=== PATIENT | female | born 1945 | race Caucasian/White ===

== ENCOUNTER → 2024-02-12 14:50 | Outpatient (REF) | payer MEDICARE, SELFPAY | LOC: RAD 14:50 | PROVIDERS: ATTENDING PHYSICIAN Internal Medicine | DX: M79.671 Pain in right foot (principal) | CPT/HCPCS: 73630 ==

== ENCOUNTER → 2024-10-10 09:44 | Outpatient (REF) | payer MEDICARE, SELFPAY | LOC: RAD 09:44 | PROVIDERS: ATTENDING PHYSICIAN Internal Medicine | DX: M54.42 Lumbago with sciatica, left side (principal) | CPT/HCPCS: 72110 ==

== ENCOUNTER 2024-11-16 09:57 | Inpatient (IN) | payer MEDICARE, SELFPAY ==
[2024-11-16] VITALS (60 sets, daily range): BP systolic 73–198; BP diastolic 42–121; PULSE 2; BMI 39.2
--- NOTE | 2024-11-16 06:24 | EDRN ---
150mg IVP amiodarone given by MUKUND Ortiz per VO Dr Waggoner who requested it IVP, no infused over 10 minutes.
--- NOTE | 2024-11-16 06:25 | EDRN ---
Portable CXR being done - Dr Waggoner preparing to intubate.
[2024-11-16] MEDS: AMIDATE 20 MG IV (06:31)
--- NOTE | 2024-11-16 06:32 | EDRN ---
70mg IV rocuronium given at 0631 by Diana Goodman RN per Dr Waggoner
--- NOTE | 2024-11-16 06:33 | EDRN ---
Pt intubated with 7.[address] Waggoner, positive color change
[2024-11-16] MEDS: DIPRIVAN 100 IV ×2 (06:39→17:41)
--- NOTE | 2024-11-16 06:42 | ED.GENMED ---
History of Present Illness
General
Chief Complaint: Breathing Problem
Time Seen by Provider: 11/16/24 06:16
History of Present Illness
History of Present Illness:
79-year-old female with history of high blood pressure, diabetes, hyperlipidemia, arthritis presenting in respiratory distress. Per medics, arrived to the house with increased work of breathing and tachycardia. Patient was placed on CPAP and given
a DuoNeb. They were concerned for SVT, however no medications administered. On arrival, patient limited historian given her increased work of breathing, diaphoretic. Patient does note cough. Denies chest pain or fever. Denies any history of
COPD. Denies any history of CHF. No additional history obtained at this time given her critical condition
Past History
Past History
ED Past Medical History: NIDDM
ED Past Surgical History: Orthopedic (Bilateral knee replacements and recent left hip replacement.)
Social History
Tobacco: Non-smoker
Alcohol: None
Drug: None
Personal:
Living: with family
Employment: Retired
Family History
Family History: Other (Noncontributory)
Phy Exam
Physical Exam
Physical Exam:
General: Severe respiratory distress, diaphoretic
HEENT: Minimally protecting airway
Neck: appears supple
CV: Normal heart rate, regular rhythm
Resp: Increased work of breathing, accessory muscle use, rhonchorous breath sounds bilaterally
Abd: Soft and non-distended, no tenderness to palpation
Extremities: No deformities, no swelling, no erythema
Neuro: alert, no focal neurologic deficit. Somnolent but arousable
: deferred
Rectal: deferred
Psych: Normal affect
Skin: Intact
Scores
Heart Failure Risk
Heart Failure Risk Score: Not Applicable
Course
Orders/Labs/Results
Orders:
Orders
11/16/24
Echo 2D MMode Color/Doppler Stat
Reason for Study: HEART FAILURE
11/16/24 Breakfast
NPO
Allow oral meds: No
Allow clear liquids: No
11/16/24 06:13
Chest X-ray Portable [CR Chest Portable - 1 View] Stat
Comment:
Reason For Exam: sob
Reason Study Needs to be Portable: Patient Unstable
11/16/24 06:16
Electrocardiogram (*1) Urgent
Reason for Study: Shortness of Breath
EKG- Treatment ONCE
11/16/24 06:23
CT Chest PE Study Urgent
Comment:
Reason For Exam: SOB
11/16/24 06:28
Etomidate [Amidate 20 mg] 20 mg IV NOW STA
11/16/24 06:31
Etomidate [Amidate] 20 mg IV NOW STA
11/16/24 06:34
Propofol 1,000,000 Mcg/100 ml [Diprivan] 1,000,000 mcg in 100 ml .ROUTE .STK-MED
11/16/24 06:42
Complete Blood Count/With Diff Urgent
Comprehensive Metabolic Panel Urgent
NT-proBNP Urgent
PTT Urgent
Prothrombin Time Urgent
Triglycerides Urgent
Comment: ADD ON
Venous Blood Gas Urgent
%Oxygen/Room Air: 100
11/16/24 06:51
EKG [Electrocardiogram (*1)] Urgent
Reason for Study: Tachycardia
EKG- Treatment ONCE
11/16/24 06:52
Amiodarone [Cordarone] 150 mg .ROUTE .STK-MED ONE
11/16/24 06:59
Lactate Level [Lactic Acid] Urgent
11/16/24 07:00
Amiodarone [Cordarone] 900 mg DEXTROSE 5% PVC-free BAG [D5W PVC-free BAG] 500 ml IV ONCE
11/16/24 07:03
Amiodarone [Cordarone] 900 mg DEXTROSE 5% PVC-free BAG [D5W PVC-free BAG] 500 ml IV NOW
Initial Dose in mg/min:: 1
Duration of initial dose (hours):: 6
Subsequent dose in mg/min:: 0.5
Duration of subsequent dose (hours):: 18
Maximum dose in mg/min:: 1
Hold and notify provider if:: Heart rate < 60 BPM or SBP < 90 mmHg or MAP < 60 mmHg
11/16/24 07:07
COVID-19 Antigen Urgent
Source: Nasal Swab
Influenza A+B Rapid Molecular Urgent
PRACHI Source: Nasal Swab
Specimen Description:
11/16/24 07:09
Add On- LAB Routine
Tests Added?: triglycerides
11/16/24 07:10
Blood Culture Q30M
PRACHI Source: Blood/Venous
Specimen Description:
Blood Culture Q30M
PRACHI Source: Blood/Venous
Specimen Description:
11/16/24 07:15
Propofol 1,000,000 Mcg/100 ml [Diprivan] 1,000,000 mcg in 100 ml IV PER PROTOCOL
Indication:: Deep Sedation
Begin Infusion:: Now
Goal:: RASS -3 to -5 or BIS < 60 or ventilator synchrony
Maximum dose in mcg/kg/min:: 50
Continue currently infusion dose and titrate:: Yes
Titration Instructions:: Titrate by 5-10 mcg/kg/min every 5 minutes until RASS -3 to -5 or
Titration Instructions:: BIS < 60 or ventilator synchrony is met.
Titration Instructions:: Administer analgesia bolus dose(s) & titrate analgesia prior to
Titration Instructions:: adjusting sedation.
Taper Instructions:: If RASS is at or below goal for 4 consecutive hours decrease infusion by
Taper Instructions:: 5-10 mcg/kg/min every 2 hours. Do not wean infusion to off if patient is
Taper Instructions:: receiving a continuous NMBA or has received bolus NMBA with the past 3 hrs
Over-sedation Instructions:: If BIS < 40 and synchronous with ventilator decrease infusion by
Over-sedation Instructions:: 5-10 mcg/kg/min every 2 hour until BIS = 40-60.
Notify provider:: immediately if patient exhibits signs/symptoms of propofol-related
Notify provider:: infusion syndrome.
Additional Instructions:: Patient MUST be mechanically ventilated and MUST receive analgesia.
11/16/24 07:24
Propofol [Diprivan] 20 ml .ROUTE .STK-MED
11/16/24 07:25
Amiodarone [Cordarone] 150 mg Dextrose 5%/Water 100 ml [D5w] 100 ml IV NOW
11/16/24 07:50
0.9% Sodium Chloride 1000 ml [Nss] 1,000 ml IV BOLUS
11/16/24 08:16
FentaNYL 1,000 MCG/100 ML [Sublimaze] 1,000 mcg in 100 ml .ROUTE .STK-MED
11/16/24 08:17
ABG [Arterial Blood Gas] Stat
%Oxygen/Room Air: ac 18 500 5 100%
Comment: post intubation
11/16/24 08:59
NORepinephrine 4 MG/250 ML [Levophed] 4 mg in 250 ml .ROUTE .STK-MED
11/16/24 09:00
NORepinephrine 4 MG/250 ML [Levophed] 4 mg in 250 ml IV PER PROTOCOL
Currently infusing. Continue current dose and titrate:: Yes
Titrate to keep:: MAP > 65 mmHg
Titrate by mcg/min:: 1-2 mcg/min
Frequency of titrations (minutes):: 5
Maximum dose in ICU in mcg/min:: 30
Maximum dose in IMU in mcg/min:: 8
Maximum dose in IVU in mcg/min:: 4
Begin to taper infusion when:: Remained at goal for 4hrs
Taper by mcg/min:: 1-2 mcg/min
Frequency of taper (minutes) if patient maintains goal:: 30
Taper to off?: Yes
If infusion off & no longer maintaining goal:: Contact Provider
11/16/24 09:15
Admit/Transfer Patient As Directed
Co-Sign Provider:
Level of Care: Inpatient admission
Assign to:: ICU
Physician / Group: radhaist-Jose Raul
Diagnosis: resp distress
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
Expected length of stay greater than two midnights?: Yes
ELOS- Estimated Length of Stay in days: 5
I certify the patient meets the requirements for IP care: Yes
PRN Pain Medication Management As Directed
May give lesser potent ordered pain med per pt: Yes
preference::
Protocol:: Medication orders for pain may be administered in a
manner that supports deferring to patient preference
when the pt is:
- Requesting an ordered lesser potent pain medication.
Least to most potent pain medications are defined
as: acetaminophen < NSAID < tramadol < opioids
(morphine, oxycodone, hydromorphone).
- Requesting a lesser dose of the same medication IF
ORDERED.
- Requesting a less intrusive route of administration
if both routes are prescribed by the provider (PO <
IV).
11/16/24 09:17
Troponin I Stat
Aspirin 300 mg RECTAL NOW STA
11/16/24 09:18
Code Status As Directed
Resuscitation Status: Full Code
11/16/24 09:30
0.9% Sodium Chloride 1000 ml [Nss] 1,000 ml IV 125 mls/hr
11/16/24 09:44
Heparin 10,000 units .ROUTE .STK-MED ONE
Heparin 1000 Units/500 ml [Heparin] 1,000 units in 500 ml .ROUTE .STK-MED
Heparin Sodium,Porcine/Ns/Pf [Heparin 2000 Units/1000 ml] 2,000 unit in 1,000 ml .ROUTE .STK-MED
Lidocaine HCl/Pf [Xylocaine-Mpf 1% Vial] 50 mg .ROUTE .STK-MED ONE
Nitroglycerin [Tridil] 1,500 mcg .ROUTE .STK-MED ONE
Verapamil Injectable [Isoptin/Verapamil Injection] 5 mg .ROUTE .STK-MED ONE
11/16/24 09:48
FentaNYL 1,000 MCG/100 ML [Sublimaze] 1,000 mcg in 100 ml IV NOW
11/16/24 11:37
Dextrose 50%-Water [Dextrose 50% Syringe] 12.5 grams IV [id number] PRN
Glucagon [GlucaGen] 1 mg IM PRN PRN
Insulin Aspart Corrective Low [Novolog Flexpen-Low Resistance] See Protocol SC AC
11/16/24 11:37
CARDIOLOGY CONSULT Routine
Consulting Provider: Adrian Hussein
Was physician already notified: Yes
HF DIETARY CONSULT Routine
HF EDUCATOR CONSULT Routine
Comment:
Wing Mailer Machine Operator Consult Routine
Consulting Provider: Kobe Dickey
Was physician already notified: Yes
Activity As Directed
Activity Level: Bedrest
Bedside Glucose Monitoring As Directed
Frequency: AC&HS
Additional Instructions:: Change to q6h if pt on TPN, tube feeding or not eating
Castillo Catheter [Catheter- Indwelling] As Directed
Reason for insertion: I&O's Critical Care
Assess insertion reason daily.Remove if no longer applicable: Yes
Intake/ Output As Directed
Frequency: Per unit guidelines
Patient Education As Directed
Type: CHF folder
Comment: give on admission. Document in Interdisciplinary Education record
Sleep Apnea Assessment by RN As Directed
Comment:
Physician Instructions:
Vital Signs As Directed
Frequency: Other
Additional Instructions:: Q12 or per unit guidelines if more frequent.
Weight As Directed
Frequency: Daily
Type of Scale: Standing Scale
Comment: Daily morning weight. If unable to stand, use balanced bed scale.
Weight As Directed
Frequency: Once
Type of Scale: Standing Scale
Comment: Upon Admission. If unable to stand, use balanced bed scale.
Pulse Ox/cont/shift [RESP] Routine
Quantity: 1
Special Instructions: Daily pulse oximetry at rest. If greater than 92% at rest also obtain pulse oximetry
while ambulating as tolerated.
DX Deep Vein Thrombosis Video Routine
11/16/24 12:35
Lactic Acid Q4H
TSH Reflex To Free T4 Routine
Troponin I Q6H
Comment: at admission & every 6 hours x 2 (3 total), ECG to be done with each level
11/16/24 13:05
Urinalysis Reflex To Culture Routine
Date Specimen was Collected: 11/16/24
Time Specimen was Collected: 13:04
11/16/24 17:37
Troponin I Q6H
Comment: at admission & every 6 hours x 2 (3 total), ECG to be done with each level
11/16/24 18:00
Enoxaparin Sodium [Lovenox] 40 mg SC QPM
11/16/24 19:37
Lactic Acid Q4H
11/16/24 20:00
Cefepime HCl [Maxipime] 1,000 mg IV Q6H
11/16/24 23:37
Lactic Acid Q4H
Troponin I Q6H
Comment: at admission & every 6 hours x 2 (3 total), ECG to be done with each level
11/17/24 06:00
Cardiovascular Evaluation IN AM
Complete Blood Count/No Diff IN AM
Comprehensive Metabolic Panel IN AM
Glycohemoglobin (HgbA1c) IN AM
Magnesium IN AM
11/19/24 06:00
Triglycerides Q3D
Comment: every 72 hours while patient is on propofol
11/22/24 06:00
Triglycerides Q3D
Comment: every 72 hours while patient is on propofol
11/25/24 06:00
Triglycerides Q3D
Comment: every 72 hours while patient is on propofol
Abnormal Lab Results
11/16/24 11/16/24 11/16/24
06:42 06:44 06:59
WBC 26.0 H 10^3/uL
(4.8-10.8)
Abs Immat Gran (auto) 0.3 H 10^3/uL
(0-0.05)
Absolute Neuts (auto) 22.2 H 10^3/uL
(1.4-6.5)
Absolute Monos (auto) 0.8 H 10^3/uL
(0.1-0.6)
Immature Gran % 1.3 H %
(0-0.5)
Neutrophils % 85.3 H %
(42.2-75.2)
Lymphocytes % 9.2 L %
(20.5-51.1)
pH
pCO2
pO2
VBG pH 7.22 L
(7.32-7.43)
VBG pCO2 56 H mmHg
(35-48)
VBG pO2 89 H mmHg
(30-50)
Chloride 97 L mmol/L
(98-107)
BUN 31 H mg/dl
(7-17)
Glucose 304 H mg/dl
(70-99)
Lactic Acid 4.2 H* mmol/L
(0.7-2.0)
Triglycerides 246 H mg/dl
(10-149)
POC Glucose 284 H mg/dl
(70-99)
11/16/24
08:17
WBC
Abs Immat Gran (auto)
Absolute Neuts (auto)
Absolute Monos (auto)
Immature Gran %
Neutrophils %
Lymphocytes %
pH 7.30 L
(7.35-7.45)
pCO2 45 H mmHg
(32-35)
pO2 119 H mmHg
(83-108)
VBG pH
VBG pCO2
VBG pO2
Chloride
BUN
Glucose
Lactic Acid
Triglycerides
POC Glucose
11/16/24 06:42
11/16/24 06:42
Vital Signs
Initial and Last Documented VS:
Initial Vital Signs
Pulse Ox
98
11/16/24 06:12
Last Documented Vital Signs
Pulse Resp BP Pulse Ox
85 20 109/64 94
11/16/24 15:15 11/16/24 15:15 11/16/24 15:15 11/16/24 15:15
Procedures
Intubations
Procedure completed by: Maria G Waggoner DO
Method of Intubation: glidescope
Tube size (cm): 7.5
Placement confirmed by: auscutation and CXR
Breath sounds after intubation: equal
Intubation complications: no complications
Central Line
Left Femoral:
Indication for procedure:: hypotension
Procedure completed by: Maria G Waggoner DO
Consent form signed: Yes
Anesthesia: 1% Lidocaine
Central line lumen: triple
Number of attempts: 1
Central line complications: none
Sterile dressing applied?: Yes
MDM/Problems Addressed
MDM/Problems Addressed:
79-year-old female with history of high blood pressure, hyperlipidemia, diabetes presenting with acute respiratory distress. Vital signs and arrival significant for hypoxia and tachypnea.
On arrival, patient and respiratory distress with increased work of breathing, somnolent however arousable. Unclear history, does note some cough. Initial attempt at BiPAP, however minimally protecting airway, so decision made to proceed with
intubation given her work of breathing. Please see procedure note. Differential considerations include pneumonia versus influenza versus PE versus cardiac pathology. EKG shows left bundle branch block, which appears new from 2018, however no
[place] criteria. Prior to intubation, patient did have a run of ventricular tachycardia, received 1 bolus of amiodarone. Plan for laboratory analysis, chest x-ray imaging, propofol drip for sedation.
07:00 - No complications with intubation, however patient now in sustained wide complex, tachycardia. Patient shocked 2 times at 200 J, followed by 2 times at 360, synchronized. No conversion of rhythm. Starting amnio drip. Cardiac consulted,
will come down for evaluation. Patient with elevated white blood cell count, will start broad-spectrum antibiotics. Plan for CT imaging of the chest when stabilized
07:35 -cardiology to bedside, recommends additional amnio bolus. Discussed with family, and daughters. Reports that patient was in her usual state of health last evening. This morning around 3 AM, woke up feeling short of breath. Only
complaint the patient had had for the past several months was right leg pain, was scheduled to get an MRI. No history of blood clots in the past. No significant history of cardiac issues or arrhythmias. At this time, continue concern for PE.
Will send to CT as soon as patient stabilized
08:40 -central line placed due to need for multiple IV medications including sedation, antibiotics. CT without evidence of PE, motion artifact. Evidence of suspected pneumonia. Patient meeting criteria for septic shock. Will continue IV fluids
and antibiotics. Holding full 30 cc/kg fluid bolus given pulmonary edema on CT as well, possible concomitant heart failure. Plan for admission to ICU.
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 Plan to take patient to the [facility]
*EKG
Interpreted by ED Provider?: Yes
EKG Intrepretation Date: 11/16/24
EKG Intrepretation Time: 06:46
Interpretation: abnormal
Comparison EKG: changes noted (04/16/18)
Heart Rate: 82
Rate: normal
Rhythm: sinus
[place]: normal axis
Interval: normal interval
QRS Pattern: left bundle branch block
Ischemia: no ischemia
*Critical Care Note
Total Time (30-74mins, 75-104mins- exclusive of procedures): 150
comment:
The high probability of a clinically significant, sudden or life threatening deterioration of the cardiopulmonary system(s) required my full and direct attention, intervention and personal management. The aggregate critical care time was 62 minutes.
This time is in addition to time spent performing reported procedures but includes the following:
[x] Data Review and interpretation
[x] Patient assessment and monitoring of vital signs
[x] Documentation
[x] Medication orders and management
ED Attending Note
-
Portions of this chart may have been created with voice recognition software.� Occasional wrong word or��sound alike� substitutions may have occurred due to the inherent limitations of voice recognition software.
Discharge Plan
Departure
Patient Disposition: Admit
Date of Disposition: 11/16/24
Time of Disposition: 08:51
Presentation/result/management discussed w/ accepting MD/DO: Hospitalist
Condition: Critical
Discharge Problem:
Septic shock, Multifocal pneumonia, Respiratory failure with hypoxia
Interventions
Interventions:
*Risk Screen - Suicide Last Done: 11/16/24 06:15
*General Assessment Last Done: 11/16/24 06:15
*Neglect/Abuse Screening Last Done: 11/16/24 06:15
*ED COVID-19 Vaccine History Last Done: 11/16/24 06:33
*Nursing Disposition Last Done: 11/16/24 10:28
Discharge Date and Time
Discharge Date/Time: 11/16/24 10:00
[2024-11-16 06:45] LABS: Glucose - Point of Care 284 mg/dl (70-99)
--- NOTE | 2024-11-16 06:48 | EDRN ---
Pt in [place] with bonnie - Dr Waggoner shocked pt at 200J
--- NOTE | 2024-11-16 06:49 | EDRN ---
Pt shocked with 200J again by Dr Waggoner - remains in [place] with pulse
--- NOTE | 2024-11-16 06:51 | EDRN ---
Dr Waggoner shocked pt at [facility] - called pharmacy for stat amiodarone infusion
--- NOTE | 2024-11-16 06:55 | EDRN ---
Pads repositioned by Dr Ring - Pt shocked at 360J by Dr Waggoner
[2024-11-16 07:01] LABS: Hematocrit 41.7 % (37.0-47.0); Mean Corp Hgb Conc. 33.6 g/dL (33.0-37.0); Mean Corpuscular Volume 86.5 fL (81.0-99.0); Mean Platelet Volume 9.2 fL (7.4-10.4); Platelet Count 338 10^3/uL (130-400); Red Blood Cell Count 4.82 10^6/uL (4.20-5.40); Red Cell Dist. Width 13.4 % (11.5-14.5)
[2024-11-16] MEDS: CORDARONE 518 MG IV (07:04)
[2024-11-16 07:07] LABS: INR 1.02; PT 13.7 Sec (11.4-14.6)
[2024-11-16 07:08] LABS: APTT 26.2 Sec (23.4-35.0)
[2024-11-16 07:12] LABS: ALT (SGPT) 27 U/L (0-35); AST (SGOT) 35 U/L (14-36); Albumin 4.8 g/dl (3.5-5.0); Alkaline Phosphatase 74 U/L (38-126); Blood Urea Nitrogen 31 mg/dl (7-17); Calcium 9.4 mg/dl (8.4-10.2); Carbon Dioxide 24 mmol/L (22-30); Chloride 97 mmol/L (98-107); Glucose 304 mg/dl (70-99); Potassium 4.4 mmol/L (3.5-5.1); Sodium 138 mmol/L (135-145); Total Bilirubin 0.9 mg/dl (0.2-1.3); Total Protein 7.6 g/dl (6.3-8.2); eGFR > 60.00
--- NOTE | 2024-11-16 07:13 | EDRN ---
Called pharmacy for vancomycin
[2024-11-16 07:18] LABS: Triglycerides 246 mg/dl (10-149)
[2024-11-16 07:19] LABS: Venous Blood Gas B.E. -5.6 mmol/L (-4 to +4); Venous Blood Gas HCO3 22.9 mmol/L (22-27); Venous Blood Gas O2 Sat % 96.3 %; Venous Blood Gas pCO2 56 mmHg (35-48); Venous Blood Gas pH 7.22 (7.32-7.43); Venous Blood Gas pO2 89 mmHg (30-50)
[2024-11-16 07:20] LABS: NT-proBNP 353 pg/ml
[2024-11-16] MEDS: CORDARONE 103 MG IV (07:25)
[2024-11-16 07:44] LABS: Lactic Acid 4.2 mmol/L (0.7-2.0)
[2024-11-16 07:45] LABS: COVID-19 Antigen Negative (Negative)
--- NOTE | 2024-11-16 07:52 | CON.CAR ---
Consultation
Consultation Request
Date/Time Consultation Requested: 11/16/2024 7 AM
Date/Time Consultation Performed: 11/16/2024 7:10 AM
Requesting Provider: Emergency department physician
Performing Provider: Dr. Hussein
Reason for Consultation: Acute respiratory failure your, left bundle branch block and tachycardia
Medical History
-
History of Present Illness:
79-year-old woman previously followed by Dr. Urbano history of left bundle branch block, history of palpitations related to symptomatic PVCs, NSVT up to 4 beats on prior monitoring, diabetes and hypertension. Patient's been having issues with
her right lower extremity pain 4 weeks and was going to have evaluation for but has not had any additional imaging. Has made ambulation difficult. This morning patient woke up and then went downstairs and then had acute onset of shortness of
breath EMS called. Patient brought to ER on arrival patient had reported cough but no other complaints and patient was so short of breath not much history could be obtained. Patient intubated shortly after arrival to the emergency department.
Initial ECG with sinus and left bundle branch block. Patient noted to have some wide-complex tachycardia prior to intubation so was placed on IV amiodarone. Follow-up ECG showed wide-complex tachycardia with left bundle branch block morphology
consistent with baseline ECG. Findings most likely SVT or atrial flutter with underlying left bundle branch block.
No reports of chest pain
No history of coronary artery disease. No history of DVT or PE.
Additional history obtained from patient's and daughters who state that she had not been complaining of shortness of breath cough or any recent illness.
Patient with no known history of coronary artery disease previous echocardiogram from 2020 with ejection fraction of 60% mild eccentric mitral regurgitation and aortic sclerosis without stenosis.
Past medical history
Diabetes
Hypertension
Hypercholesterolemia
Bilateral knee replacement
Bilateral hip replacement
Symptomatic PVCs
Past Medical History
Past Medical History: Other (As above)
Social History
Tobacco: Non-Smoker
Personal:
Family History
Family History: CAD
Allergies / Home Medications
Allergy/AdvReac Type Severity Reaction Status Date / Time
No Known Allergies Allergy Verified 11/16/24 06:32
�Medication �Instructions �Recorded �Confirmed �Type
hydrochlorothiazide 50 mg tablet 50 mg PO DAILY 11/18/11 01/22/13 History
lisinopril 10 mg tablet 10 mg PO DAILY 11/18/11 01/22/13 History
metformin 500 mg tablet,extended 500 mg PO DAILY 02/18/12 01/22/13 History
release 24 hr (Glucophage XR)
Aspirin 81 mg PO DAILY 01/01/13 01/22/13 History
Calcium/Magnesium/Zinc 1 tab PO DAILY 01/01/13 01/22/13 History
Colon Health - Probiotic 1 tab PO DAILY 01/01/13 01/22/13 History
Over 40 Multivitamin 1 tab PO DAILY 01/01/13 01/22/13 History
Tramadol Hcl 50 mg PO PRN hip pain 01/01/13 01/22/13 History
ascorbic acid (vitamin C) 500 mg 500 mg PO DAILY 01/01/13 01/22/13 History
tablet (Vitamin C)
cholecalciferol (vitamin D3) 25 1,000 unit PO DAILY 01/01/13 01/22/13 History
mcg (1,000 unit) capsule
coenzyme Q10 100 mg capsule 200 mg PO DAILY 01/01/13 01/22/13 History
(CoQ-10)
cranberry fruit concentrate 450 mg 450 mg PO BID 01/01/13 01/22/13 History
tablet
lutein 20 mg capsule 20 mg PO DAILY 01/01/13 01/22/13 History
simvastatin 40 mg tablet 40 mg PO DAILY 01/01/13 01/22/13 History
vitamin B complex 1 ea PO DAILY 01/01/13 01/22/13 History
Tylenol Arthritis 2 PO DAILY PRN pain 01/21/13 01/22/13 History
acetaminophen 325 mg tablet 2 PO PRN pain 01/21/13 01/22/13 History
Review of Systems
-
Unable to obtain full review of systems at this time due to: Patient Intubation
Physical Exam
Vital Signs
Pulse Resp BP Pulse Ox
151 18 145/87 94
11/16/24 07:10 11/16/24 07:10 11/16/24 07:10 11/16/24 07:10
Lab Results
11/16/24 06:42
11/16/24 06:42
Qaj-T-Cnervcolsug Pept 353 pg/ml 11/16/24 06:42
Physical Exam
General: Other (Intubated sedated)
HEENT: Other (Pupils are equal ET tube in place external ear exam unremarkable)
Respiratory: Other (Vented breath sounds with no wheezing or rhonchi)
Cardiac: Regular Rhythm (Tachycardic and regular no murmurs auscultated. Significant and extrinsic noise during exam)
GI: Soft and Other (Obese with no detected masses)
Musculoskeletal: No Clubbing and No Cyanosis
Skin: Warm
Neuro: Other (Sedated and intubated)
Psych: Other (Sedated and intubated)
Impression / Plan
-
Acute respiratory failure. Exact etiology unclear. Would consider pulmonary embolism in this patient who has had issues with right lower extremity pain, limitations in ambulation and obesity. Will also need to consider other causes as well.
-Chest CT/PE protocol. Additional recommendations based on results.
-echo
.
Wide-complex tachycardia. Patient with underlying left bundle branch block patient with a heart rate of 150 with stable blood pressure. Likely aberrantly conducted SVT or possible atrial flutter
-Continue IV amiodarone.
,
Right lower extremity pain. Has been persistent for weeks patient with previous knee replacement and hip replacement exact etiology unclear. With WBC count of 26 possibility of underlying infection a consideration.
-Additional evaluation as directed by primary team.
.
Diabetes management directed by primary team
-Hypertension. Stable. Monitor
Hypercholesterolemia. Continue statin
Critical care time 60-minute
Data Reviewed
-
EKG: Report Reviewed by me
Medical Tests (Nuc Med, Echo etc): Report Reviewed by me
Labs: Labs Reviewed by me
[2024-11-16 08:24] LABS: % Basophils 0.5 % (0-2); % Eosinophils 0.6 % (0-6); % Immature Granulocytes 1.3 % (0-0.5); % Lymphocytes 9.2 % (20.5-51.1); % Monocytes 3.1 % (1.7-9.3); % Neutrophils 85.3 % (42.2-75.2); Absolute Basophils 0.1 10^3/uL (0-0.2); Absolute Eosinophils 0.2 10^3/uL (0-0.7); Absolute Immature Granulocytes 0.3 10^3/uL (0-0.05); Absolute Lymphocytes 2.4 10^3/uL (1.2-3.4); Absolute Monocytes 0.8 10^3/uL (0.1-0.6); Absolute Neutrophils 22.2 10^3/uL (1.4-6.5); Nucleated Red Blood Cells % 0 %
[2024-11-16 08:29] LABS: B.E. -4.3 mmol/L; HCO3 22.1 mmol/L (21-28); PCO2 45 mmHg (32-35); PO2 119 mmHg (83-108)
[2024-11-16] MEDS: NSS 1000 IV ×4 (08:46→22:16)
--- NOTE | 2024-11-16 09:21 | HPS.HSE ---
Family Physician
-
Family Physician: Jennifer Gallardo
Chief Complaint
-
SOB
History of Present Illness
Patient is a 79-year-old female currently intubated who cannot provide any history to what happened this morning. History has been obtained through chart review.
As per the chart, patient is a 79-year-old female with a history of chronic left bundle branch block, symptomatic PVCs, nonsustained V. tach along with type 2 diabetes mellitus and essential hypertension. Reportedly, patient had right lower
extremity pain ongoing for 4 weeks but had no imaging done. On the morning of admission, patient woke up and went downstairs and had an acute onset of shortness of breath. Upon arrival to the emergency department patient was so short of breath
that she could not provide any history. Oxygen saturations were low and the patient was intubated. Initial EKG was consistent with her left bundle branch block. After intubation, patient had wide-complex tachycardia and was placed on IV
amiodarone. There were no reports of chest pain. Patient is intubated and going to the intensive care unit. Cardiology is at the bedside and the patient will go for catheterization prior to ICU.
Medical History
Past Medical History
Past Medical History: Reports Other
Additional Past Medical History:
Type 2 diabetes
Essential hypertension
Hyperlipidemia
Chronic bundle branch block with symptomatic PVCs
Past Surgical History: Reports Other
Additional Past Surgical History:
Bilateral knee and hip replacements
Social History
Unable to obtain full social history at this time due to: Patient Intubation
Family History
Family History: Unable to Obtain
Allergies / Home Medications
Allergies reflects when Allergies were last updated in [facility].
Home Medications with original date entered in [facility]
Allergy/Medication List:
Med rec not performed
If medication reconciliation has not been performed, why?: Other (Patient intubated)
Review of Systems
-
Unable to obtain full review of systems at this time due to: Patient Intubation
Physical Exam
Vital Signs
Vital Signs
Pulse Resp BP Pulse Ox
151 18 145/87 94
11/16/24 07:10 11/16/24 07:10 11/16/24 07:10 11/16/24 07:10
Physical Exam
General: Well Developed, Well Nourished, Morbidly Obese and Intubated
HEENT: NormoCephalic and Atraumatic
Respiratory: Rhonchi (Coarse breath sounds anteriorly--exam limited as patient was getting echocardiogram)
Cardiac: Irregular Rhythm and Tachycardia
GI: Soft, Non Tender, Non Distended and Normal Bowel Sounds
Musculoskeletal: No Clubbing and No Cyanosis; No No Edema (2+ lower extremity edema bilaterally)
Neuro: Awake; No Sedated (Trying to sedate)
Laboratory Results
-
11/16/24 06:42
11/16/24 06:42
Laboratory Results
PT 13.7 Sec (11.4-14.6) 11/16/24 06:42
INR 1.02 11/16/24 06:42
APTT 26.2 Sec (23.4-35.0) 11/16/24 06:42
pH 7.30 (7.35-7.45) L 11/16/24 08:17
pCO2 45 mmHg (32-35) H 11/16/24 08:17
pO2 119 mmHg (83-108) H 11/16/24 08:17
HCO3 22.1 mmol/L (21-28) 11/16/24 08:17
Lactic Acid 4.2 mmol/L (0.7-2.0) H* 11/16/24 06:59
Total Bilirubin 0.9 mg/dl (0.2-1.3) 11/16/24 06:42
AST 35 U/L (14-36) 11/16/24 06:42
ALT 27 U/L (0-35) 11/16/24 06:42
Alkaline Phosphatase 74 U/L (38-126) 11/16/24 06:42
Impression/Plan
-
Patient is a 79-year-old female
Acute hypoxemic respiratory failure requiring intubation with shock physiology/lactic acidosis--CAT scan of the chest is negative for pulmonary embolism--with chronic left bundle branch block, stat echo was ordered by cardiology (being performed
now) seems to have wall motion abnormality, therefore plans are to take patient to [facility]--no troponins are checked we will order now, continue amiodarone drip--continue pressor support for hypotension (unclear if cardiogenic shock, septic shock,
or from sedating medications given for intubation)--continue Levophed for now--would also give IV fluids as proBNP is negative (353)--consult concrete pourer--Place Castillo catheter for critical care I/Os
Leukocytosis--possibly reactive--although patient with lactic acidosis and CT chest with suspicion for pneumonia/atelectasis/pneumonitis--will check blood cultures, urine culture, continue cefepime for now--trend lactates
Type 2 diabetes mellitus--blood sugar on arrival 304--will start with basal bolus sliding scale insulin coverage--patient is to remain n.p.o.
Essential hypertension--all outpatient meds on hold given need for pressors
Hyperlipidemia--oral meds on hold--follow triglycerides while on propofol
DVT prophylaxis--Lovenox ordered
CODE STATUS--full code
[2024-11-16] MEDS: ASPIRIN 300 MG RECTAL (09:25)
--- NOTE | 2024-11-16 09:29 | W.PN.UPDATE ---
Update Note
Progress Note Update
Chest CT without clear evidence of pulmonary embolism there was some degradation in images due to motion so pulmonary vascular could not be assessed beyond segmental level. Pulmonary process suspicious for pneumonia and atelectasis with scattered
regions of subtle groundglass opacity as noted possible mild edema or nonspecific pneumonitis.
I reviewed CT results with radiology I had concern that initial chest x-ray had component of heart failure. Although CT is read as having component of pneumonia I have concern for onset of acute heart failure as part of her abrupt presentation echo
performed at bedside which shows wall motion abnormalities with apical, distal anterior, distal inferior and distal lateral hypokinesis distal septal dyskinesis with abnormal septal motion related to bundle branch block. Estimated ejection fraction
of 30 to 35%. Patient's last echo in 2020 with normal left ventricular function.
With the above findings of wall motion abnormalities on echocardiogram concern for acute [place]. Cardiac catheterization recommended.. Reviewed with interventional cardiology/Dr. Marmolejo. Also route reviewed with ER physician as well as Dr. Blunt.
Also discussed issues with patient's family including and daughter who are in agreement with proceeding with cardiac catheterization.
Note patient is now on the low-dose Levophed. Patient had a drop in blood pressure shortly after administration of additional sedation quired while patient is intubated.
.
time 35 min
--- NOTE | 2024-11-16 12:18 | CON.INTV ---
Consultation
Consultation Request
Date/Time Consultation Requested: 11/16/2024 - 1136
Date/Time Consultation Performed: 11/16/2024 - 1207
Requesting Provider: Dr. Blunt
Performing Provider: Dr. Dickey
Reason for Consultation: Hypoxia/Intubated/New LBBB/Possible PNA
Medical History
-
Chief Complaint: SOB
History of Present Illness:
79-year-old female with a past medical history of hypertension, hyperlipidemia, DM type II and history of recurrent UTI who presents with shortness of breath. Saturation at home while on room air was 82%. She has been having right leg pain for
about 3 months. Patient's shortness of breath worsened en route here to the hospital. In arrival to the ER she was short of breath with conversational dyspnea and hypoxic, and was intubated. Initial EKG showed a left bundle branch block. After
intubation she developed wide-complex tachycardia and placed onto IV amiodarone. She also was cardioverted which failed. Cardiology consulted with plans for left heart catheterization. Initially in the ER she was tachypneic to 25 breaths/min,
saturating 96% on BiPAP, and pulse rate 79. Initial labs showed leukocytosis to 26, respiratory acidosis with pH 7.22, pCO2 56, glucose 304, lactate 4.2, and COVID-19 antigen negative. Flu A/B swab was negative and blood cultures were collected.
CXR showed bibasilar parenchymal opacities suspicious for atelectasis versus pneumonia, as well as acute interstitial edema with prominent vascular congestion. Subsequent CTA chest showed volume overload with bilateral pleural effusions, bibasilar
consolidative opacities, and upper lobe predominant interlobular septal thickening with scattered subtle groundglass opacities. Patient was brought to the [facility] and found to have a 50% eccentric lesion in the mid LAD as well as a 70% lesion in
the proximal margin of the large first diagonal branch. Also severely elevated LVEDP at 26 mmHg and akinesis of the mid and apical left ventricle consistent with Takotsubo's cardiomyopathy patient transferred to the ICU for further care and
washer machine services consulted for additional management/recommendations.
When I saw the patient she was intubated on AC/CMV at 500/20/60%/5, with PIP: 24 cmH2O, VTe 481mL and breathing at 20 breaths/min. Currently sedated on propofol at 5mcg/kg/min. Heart rate 70, BP 87/63 and saturating 97%.
PMHx: Hypertension, hyperlipidemia, osteoarthritis, left wrist fracture, DM type II, history of recurrent UTI, dizziness
PSHx: Appendectomy, right total hip arthroplasty, x 2, left hip replacement, bilateral total knee replacement, right rotator cuff repair, cataract surgery, basal cell carcinoma s/p removal in neck
Past Medical History
Past Medical History: Other (Above as per HPI)
Past Surgical History: Other (Above as per HPI)
Social History
Tobacco: Non-smoker
Alcohol: None
Drug: None
Personal:
Living: With Family
Family History
Family History: CAD (Father + sibling) and Diabetes (Father, mother + maternal grandmother)
Allergies / Home Medications
Allergies
Allergy/AdvReac Type Severity Reaction Status Date / Time
No Known Allergies Allergy Verified 11/16/24 06:32
Home Medications
�Medication �Instructions �Recorded �Confirmed �Last Taken �Type
hydrochlorothiazide 50 mg tablet 50 mg PO DAILY 11/18/11 01/22/13 01/21/13 09:00 History
lisinopril 10 mg tablet 10 mg PO DAILY 11/18/11 01/22/13 01/21/13 09:00 History
metformin 500 mg tablet,extended 500 mg PO DAILY 02/18/12 01/22/13 01/21/13 20:00 History
release 24 hr (Glucophage XR)
Aspirin 81 mg PO DAILY 01/01/13 01/22/13 01/07/13 History
Calcium/Magnesium/Zinc 1 tab PO DAILY 01/01/13 01/22/13 01/07/13 History
Colon Health - Probiotic 1 tab PO DAILY 01/01/13 01/22/13 01/07/13 History
Over 40 Multivitamin 1 tab PO DAILY 01/01/13 01/22/13 01/07/13 History
Tramadol Hcl 50 mg PO PRN hip pain 01/01/13 01/22/13 01/07/13 History
ascorbic acid (vitamin C) 500 mg 500 mg PO DAILY 01/01/13 01/22/13 01/07/13 History
tablet (Vitamin C)
cholecalciferol (vitamin D3) 25 1,000 unit PO DAILY 01/01/13 01/22/13 01/07/13 History
mcg (1,000 unit) capsule
coenzyme Q10 100 mg capsule 200 mg PO DAILY 01/01/13 01/22/13 01/07/13 History
(CoQ-10)
cranberry fruit concentrate 450 mg 450 mg PO BID 01/01/13 01/22/13 01/07/13 History
tablet
lutein 20 mg capsule 20 mg PO DAILY 01/01/13 01/22/13 01/07/13 History
simvastatin 40 mg tablet 40 mg PO DAILY 01/01/13 01/22/13 01/21/13 20:00 History
vitamin B complex 1 ea PO DAILY 01/01/13 01/22/13 01/07/13 History
Tylenol Arthritis 2 PO DAILY PRN pain 01/21/13 01/22/13 01/21/13 12:00 History
acetaminophen 325 mg tablet 2 PO PRN pain 01/21/13 01/22/13 01/21/13 17:00 History
Review of Systems
-
Unable to Obtain full review of systems at this time due to: Patient Intubation
Vitals / Labs / Diagnostic Testing
Vital Signs
Pulse Resp BP Pulse Ox
103 23 86/62 98
11/16/24 09:55 11/16/24 09:55 11/16/24 09:55 11/16/24 11:30
Lab Data
11/16/24 06:42
11/16/24 06:42
Laboratory Results
11/16/24 11/16/24 11/16/24
06:42 08:17 13:01
PT 13.7
INR 1.02
APTT 26.2
pH 7.30 L 7.34 L
pCO2 45 H 28 L
pO2 119 H 195 H
HCO3 22.1 15.1 L*
O2 Delivery Level post intubation Room air 100%
Microbiology
11/16/24 07:07 Nasal Swab Influenza Types A & B (BLAISE) - Final
Negative for Influenza A & B, NAAT
Negative results must be combined with clinical observations
and patient history.
Nucleic Acid Amplification test (NAAT)performed on the
[employer] platform.
Diagnostic Testing:
Physical Exam
-
HEENT: Normocephalic, Anicteric and Other (ETT in place)
Cardiovascular: S1/S2 and Peripheral Edema (Trace lower extremity edema bilaterally)
Respiratory: Wheeze (negative), Rales (negative), Rhonchi (negative), Non-Labored Respirations and Other (Mechanical breath sounds heard bilaterally)
GI: Soft, Distended (Abdominal obesity), Non Tender and Normal Bowel Sounds
Neurology: Tremors (negative) and Other (Sedated)
Skin: Warm, Dry and Other (Scar seen in bilateral lower extremities)
General: Respiratory Distress (negative), Comfortable, Fever (negative) and Chills (negative)
Assessment
-
Assessment: 79-year-old female with a past medical history of hypertension, hyperlipidemia, DM type II and history of recurrent UTI who presents with shortness of breath. Saturation at home while on room air was 82%. She has been having right leg
pain for about 3 months. Patient's shortness of breath worsened en route here to the hospital. In arrival to the ER she was short of breath with conversational dyspnea and hypoxic, and was intubated. Initial EKG showed a left bundle branch block.
After intubation she developed wide-complex tachycardia and placed onto IV amiodarone. She also was cardioverted which failed. Cardiology consulted with plans for left heart catheterization. Initially in the ER she was tachypneic to 25
breaths/min, saturating 96% on BiPAP, and pulse rate 79. Initial labs showed leukocytosis to 26, respiratory acidosis with pH 7.22, pCO2 56, glucose 304, lactate 4.2, and COVID-19 antigen negative. Flu A/B swab was negative and blood cultures were
collected. CXR showed bibasilar parenchymal opacities suspicious for atelectasis versus pneumonia, as well as acute interstitial edema with prominent vascular congestion. Subsequent CTA chest showed volume overload with bilateral pleural
effusions, bibasilar consolidative opacities, and upper lobe predominant interlobular septal thickening with scattered subtle groundglass opacities. Patient was brought to the [facility] and found to have a 50% eccentric lesion in the mid LAD as well
as a 70% lesion in the proximal margin of the large first diagonal branch. Also severely elevated LVEDP at 26 mmHg and akinesis of the mid and apical left ventricle consistent with Takotsubo's cardiomyopathy patient transferred to the ICU for
further care and washer machine services consulted for additional management/recommendations.
Chronic conditions [facility] [facility]: Hypertension, hyperlipidemia, osteoarthritis, left wrist fracture, DM type II, history of recurrent UTI, dizziness
Impression:
#Acute respiratory failure with hypoxia + hypercapnia in setting of acute decompensated heart failure + suspected pneumonia now on mechanical ventilation
#Hx of LBBB s/p left heart cath showing a 50% eccentric lesion in the mid LAD as well as a 70% lesion in the proximal margin of the diagonal vessel, with severely elevated LVEDP at 26 mmHg and mid and apical LV akinesis consistent with Takotsubo's
cardiomyopathy
#Leukocytosis
#DM type II complicated by hyperglycemia
#Lactic acidosis
#Elevated troponin (initial troponin negative at 0.03 and then rise to 2.65 after left heart cath)
#History of hypertension
#History of hyperlipidemia
#History of recurrent UTI
#Morbid obesity (BMI: 41)
Plan:
- Continue with mechanical ventilation with daily SAT/SBT if clinically appropriate
- Titrate FiO2 + PEEP to maintain SpO2 >90-94%
- Maintain plateau pressure <30
- Oropharyngeal + deep ETT suctioning as needed
- Aspiration precautions by keeping HOB >30-45�
- Check ABG s/p intubation
- prn nebulized bronchodilators - not currently bronchospastic
- Patient underwent left heart cath today and was diagnosed with toxic was cardiopathy. She does have a 50% eccentric lesion in the mid LAD as well as a 70% lesion in the proximal margin of the first diagonal, however no PCI performed
- Of note, prior EKG from 2018 also showed evidence of LBBB
- Unable to do GDMT currently due to hypotension
- May benefit from ASA and high intensity statin given the LAD lesions --> defer to cardiology
- Given wide-complex tachycardia that was present after intubation, continue with amiodarone, currently at 1 mg/min
- Cardiology on board and recommendations appreciated
- Check echo
- Her CTA chest showed bilateral dependent confluent parenchymal opacities, unable to rule out pneumonia although atelectasis from bilateral pleural effusions with pulmonary edema is more likely
- Given that patient has leukocytosis with WBC 26, would cover empirically with antibiotics (currently on cefepime; add doxy)
- Follow up blood Cx and check sputum Cx from ETT
- Check urine antigens for legionella and Strep PNA
- Follow up urine Cx as well
- Trend WBC and monitor fever curve
- Maintain MAP>65
- Not currently requiring vasopressors
- Continue to trend lactate until <2mmol/L
- Continue to trend troponin, although it is likely elevated at 2.65 from preceding left heart catheterization
- Replete electrolytes with K>4, Mg>2
- Maintain euglycemia with goal BG 140-180 using ISS q6hr
- Trend H/H and transfuse if needed to keep Hb>7-8g/dL; keep plt>20k, unless there is concern for bleeding then keep plt>50k
- DVT ppx: LMWH
Patient is critically ill and requires ICU level of care.
Critical care statement: A total of 41 minutes of critical care time was provided for this patient today. This includes management of unstable vital signs, evaluation of the patient at bedside, reviewing the patient's pertinent medical records
including radiographs, microbiology, laboratory evaluations, and discussion with primary team, consultants, pharmacy, nutrition, physical therapy, case management, charge nurse, critical care nursing, and respiratory therapy.
Data:
CTA Chest 11/16/2024:
Respiratory motion degradation limits evaluation of pulmonary vasculature beyond the segmental level. As far as visualized, no pulmonary arterial filling defects are identified to suggest pulmonary embolus.
Pulmonary parenchymal process, as described, suspicious for combination of pneumonia and atelectasis. Scattered regions of subtle groundglass opacity are noted. Possible mild edema or nonspecific pneumonitis.
[2024-11-16 13:12] LABS: B.E. -9.3 mmol/L; O2 Saturation % 99.6 % (94-98); PCO2 28 mmHg (32-35); PO2 195 mmHg (83-108); pH 7.34 (7.35-7.45)
[2024-11-16 13:25] LABS: Lactic Acid 5.8 mmol/L (0.7-2.0)
--- NOTE | 2024-11-16 13:48 | ITS.CL.CATH ---
[facility] - Catheterization
Cardiac Catheterization
Procedure Report:
CARDIAC CATHETERIZATION REPORT
Date of Procedure: 11/16/2024
Referring: Adrian Hussein M.D.
INDICATION: New cardiomyopathy, left bundle branch block, concern for ST elevation myocardial infarction.
PROCEDURE:
1. Left heart catheterization.
2. Coronary angiography.
3. Left ventriculography.
A total of 42 minutes of procedural/moderate sedation was utilized. An independent medical legal investigator was present to assist with and help manage the patient's level of consciousness and physiologic status.
ACCESS:
1. 6 [place] right radial artery using a modified Seldinger technique under ultrasound guidance. Ultrasound image obtained.
2. 6 [place] left common femoral artery using a modified Seldinger technique, using a micropuncture kit under ultrasound guidance. Ultrasound image obtained.
CATHETERS:
1. 5 [place] JR4.
2. 5 [place] JL 3.5.
3. 5 [place] angled pigtail.
HEMODYNAMIC DATA
Weight (kg): 124.0
AO (s/d/x, mmHg): 90/56/68
LV (s/x mmHg): 109/26
LEFT VENTRICULOGRAPHY: Performed in an AKERS projection. Normal to mildly dilated left ventricle. There is preserved systolic to hyper systolic function of the anterior and inferior base. There is akinesis with slight dyskinesis of the mid to
apical anterior and inferior ventricle, consistent with Takotsubo cardiomyopathy. Left ventricular ejection fraction estimated at 30%. There was no significant mitral valve regurgitation. There is no aortic valve insufficiency. The aortic root
and visualized ascending and descending aorta appear normal.
CORONARY ANGIOGRAPHY
Dominance: Right.
Left Main: Relatively short, bifurcating vessel. There is no coronary artery disease.
LAD: Large size vessel giving rise to 1 large diagonal. There is an eccentric, 50% lesion in the mid LAD after the origin of the large diagonal. There is a 70% lesion in the proximal margin of the diagonal.
Ramus: Congenitally absent
Circumflex: Large size, nondominant vessel giving rise to 1 large obtuse marginal. There is at least moderate tortuosity within the midportion of OM1.
RCA: Normal size, dominant vessel with no coronary artery disease.
INTERVENTION(S)
1. Furosemide 40 mg IV.
Closure Device: Vascular band for the right radial artery, 6 [place] Angio-Seal for the left common femoral vein.
Radiation (mGy): Currently unavailable.
DAP (cm2.Gy): Currently unavailable.
Fluoroscopy time (minutes): Currently unavailable.
CONCLUSIONS
1. Right dominant circulation with a 50%, eccentric lesion in the mid LAD after the origin of a large diagonal and a 70% lesion in the proximal margin of the large first diagonal.
2. Severely elevated filling pressures (LVEDP = 26 mmHg at 124.0 kg).
3. Akinesis of the mid and apical left ventricle consistent with Takotsubo cardiomyopathy, LV ejection fraction = 30%.
4. Due to a technical issue with the [employer] imaging system, radiation documentation is not currently available.
RECOMMENDATIONS:
1. Expectant management after cardiac catheterization via right radial and left common femoral approach.
2. Limited weight bearing on the right wrist for one week.
3. Supportive care for Takotsubo cardiomyopathy with vasopressors and inotropic therapy.
4. Guideline directed medical therapy when hemodynamics will tolerate.
5. The patient was given furosemide 40 mg IV in the [facility] to assist with diuresis and to place the patient on a more optical part of their lester Starling curve.
Copy to: Adrian Hussein M.D., Jennifer Gallardo M.D.
Ashok Marmolejo DO, FACC, FACP
[2024-11-16 13:49] LABS: Urine Albumin 1+ (Neg - Trace); Urine Bilirubin Negative (Negative); Urine Character Clear (Clear); Urine Color Yellow; Urine Glucose 1+ (Negative); Urine Ketone Negative (Negative); Urine Leukocyte Negative (Negative); Urine Nitrite Negative (Negative); Urine Occult Blood Negative (Negative); Urine Specific Gravity 1.015 (<1.030); Urine Urobilinogen Negative (Neg - 1+)
[2024-11-16 13:52] LABS: HCO3 15.1 mmol/L (21-28); O2 Therapy Room Air 100%
[2024-11-16 14:05] LABS: Triglycerides 200 mg/dl (10-149)
[2024-11-16 14:18] LABS: Urine Mucus Few
[2024-11-16 14:20] LABS: Urine Amorphous Seen
[2024-11-16 14:21] LABS: Urine Granular Cast >15 /LPF (0)
[2024-11-16 14:22] LABS: Urine Bacteria Moderate (Negative)
[2024-11-16 14:37] LABS: TSH Reflex To Free T4 3.02 uIU/ml (0.47-4.68)
[2024-11-16] MEDS: MAXIPIME 2000 MG IV (15:10)
[2024-11-16] MEDS: STERILE WATER FOR INJECTION 10 ML IV ×2 (15:12→19:08)
[2024-11-16] MEDS: VIBRAMYCIN 260 MG IV (15:15)
[2024-11-16] MEDS: TYLENOL/FEVERALL 650 MG RECTAL (16:00)
[2024-11-16 16:28] LABS: Glucose - Point of Care 397 mg/dl (70-99)
[2024-11-16] MEDS: NOVOLOG FLEXPEN-LOW RESISTANCE 5 UNITS SC (17:16)
[2024-11-16] MEDS: LOVENOX 40 MG SC (17:16)
--- NOTE | 2024-11-16 17:26 | PTCARENOTE ---
pt intubated and sedated. patient able occasionally briefly to open her eyes, tracking noted . Rectal temp 102.5 tylenol suppository adm earlier. Ice pack applied. BP via left upper arm 104/61 MAP 76 SR 79 with left BBB (Left BBB chronic); POX 96%
Restraints to b/l UE;
GI: BS present +BM/Incontinent
: Castillo inserted draining angeles clear about 100-150/hr urinal output
pedal pulses palatable; no edema.
RT femoral central line. left AC # 18
Levophed 18/67.5ml ; Fentanyl 100/10ml+Propofol 10/7.8; Amiodarone 0.5/16.5 all femoral line; NSS 125/hr via left AC ABT
vent AC: 20/500/+5/40% peak 26/VT 500/RR 20
oral care fole care done HOB elevated. Family at bedside updated
[2024-11-16] MEDS: SUBLIMAZE 50 MCG IV ×3 (17:56→22:58)
[2024-11-16] MEDS: NOVOLOG FLEXPEN-LOW RESISTANCE SC (18:08)
[2024-11-16 18:28] LABS: Lactic Acid 4.9 mmol/L (0.7-2.0)
[2024-11-16] MEDS: LEVOPHED 250 IV ×2 (19:07→22:16)
[2024-11-16] MEDS: MAXIPIME 1000 MG IV (19:08)
[2024-11-16] MEDS: OFIRMEV 100 IV (19:08)
[2024-11-16] MEDS: SUBLIMAZE 100 IV (19:08)
--- NOTE | 2024-11-16 20:30 | PTCARENOTE ---
received pt from [facility]. pt intubated/sedated. b/l wrist restraints. opens eyes to voice, tracks while assessing. pupils b/l 3mm sluggish. SR on monitor w/ BBB. levo gtt infusing, MAP goal >65. pt rectal temp >103, ice packs on and ofirmev given.
cooling blanket applied, goal temp 100.4. + radial/DP pulses. R radial and L groin cath sites C/D/I. #7.5 ETT, 23 at lip. AC 20/500/5/40%. OGT to LIS with minimal brown drainage. + bowel sounds. nicole for critical I/Os. prop/fent/amio/levo gtts
infusing through R fem CVC. CHG bath provided, nicole and oral care done. pt repositioned, extremities elevated. daughter updated via phone. care ongoing.
--- NOTE | 2024-11-16 21:57 | W.PN.UPDATE ---
Update Note
Progress Note Update
�
Procedure Note: Arterial Line�
� Left Wrist Arrow 20 (12/31)�
Diagnosis:pneumonia ��
IV Line Comments: Uneventful Procedure�
Deepak's test completed pre-procedure: Yes�
A-Line Comments: Sterile technique as per standard protocol, Ultrasound guided insertion�
Functioning A-line in situ: Yes�
A-line Insertion Start Time:��2114
A-line in at:�2129�
--- NOTE | 2024-11-16 22:32 | PHA.VAN.IN ---
Assessment
- Assessment
Renal Function: Appears similar to baseline
Maximum Temperature: 103.4
Minimum Temperature: 101.6
Concomitant Antimicrobials: Doxycycline, cefepime
AUC Dosing Plan
- Dosing Variables
Dosing Weight (kg): 120.3
Dosing CrCl (ml/min): 93
Vd coefficient (L/kg): 0.6
- Empiric Dosing
Initial / Loading Dose: 2000mg 11/16
Maintenance Regimen: 1250mg Q12H starting @0800 on 11/17
Estimated AUC (mcg*h/mL): 451
Estimated Peak (mcg*h/mL): 27.7
Estimated Trough (mcg/ml): 11.8
Estimated Half Life (H): 8.5
- Monitoring
No levels ordered at this time: Consider levels in next coming few days
Pharmacokinetics Vancomycin I
- -
Patient Age: 79
Patient Sex: Female
Vancomycin Day #: 1
Indication: Bacteremia
Requesting Provider: Georgette MCHUGH
Pertinent Antimicrobial Allergies:
NKDA
Height / Weight:
Height 5 ft 9 in
Actual Weight 120.3 kg
Pertinent Past Medical History: Morbidly Obese
- Vital Signs / Lab Results
Temp Pulse Resp BP Pulse Ox
101.6 F H 75 20 89/56 95
11/16/24 22:00 11/16/24 22:00 11/16/24 22:00 11/16/24 21:45 11/16/24 22:00
Lab Results - Hematology
11/16/24
06:42
WBC 26.0 H
Lab Results - Chemistry
11/16/24
06:42
BUN 31 H
Creatinine 0.7
Albumin 4.8
11/16/24 11/16/24 11/16/24
06:59 12:35 12:35
Lactic Acid 4.2 H* Cancelled 5.8 H*
11/16/24
17:37
Lactic Acid 4.9 H*
Lab Results - Urine
11/16/24
13:05
Urine Nitrite (Reflex) Negative
Leukocyte Esterase Rfl Negative
Urine WBC (Reflex) 6-10
Ur Squamous Epith Cells 11-15
Urine Bacteria (Reflex) Moderate A
Microbiology Results
11/16/24 07:10 Blood Culture - Final
Blood/Venous Positive culture in progress
11/16/24 07:07 Influenza Types A & B (BLAISE) - Final
Nasal Swab Negative for Influenza A & B, NAAT
Negative results must be combined with clinical observations
and patient history.
Nucleic Acid Amplification test (NAAT)performed on the
[employer] platform.
[2024-11-16] MEDS: VANCOCIN 540 MG IV (22:53)
[2024-11-16] MEDS: NOVOLOG FLEXPEN-LOW RESISTANCE 4 UNITS SC (23:09)
[2024-11-16 23:18] LABS: Glucose - Point of Care 341 mg/dl (70-99)
[2024-11-16 23:24] LABS: Lactic Acid 2.6 mmol/L (0.7-2.0)
--- NOTE | 2024-11-17 00:18 | PTCARENOTE ---
assessment unchanged. titrating levo gtt per protocol. prop/fent/amio continue. cath sites unchanged. cooling blanket currently on monitor mode, midnight temp 99.7. care ongoing.
[2024-11-17] MEDS: OFIRMEV 100 IV ×3 (02:06→19:44)
[2024-11-17] MEDS: MAXIPIME 1000 MG IV ×4 (02:07→19:34)
[2024-11-17] MEDS: DIPRIVAN 100 IV ×2 (02:07→06:39)
[2024-11-17] MEDS: STERILE WATER FOR INJECTION 10 ML IV ×4 (02:07→19:34)
[2024-11-17] MEDS: LEVOPHED 250 IV ×2 (02:07→08:10)
[2024-11-17] MEDS: SUBLIMAZE 100 IV (04:11)
[2024-11-17] MEDS: NSS 1000 IV (04:14)
[2024-11-17] MEDS: CORDARONE 518 MG IV (04:14)
[2024-11-17] MEDS: VIBRAMYCIN 260 MG IV ×2 (04:27→17:28)
[2024-11-17 04:33] LABS: B.E. -5.7 mmol/L; HCO3 17.5 mmol/L (21-28); Ionized Calcium 1.08 mMOL/L (1.15-1.33); O2 Saturation % 98.1 % (94-98); PCO2 27 mmHg (32-35); PO2 107 mmHg (83-108); Potassium 3.7 mMOL/L (3.5-5.1); Sodium 130 mMOL/L (136-145); pH 7.42 (7.35-7.45)
--- NOTE | 2024-11-17 04:34 | PTCARENOTE ---
Addendum entered by Lia Bush RN 11/17/24 04:35:
cooling blanket remains on monitor mode. current rectal temp 99.8.
Original Note:
AM labs sent. assessment unchanged. levo/amio/prop/fent gtts continue. care ongoing.
[2024-11-17 04:38] LABS: Hematocrit 33.8 % (37.0-47.0); Hemoglobin 11.6 g/dL (12.0-16.0); Mean Corp Hgb Conc. 34.3 g/dL (33.0-37.0); Mean Corpuscular Hgb 28.8 pg (27.0-31.0); Mean Corpuscular Volume 83.9 fL (81.0-99.0); Mean Platelet Volume 9.5 fL (7.4-10.4); Platelet Count 284 10^3/uL (130-400); Red Blood Cell Count 4.03 10^6/uL (4.20-5.40); Red Cell Dist. Width 13.7 % (11.5-14.5); White Blood Cell Count 20.4 10^3/uL (4.8-10.8)
[2024-11-17 05:11] LABS: ALT (SGPT) 111 U/L (0-35); AST (SGOT) 121 U/L (14-36); Albumin 3.1 g/dl (3.5-5.0); Alkaline Phosphatase 61 U/L (38-126); Blood Urea Nitrogen 33 mg/dl (7-17); Calcium 7.6 mg/dl (8.4-10.2); Carbon Dioxide 17 mmol/L (22-30); Chloride 101 mmol/L (98-107); Estimated Creatinine Clearance 73 ml/min; Glucose 283 mg/dl (70-99); HDL Cholesterol 30 mg/dl; LDL Cholesterol, Calculated 18 mg/dl; Magnesium 1.3 mg/dl (1.6-2.3); Sodium 131 mmol/L (135-145); Total Bilirubin 0.5 mg/dl (0.2-1.3); Total Cholesterol 90 mg/dl (50-199); Total Protein 5.4 g/dl (6.3-8.2); Triglyceride 210 mg/dl (10-149); Very Low Density Lipoprotein 42 mg/dl (0-30); eGFR > 60.00
[2024-11-17 05:28] VITALS: BMI 39.7
[2024-11-17] MEDS: MAGNESIUM SULFATE 50 IV (05:32)
[2024-11-17] MEDS: CALCIUM CHLORIDE 10% SYRINGE 60 MG IV (05:32)
[2024-11-17] MEDS: NOVOLOG FLEXPEN-LOW RESISTANCE 3 UNITS SC (05:33)
--- NOTE | 2024-11-17 07:20 | W.PN.CD ---
Today's Communication / Plan
-
Continue to wean Levophed. Significant reduction overnight. If pressor requirements do not continue to decrease then can add additional inotrope support with dobutamine or dopamine. Depending on patient's blood pressure
Continue aspirin.
As LFTs improve then and statin.
Patient had temp up to 103. Pneumonia noted on CT which appears to be the source. Single blood culture pending. However it should be noted that the patient has had lots of left lower extremity pain in the weeks preceding admission and does have
both the knee and hip replacements.
Impression / Plan
-
79-year-old woman with a history of chronic left bundle branch block hypertension, hypercholesterolemia and diabetes who presented with acute shortness of breath and respiratory failure requiring intubation in the emergency department. . Patient
with suspected NSVT prior to intubation and was given IV amiodarone patient then had heart rate in the 150s which may have represented SVT with underlying left bundle.Chest CT consistent with pneumonia. In the ER echocardiogram showed LV
dysfunction with apical, distal anterior, distal lateral distal inferior distal septal hypokinesis. Patient underwent cardiac catheterization. LAD 50% stenosis large first diagonal branch with 70% stenosis no significant obstructive disease
involving left circumflex or RCA. Ventriculogram with estimated ejection fraction of 30%. There is suspected that the patient's coronary artery disease did not fully explain the degree of LV dysfunction and wall motion abnormality and that the
appearance appeared more consistent with Takotsubo cardiomyopathy.. No coronary intervention was performed.
Hypotension/shock. Multiple factors may contribute suspected sepsis in patient with temp of 103 and pneumonia on chest x-ray. There may also be a cardiogenic component with Takotsubo cardiomyopathy.
-Continue to wean Levophed.-Pressor requirements have continued to decrease.
-Antibiotics as per primary team.
-Patient had a significant reduction and pressor requirements since yesterday. If we are limited in and weaning then we can consider additional inotropic support. Could use low-dose dobutamine but will need to watch for development of recurrent
arrhythmias.
.
VDRF. Patient being treated for pneumonia FiO2 40% management directed by pulmonary
Cardiomyopathy. Suspected Takotsubo cardiomyopathy ejection fraction of 30 to 35%
-Continue supportive treatment.
-GDMT currently limited by blood pressure
.
Coronary artery disease. Catheterization with large diagonal with 70% stenosis. and LAD with 50% stenosis peak troponin 11
-Continue aspirin
-Continue supportive treatment.
-
-Additional medical therapy for coronary artery disease when blood pressure will allow.
Acute respiratory failure. Exact etiology unclear. Would consider pulmonary embolism in this patient who has had issues with right lower extremity pain, limitations in ambulation and obesity. Will also need to consider other causes as well.
-Chest CT/PE protocol. Additional recommendations based on results.
-echo
.
Wide-complex tachycardia. Patient with underlying left bundle branch block patient with a heart rate of 150 with stable blood pressure. Likely aberrantly conducted SVT or possible atrial flutter. However not clearly flutter at this point to
warrant long-term anticoagulation. Will continue to monitor on telemetry.
-Continue IV amiodarone.
,
Right lower extremity pain. Has been persistent for weeks patient with previous knee replacement and hip replacement exact etiology unclear. With WBC count of 26 possibility of underlying infection a consideration.
-Additional evaluation as directed by primary team.
.
Diabetes management directed by primary team
-Hypertension. Stable. Monitor
Hypercholesterolemia. Continue statin
Physical Exam
Vital Signs/Labs
Vital Signs
Temp Pulse Resp BP Pulse Ox
100 F 68 20 89/56 97
11/17/24 05:28 11/17/24 06:00 11/17/24 06:00 11/16/24 21:45 11/17/24 06:00
11/16/24 11/17/24 11/18/24
06:59 06:59 06:59
Actual Weight 124 kg 122 kg
11/17/24 04:21
11/17/24 04:21
PT 13.7 Sec (11.4-14.6) 11/16/24 06:42
INR 1.02 11/16/24 06:42
APTT 26.2 Sec (23.4-35.0) 11/16/24 06:42
Magnesium 1.3 mg/dl (1.6-2.3) L 11/17/24 04:21
Triglycerides 210 mg/dl (10-149) H 11/17/24 04:21
LDL Cholesterol, Calc 18 mg/dl 11/17/24 04:21
VLDL Cholesterol, Calc 42 mg/dl (0-30) H 11/17/24 04:21
HDL Cholesterol 30 mg/dl 11/17/24 04:21
11/16/24
06:42
Lhg-W-Xokxspbvyag Pept 353
LAB Results
11/16/24 11/16/24 11/16/24
09:17 12:35 17:37
Troponin I 0.030 2.650 H* D 6.520 H* D
11/16/24 11/17/24
23:06 04:21
Troponin I 11.200 H* D 9.850 H*
Physical Exam
Constitutional: No acute distress ( Vented sedated)
Cardiovascular: Rhythm & rate is regular
Respiratory: Respiratory effort normal
GI: Soft
Neuro/Psych: Other
Data Reviewed
-
Date of Service: November 17, 2024
Medical Decision Making: Reviewed Test Results
Echo: Report Reviewed by me
Medical Tests (PFT, Pathology etc): Report Reviewed by me
Labs: Labs Reviewed by me
--- NOTE | 2024-11-17 07:53 | PTCARENOTE ---
Assumed Care at 0700; patient in bed sedated and intubated
Propofol at 15mcg, Fentanyl 100; Levophed at 10; NSS at 125;
Neuro : patient open eyes; pupils equal, sluggish, reactive to light +3 pt tracking. Restraints b/l ue soft
SR 70's chronic Left BBB; Left radial A/line BP 109/50 (MAP 69) Rectal temp 100.6; +2 edema non-pitting + pp
RR: Lungs diminished. ETT 7.
5/23 cm center lip; Vent AC 20/500/+5/40% Peak 20/VT 484/RR 20; ETT suction white thin small amount of secretion. oral care done
Abdomen soft round BS + LBM 11/16
Castillo draining [place] clear urine; will monitor output Castillo care done
skin : left leg scabbed areas with redness around open areas observed present on admission HOB elevated
[2024-11-17] MEDS: STERILE WATER FOR INJECTION IV (08:07)
[2024-11-17] MEDS: VANCOCIN 275 MG IV ×2 (08:08→18:25)
[2024-11-17] MEDS: ASPIR LOW (ENTERIC COATED) 81 MG PO (08:11)
--- NOTE | 2024-11-17 08:18 | W.PN.INTV ---
Today's Communication / Plan
Recommendations
Continue mechanical ventilation with daily SAT/SBT --> plan to extubate today
Repeat a set of surveillance blood cultures today given GAS bacteremia seen on admission blood cultures
Continue vasopressors with goal MAP >65
Lightly sedate with goal RASS 0 to -2 --> SAT this AM
Broad-spectrum antibiotics
Patient hyperglycemic, give dose of NPH now and then start Lantus tonight, continue ISS high resistance
Amiodarone gtt with goal HR <110
Cardiology recs appreciated
Repeat echo in near future to reassess EF given Takotsubo's cardiomyopathy
Tool Crib Supervisor services will continue to follow along
Assessment
-
Assessment: 79-year-old female with a past medical history of hypertension, hyperlipidemia, DM type II and history of recurrent UTI who presents with shortness of breath. Saturation at home while on room air was 82%. She has been having right leg
pain for about 3 months. Patient's shortness of breath worsened en route here to the hospital. In arrival to the ER she was short of breath with conversational dyspnea and hypoxic, and was intubated. Initial EKG showed a left bundle branch block.
After intubation she developed wide-complex tachycardia and placed onto IV amiodarone. She also was cardioverted which failed. Cardiology consulted with plans for left heart catheterization. Initially in the ER she was tachypneic to 25
breaths/min, saturating 96% on BiPAP, and pulse rate 79. Initial labs showed leukocytosis to 26, respiratory acidosis with pH 7.22, pCO2 56, glucose 304, lactate 4.2, and COVID-19 antigen negative. Flu A/B swab was negative and blood cultures were
collected. CXR showed bibasilar parenchymal opacities suspicious for atelectasis versus pneumonia, as well as acute interstitial edema with prominent vascular congestion. Subsequent CTA chest showed volume overload with bilateral pleural
effusions, bibasilar consolidative opacities, and upper lobe predominant interlobular septal thickening with scattered subtle groundglass opacities. Patient was brought to the [facility] and found to have a 50% eccentric lesion in the mid LAD as well
as a 70% lesion in the proximal margin of the large first diagonal branch. Also severely elevated LVEDP at 26 mmHg and akinesis of the mid and apical left ventricle consistent with Takotsubo's cardiomyopathy patient transferred to the ICU for
further care and pile driving supervisor services consulted for additional management/recommendations.
Chronic conditions [employer]: Hypertension, hyperlipidemia, osteoarthritis, left wrist fracture, DM type II, history of recurrent UTI, dizziness
Impression:
#Acute respiratory failure with hypoxia + hypercapnia in setting of acute decompensated heart failure + suspected pneumonia now on mechanical ventilation
#Shock due to cardiogenic + septic
#Multifocal consolidative opacities in the right upper lobe + lower lobes (seen on CTA chest from 11/16/2024) concerning for pneumonia
#Streptococcal bacteremia (BCx from 11/16/2024 growing Streptococcus pyogenes)
#Hx of LBBB s/p left heart cath showing a 50% eccentric lesion in the mid LAD as well as a 70% lesion in the proximal margin of the diagonal vessel, with severely elevated LVEDP at 26 mmHg and mid and apical LV akinesis consistent with Takotsubo's
cardiomyopathy
#Leukocytosis
#WCT due to NSVT vs A-fib with aberrancy now on amiodarone drip
#DM type II complicated by hyperglycemia
#Lactic acidosis � resolved as of today
#Elevated troponin (initial troponin negative at 0.03 and then rise to 2.65 after left heart cath -peaked at 11.2 on 11/16/2024)
#History of hypertension
#History of hyperlipidemia
#History of recurrent UTI
#Morbid obesity (BMI: 41)
Plan:
- Continue with mechanical ventilation with daily SAT/SBT if clinically appropriate --> hopefully I can extubate her today as she is tolerating her wean and following all commands, lifting head off pillow
- Titrate FiO2 + PEEP to maintain SpO2 >90-94%
- Maintain plateau pressure <30
- Oropharyngeal + deep ETT suctioning as needed
- Aspiration precautions by keeping HOB >30-45�
- prn nebulized bronchodilators - not currently bronchospastic
- Patient underwent left heart cath on 11/16/2024 and was diagnosed with Takotsubo's cardiomyopathy. She does have a 50% eccentric lesion in the mid LAD as well as a 70% lesion in the proximal margin of the first diagonal branch - no PCI performed
- Of note, prior EKG from 2018 also showed evidence of LBBB
- Unable to do GDMT currently due to hypotension and on pressors
- May benefit from ASA and high intensity statin given the LAD lesions --> defer to cardiology
- Given wide-complex tachycardia that was present after intubation, continue with amiodarone, currently at 0.5 mg/min
- Cardiology on board and recommendations appreciated
- Echo performed 11/16/2024 showing LVEF 30-35% with stage III diastolic dysfunction with increased filling pressures, normal RV size with mildly reduced function, with elevated RAP at 18 mmHg and PASP moderately elevated at 47 mmHg; there was
akinesis of the entire LV with some dyskinesis of the IV septum and apex --> hence diagnosis of Takotsubo's CM
- Her CTA chest showed bilateral dependent confluent parenchymal opacities with RUL consolidation, likely due to pneumonia although component of atelectasis from bilateral pleural effusions with pulmonary edema is more likely at least at the bases
- Patient has group A strep bacteremia from blood culture on 11/16/2024 --> continue antibiotics (currently on cefepime; added doxy)
- Follow-up BCx sensitivities from 11/16/2024
- Repeat 1 set of surveillance blood Cx today
- Follow up sputum Cx from ETT
- Negative urine antigens for legionella and Strep PNA
- Follow up urine Cx as well
- Follow-up MRSA swab and if negative can DC IV vancomycin
- Trend WBC and monitor fever curve
- She will need repeat imaging in 4-6 weeks to follow-up pneumonia resolution
- Maintain MAP>65
- Not currently requiring vasopressors
- Lactate is now 2 as of this morning, no need to continue trending
- Troponin peaked at 11.2 on 11/16/2024 --> no longer need to continue trending at this time
- Replete electrolytes with K>4, Mg>2
- Maintain euglycemia with goal BG 140-180 using ISS q6hr; start lantus and give dose of NPH now
- Trend H/H and transfuse if needed to keep Hb>7-8g/dL; keep plt>20k, unless there is concern for bleeding then keep plt>50k
- DVT ppx: LMWH
Patient is critically ill and requires ICU level of care.
Critical care statement: A total of 45 minutes of critical care time was provided for this patient today. This includes management of unstable vital signs, evaluation of the patient at bedside, reviewing the patient's pertinent medical records
including radiographs, microbiology, laboratory evaluations, and discussion with primary team, consultants, pharmacy, nutrition, physical therapy, case management, charge nurse, critical care nursing, and respiratory therapy.
Data:
CTA Chest 11/16/2024:
Respiratory motion degradation limits evaluation of pulmonary vasculature beyond the segmental level. As far as visualized, no pulmonary arterial filling defects are identified to suggest pulmonary embolus.
Pulmonary parenchymal process, as described, suspicious for combination of pneumonia and atelectasis. Scattered regions of subtle groundglass opacity are noted. Possible mild edema or nonspecific pneumonitis.
Subjective Dataa
Subjective Data
Date of Service:
Date of Service: November 17, 2024
Chief Complaint: Tool Crib Supervisor Follow Up
Subjective:
Patient seen this morning. Currently on pressure support wean on the ventilator, on 8/5cmH2O at 40% FiO2. PIP: 14 cmH2O, VTe 414 cc and breathing at 21 breaths/min. She is awake, following commands, and able to lift head up off the pillow.
at bedside and all questions were answered. Secretions are minimal. Currently on Levophed at 8mcg/min with BP 125/50, heart rate 84 and saturating 96%. Also on amiodarone at 0.5 mg/min.
Review of Systems
General: Other (Unable to obtain given patient is intubated)
Objective Data
Data Reviewed
Vital Signs / I&O / Oxygen:
Vital Signs
Temp Pulse Resp BP Pulse Ox
100.6 F H 68 20 89/56 95
11/17/24 08:15 11/17/24 06:00 11/17/24 06:00 11/16/24 21:45 11/17/24 08:40
Intake and Output
11/16/24 11/17/24 11/18/24
06:59 06:59 06:59
Intake Total 5144.2 / 5349.0 527.1 / 527.1
Output Total 1750 / 1850 150 / 150
Balance 3394.2 / 3499.0 377.1 / 377.1
SaO2 [A/C] 96
SaO2 95
Physical Exam
General: Respiratory Distress (negative), Comfortable, Chills (negative) and Sweats (negative)
HEENT: Normocephalic, Anicteric and Other (ETT in place)
Cardiovascular: S1-S2, Regular Rhythm and Peripheral Edema (Trace lower extremity edema bilaterally)
Respiratory: Wheeze (negative), Crackles (Bilateral), Rhonchi (negative), Accessory Resp Muscle Use (negative), Stridor (negative) and ET Tube (Mechanical breath sounds heard bilaterally)
GI: Soft, Non Distended, Non Tender and Normal Bowel Sounds
Neurology: Awake, Alert, Tremors (negative) and Other (Following all commands)
Skin: Warm, Dry, Cyanosis (negative) and Jaundice (negative)
Labs/Micro/Reports
Lab Data
11/17/24 04:21
Laboratory Results
11/16/24 11/17/24 11/17/24
13:01 00:37 04:21
pH 7.34 L Cancelled 7.42
pCO2 28 L Cancelled 27 L
pO2 195 H Cancelled 107
HCO3 15.1 L* Cancelled 17.5 L
O2 Delivery Level Room air 100% Cancelled
11/17/24
06:00
pH Cancelled
pCO2 Cancelled
pO2 Cancelled
HCO3 Cancelled
O2 Delivery Level Cancelled
Microbiology
11/16/24 16:38 Urine Legionella Urinary Antigen - Final
Negative for Legionella pneumophila Serogroup 1 antigen.
A negative result does not rule out the possiblity of
Legionella infection due to other serogroups or species of
Legionella. Clinical correlation is recommended.
11/16/24 16:38 Urine Streptococcus pneumoniae Antigen (M - Final
Negative for Streptococcus pneumoniae antigen.
A negative result does not exclude infection with
Streptococcus pneumoniae. Clinical correlation is
recommended.
11/16/24 07:10 Blood/Venous Blood Culture - Preliminary
Positive culture in progress
11/16/24 07:10 Blood/Venous Gram Stain - Preliminary
11/16/24 07:10 Blood/Venous Blood Culture - Preliminary
No Growth in 24 hours- Final report to follow
11/16/24 07:07 Nasal Swab Influenza Types A & B (BLAISE) - Final
Negative for Influenza A & B, NAAT
Negative results must be combined with clinical observations
and patient history.
Nucleic Acid Amplification test (NAAT)performed on the
[employer] platform.
--- NOTE | 2024-11-17 08:39 | W.PN.HOSP.TC ---
Today's Communication/Plan
-
replete lytes/ions and recheck
SBT/extubation as per pulm/director treasurer
stop NSS
wean pressors
cont ABX
consider ID consult
Assessment / Plan
Assessment / Plan
pt is a 79 year old female
drips: levophed, amio, propofol, fentanyl, NSS
home meds: not confirmed
Acute hypoxemic respiratory failure requiring intubation with shock physiology/lactic acidosis--with fevers and leukocytosis, septic shock now most likely--cultures pending--cont vanco/cefepime/doxy--CAT scan of the chest is negative for pulmonary
embolism but suspicion for PNA----continue pressor support with Levophed, wean to off--apprec director treasurer--Place [place] catheter for critical care I/Os
acute congestive heart failure with reduced EF--STAT echo done due to chronic LBBB--EF 30%--s/p cath with large diagonal 70% stenosis and LAD 50% with peak troponin 11--suspect Takusubo--cont amio for wide complex tachycardia--pro BNP was 353--NSS
given, will stop for now with EF 30%--apprec cards--will cont asa
Leukocytosis--possibly reactive?--although patient with lactic acidosis and CT chest with suspicion for pneumonia--will check blood cultures, urine culture, continue cefepime for now--lactates now WNL--pt with c/o RLE pain (weeks)(has knee and hip
replacement)--consider ortho eval if infection considered a possibility--consider ID consult
acute anemia--HGB 14 on admission, now 11.6--? dilutional--follow counts
hyponatremia/hypocalcemia/hypomagnesemia--replete all as needed
Type 2 diabetes mellitus--blood sugar elevated on arrival --will start with basal bolus sliding scale insulin coverage, increase to high dose--patient is to remain n.p.o.--check HGB A1C
Essential hypertension--all outpatient meds on hold given need for pressors
Hyperlipidemia--oral meds on hold--follow triglycerides while on propofol
DVT prophylaxis--Lovenox ordered
CODE STATUS--full code
Total Critical Care Time 33 minutes. I was immediately available to the patient and staff. I personally examined, reviewed labs, diagnostic images/reports, interpretations, treatment plans, discussed patient care with other providers and family
or caregivers (if patient is unable to make decisions), entered orders as appropriate and documented the medical record.
Anticipated Discharge: > 48 hours
Subjective/Interval History
-
Date of Service: November 17, 2024
pt intubated but awake--shakes head no to pain
Objective Data
-
Labs:
Laboratory Results
11/17/24 11/17/24 11/17/24
00:37 04:21 06:00
WBC 20.4 H
Hgb 11.6 L
Hct 33.8 L
Plt Count 284
HCO3 Cancelled 17.5 L Cancelled
Sodium 131 L
Potassium 4.0
Chloride 101
Carbon Dioxide 17 L
BUN 33 H
Creatinine 0.9
Glucose 283 H
Calcium 7.6 L D
Total Bilirubin 0.5
AST 121 H
ALT 111 H
Alkaline Phosphatase 61
Vital Signs:
max temp for 24 hours
11/16/24
19:25
Temp 103.4 F H
Vital Signs
Temp Pulse Resp BP Pulse Ox
100.6 F H 68 20 89/56 96
11/17/24 08:15 11/17/24 06:00 11/17/24 06:00 11/16/24 21:45 11/17/24 08:00
I&O
11/16/24 11/17/24 11/18/24
06:59 06:59 06:59
Intake Total 5144.2 / 5349.0 204.8 / 204.8
Output Total 1750 / 1850 100 / 100
Balance 3394.2 / 3499.0 104.8 / 104.8
Review of Systems
-
Unable to obtain full review of systems at this time due to: Patient Intubation
Physical Exam
-
General: Well Developed, Well Nourished, No Apparent Distress, Intubated and Morbidly Obese
HEENT: Normocephalic and Atraumatic
Respiratory: Clear to Auscultation; Negative Wheezes or Rhonchi
Cardiac: Regular Rhythm and S1/S2; Negative Murmur
GI: Soft, Nontender, Nondistended and Normal Bowel Sounds
Genito-urinary: Castillo
Musculoskeletal: No Clubbing and No Cyanosis; Negative No Edema (2+ LE edema bilaterally)
Neuro: Awake
Psych: Calm
[2024-11-17 09:09] LABS: Glycohemoglobin (HgbA1c) 7.7 % (4.0-5.6)
[2024-11-17 09:50] VITALS: BP_SYST 123
[2024-11-17 10:00] VITALS: BP_SYST 126
--- NOTE | 2024-11-17 10:42 | PHA.VAN.FU ---
Vancomycin Assessment / Plan
- Assessment
Renal Function: SCR Increasing (UOP STABLE, CONTINUE TO MONITOR SCR AND UOP)
WBC's are: Trending Down
In the past 24 hrs, patient has been: Febrile (TMAX 103.4 F)
Concomitant Antimicrobials: CEFEPIME, DOXYCYCLINE
- Dosing Plan
Continue: VANCO 1250MG Q12H
- Monitoring Plan
No level(s) ordered at this time: CONSIDER LEVEL IN NEXT FEW DAYS. CONTINUE TO MONITOR RENAL FUNCTION
- Follow Up
Pharmacy will continue to follow.
Vancomycin Follow UP
- -
Patient Age: 79
Patient Sex: Female
Vancomycin Day #: 2
Indication: Bacteremia
Requesting Provider: Georgette MCHUGH
Pertinent Antimicrobial Allergies:
NKDA
Height / Weight:
Height 5 ft 9 in
Actual Weight 122 kg
Pertinent Past Medical History: Morbidly Obese
- Vital Signs / Lab Results
Temp Pulse Resp BP Pulse Ox
100.6 F H 68 20 89/56 95
11/17/24 08:15 11/17/24 06:00 11/17/24 06:00 11/16/24 21:45 11/17/24 08:40
Lab Results - Hematology
11/16/24 11/17/24
06:42 04:21
WBC 26.0 H 20.4 H
Lab Results - Chemistry
11/16/24 11/17/24
06:42 04:21
BUN 31 H 33 H
Creatinine 0.7 0.9
Estimated Creat Clear 73
Albumin 4.8 3.1 L D
11/16/24 11/16/24 11/16/24
06:59 12:35 12:35
Lactic Acid 4.2 H* Cancelled 5.8 H*
11/16/24 11/16/24 11/16/24
17:37 19:37 23:06
Lactic Acid 4.9 H* Cancelled 2.6 H
11/17/24
04:21
Lactic Acid 2.0
Lab Results - Urine
11/16/24
13:05
Urine Nitrite (Reflex) Negative
Leukocyte Esterase Rfl Negative
Ur Squamous Epith Cells 11-15
Microbiology Results
11/16/24 07:10 Blood Culture - Preliminary
Blood/Venous Streptococcus pyogenes
Gram Stain - Preliminary
11/16/24 16:38 Legionella Urinary Antigen - Final
Urine Negative for Legionella pneumophila Serogroup 1 antigen.
A negative result does not rule out the possiblity of
Legionella infection due to other serogroups or species of
Legionella. Clinical correlation is recommended.
Streptococcus pneumoniae Antigen (M - Final
Negative for Streptococcus pneumoniae antigen.
A negative result does not exclude infection with
Streptococcus pneumoniae. Clinical correlation is
recommended.
11/16/24 07:10 Blood Culture - Preliminary
Blood/Venous No Growth in 24 hours- Final report to follow
11/16/24 07:07 Influenza Types A & B (BLAISE) - Final
Nasal Swab Negative for Influenza A & B, NAAT
Negative results must be combined with clinical observations
and patient history.
Nucleic Acid Amplification test (NAAT)performed on the
[employer] platform.
--- NOTE | 2024-11-17 10:57 | PTCARENOTE ---
Spontaneous trial
Propofol and Fentanyl off . Levophed adjusted to 8mcg
. RASS 0 (pt awake and alert ) Restraints to b/l UE. Spontaneous trial 8/5/40% . POX 96% tolerating without difficulties core temp 99.5 SR70's Left BBB
[2024-11-17 11:10] VITALS: BP_SYST 123
[2024-11-17 11:49] LABS: Glucose - Point of Care 224 mg/dl (70-99)
[2024-11-17] MEDS: NOVOLOG FLEXPEN-HIGH RESISTANCE 4 UNITS SC (12:04)
[2024-11-17] MEDS: NOVOLIN N vial SC (12:05)
[2024-11-17] MEDS: NOVOLIN N vial 0.1 UNITS SC (12:24)
[2024-11-17 12:41] LABS: B.E. -5.1 mmol/L; HCO3 19.9 mmol/L (21-28); PCO2 36 mmHg (32-35); PO2 106 mmHg (83-108); pH 7.35 (7.35-7.45)
--- NOTE | 2024-11-17 13:50 | PTCARENOTE ---
Extubated :
patient extubated at 13:30 to Nasal canula 6L . OJ tube removed. Restraints removed. AAO x3 Lungs diminished. BP via left A/line 122/59 SR 85 left BBB. POX 96%on 6L via nasal canula . Rectal temp 99.4 Levophed at 4mcg. Amiodarone per protocol at
0.5mcg Daughter and at bedside , updates provided
[2024-11-17 14:15] VITALS: BP 101/53
[2024-11-17] MEDS: OFIRMEV IV (14:16)
--- NOTE | 2024-11-17 15:10 | CM ---
Patient was extubated spoke with dgt Nica for IA.She is oriented lives with her Peña in a 2 story home with 1 steps to enter and 12 steps to bed/bathroom. She is independent in activates of daily living.She does drive .She used a cane
and walker as needed.
Had [facility] in past . [facility]
Pharmacy [facility]
PCP Dr Gallardo
PLAN Will need PT OT cristi when appropriate for dc planning
[2024-11-17 15:44] LABS: Blood Urea Nitrogen 32 mg/dl (7-17); Calcium 8.2 mg/dl (8.4-10.2); Carbon Dioxide 22 mmol/L (22-30); Chloride 101 mmol/L (98-107); Estimated Creatinine Clearance 66 ml/min; Glucose 214 mg/dl (70-99); Magnesium 1.8 mg/dl (1.6-2.3); Phosphorus 3.7 mg/dl (2.5-4.5); Potassium 4.2 mmol/L (3.5-5.1); Sodium 134 mmol/L (135-145); eGFR 58.02
[2024-11-17] MEDS: LOVENOX 40 MG SC (17:32)
[2024-11-17] MEDS: NOVOLOG FLEXPEN-HIGH RESISTANCE 2 UNITS SC (17:37)
--- NOTE | 2024-11-17 17:38 | PTCARENOTE ---
AAO x3 denies pain. patient does not appear to be in discomfort pt able to communicate her needs
SR 80's Left Taylor BP 113/36 MAP 66 RR 29 95%/3L via nasal canula.
Castillo draining cloudy dark angeles urine Total urinal output for this shift 500
Left and RT lower extremities scabbed wounds with bright redness surrounding area (wounds present on admission ) draining yellow drainage small amount.
left femoral line : dressing intact . Amio at 0.5mcg ; tolerating diet well Blood sugar 191/2 units per sliding scale
[2024-11-17 17:57] LABS: Glucose - Point of Care 191 mg/dl (70-99)
[2024-11-17] MEDS: XANAX 0.5 MG PO (20:48)
--- NOTE | 2024-11-17 20:53 | PTCARENOTE ---
rec'd patient. assessment as documented. pt SR on monitor, rectal temp 100.4, ofirmev given. on 5L NC, admits to SOB with exertion and sometimes at rest. amio gtt continues at maintenance dose. pt verbalizing anxiety, one time dose of xanax given,
see MAR. pt repositioned. wound consult ordered by ICU TERMINAL SUPERVISOR for excoriated leg ulcers. call leyva in reach.
[2024-11-17] MEDS: LANTUS 0.12 UNITS SC (22:03)
[2024-11-17 22:08] LABS: Glucose - Point of Care 187 mg/dl (70-99)
--- NOTE | 2024-11-18 | PTCARENOTE ---
assessment unchanged. remains on 5L NC. amio gtt continues. temp currently 99.4. call leyva in reach, care ongoing
[2024-11-18] MEDS: MAXIPIME 1000 MG IV ×3 (02:00→14:03)
[2024-11-18] MEDS: STERILE WATER FOR INJECTION 10 ML IV ×3 (02:00→14:03)
[2024-11-18] MEDS: OFIRMEV 100 IV ×2 (02:01→12:04)
[2024-11-18] MEDS: VIBRAMYCIN 260 MG IV (03:01)
[2024-11-18] MEDS: MORPHINE SULFATE 2 MG IV (03:01)
--- NOTE | 2024-11-18 03:14 | PTCARENOTE ---
pt rang call leyva and admits to breathing feeling more labored, increasing tachypnea, c/o chest feeling heavy and slightly painful. remains on 5L, O2 sat 97%. ICU JEWEL CORNER BRUSHING MACHINE OPERATOR made aware, 2mg morphine given. AM labs sent. call leyva in reach.
[2024-11-18 03:20] LABS: Hematocrit 30.7 % (37.0-47.0); Hemoglobin 10.2 g/dL (12.0-16.0); Mean Corp Hgb Conc. 33.2 g/dL (33.0-37.0); Mean Corpuscular Hgb 28.2 pg (27.0-31.0); Mean Corpuscular Volume 84.8 fL (81.0-99.0); Mean Platelet Volume 9.3 fL (7.4-10.4); Platelet Count 199 10^3/uL (130-400); Red Blood Cell Count 3.62 10^6/uL (4.20-5.40); Red Cell Dist. Width 14.1 % (11.5-14.5); White Blood Cell Count 20.4 10^3/uL (4.8-10.8)
[2024-11-18 03:32] LABS: ALT (SGPT) 111 U/L (0-35); AST (SGOT) 122 U/L (14-36); Albumin 2.8 g/dl (3.5-5.0); Alkaline Phosphatase 67 U/L (38-126); Blood Urea Nitrogen 33 mg/dl (7-17); Calcium 7.7 mg/dl (8.4-10.2); Carbon Dioxide 21 mmol/L (22-30); Chloride 103 mmol/L (98-107); Estimated Creatinine Clearance 73 ml/min; Glucose 157 mg/dl (70-99); Magnesium 1.8 mg/dl (1.6-2.3); Sodium 132 mmol/L (135-145); Total Bilirubin 0.4 mg/dl (0.2-1.3); Total Protein 5.1 g/dl (6.3-8.2); eGFR > 60.00
[2024-11-18] MEDS: VANCOCIN 275 MG IV (05:05)
[2024-11-18] MEDS: CORDARONE 518 MG IV (05:05)
[2024-11-18 05:11] VITALS: BMI 39.9
[2024-11-18] MEDS: NOVOLOG FLEXPEN-HIGH RESISTANCE 2 UNITS SC ×4 (07:25→21:14)
[2024-11-18] MEDS: ASPIR LOW (ENTERIC COATED) 81 MG PO (07:26)
[2024-11-18 07:34] LABS: Glucose - Point of Care 177 mg/dl (70-99)
[2024-11-18 07:35] VITALS: BP 91/54
--- NOTE | 2024-11-18 08:03 | PTCARENOTE ---
report received, assessments per work list.patient oriented, poor short term memory. flat affect. dyspneic with minimal exertion, lungs with crackles 1/4 up bilaterally. exertional wheezing. monitor nsr with bbb. right femoral arterial line patent,
amiodarone@0.5, left radial arterial line with good return and waveform. Castillo draining angeles yellow urine. assisted to bedpan, had small amount brown stool. call leyva in reach
[2024-11-18 08:14] VITALS: BP 155/81
--- NOTE | 2024-11-18 08:19 | W.PN.INTV ---
Today's Communication / Plan
Recommendations
Extubated yesterday however today she remains tachypneic albeit remains on 4 L/min and saturating 95%
Check lower extremity duplex to rule out DVT (mainly in right lower extremity given erythema)
Follow-up surveillance blood cultures from 11/17
Keep MAP >65
Broad-spectrum antibiotics - DC doxy and IV vanco; consult ID
Basal�bolus insulin
Start Xopenex + Atrovent
Give dose of Lasix due to tachypnea this morning and started on BiPAP
Cardiology recs appreciated
Repeat echo in near future to reassess EF given Takotsubo's cardiomyopathy
Will consider downgrade to IMU later today if she stabilizes. Once downgraded then pulmonary service will continue to follow along.
Assessment
-
Assessment: 79-year-old female with a past medical history of hypertension, hyperlipidemia, DM type II and history of recurrent UTI who presents with shortness of breath. Saturation at home while on room air was 82%. She has been having right leg
pain for about 3 months. Patient's shortness of breath worsened en route here to the hospital. In arrival to the ER she was short of breath with conversational dyspnea and hypoxic, and was intubated. Initial EKG showed a left bundle branch block.
After intubation she developed wide-complex tachycardia and placed onto IV amiodarone. She also was cardioverted which failed. Cardiology consulted with plans for left heart catheterization. Initially in the ER she was tachypneic to 25
breaths/min, saturating 96% on BiPAP, and pulse rate 79. Initial labs showed leukocytosis to 26, respiratory acidosis with pH 7.22, pCO2 56, glucose 304, lactate 4.2, and COVID-19 antigen negative. Flu A/B swab was negative and blood cultures were
collected. CXR showed bibasilar parenchymal opacities suspicious for atelectasis versus pneumonia, as well as acute interstitial edema with prominent vascular congestion. Subsequent CTA chest showed volume overload with bilateral pleural
effusions, bibasilar consolidative opacities, and upper lobe predominant interlobular septal thickening with scattered subtle groundglass opacities. Patient was brought to the [employer] Member and found to have a 50% eccentric lesion in the mid LAD as well
as a 70% lesion in the proximal margin of the large first diagonal branch. Also severely elevated LVEDP at 26 mmHg and akinesis of the mid and apical left ventricle consistent with Takotsubo's cardiomyopathy patient transferred to the ICU for
further care and strategic accounts manager services consulted for additional management/recommendations.
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
Impression:
#Acute respiratory failure with hypoxia + hypercapnia in setting of acute decompensated heart failure + suspected pneumonia requiring intubation (11/16/2024) --> extubated 11/17/2024
#Shock due to cardiogenic + septic - shock state resolved as of 11/17/2024
#Multifocal consolidative opacities in the right upper lobe + lower lobes (seen on CTA chest from 11/16/2024) concerning for pneumonia
#Streptococcal (GAS) bacteremia (BCx + SCx from 11/16/2024 growing Streptococcus pyogenes)
#Nonpurulent right lower extremity cellulitis
#Hx of LBBB s/p left heart cath showing a 50% eccentric lesion in the mid LAD as well as a 70% lesion in the proximal margin of the diagonal vessel, with severely elevated LVEDP at 26 mmHg and mid and apical LV akinesis consistent with Takotsubo's
cardiomyopathy
#Leukocytosis
#WCT due to NSVT vs A-fib with aberrancy now on amiodarone drip
#DM type II complicated by hyperglycemia
#Lactic acidosis � resolved as of 11/17/2024
#Elevated troponin (initial troponin negative at 0.03 and then rise to 2.65 after left heart cath - peaked at 11.2 on 11/16/2024)
#History of hypertension
#History of hyperlipidemia
#History of recurrent UTI
#Morbid obesity (BMI: 41)
Plan:
- Extubated on 11/17/2024 and now currently on nasal cannula, however tachypneic
- Titrate O2 flow rate to keep SpO2 >90-94%
- Aspiration precautions by keeping HOB >30-45�
- Start xopenex and atrovent TID
- prn nebulized bronchodilators - not currently bronchospastic
- Give dose of IV lasix 40mg now and place onto BiPAP given she is tachypneic this AM with concern for continued underling CHF
- Patient underwent left heart cath on 11/16/2024 and was diagnosed with Takotsubo's cardiomyopathy. She does have a 50% eccentric lesion in the mid LAD as well as a 70% lesion in the proximal margin of the first diagonal branch - no PCI performed
- Of note, prior EKG from 2018 also showed evidence of LBBB
- Defer GDMT to cardiology (toprol-XL started today)
- ASA started 11/17; unable to do high intensity statin given transaminitis; recommend to start statin once able to given her LAD lesions --> defer to cardiology
- Given wide-complex tachycardia that was present after intubation, continue with amiodarone, currently at 0.5 mg/min
- Cardiology on board and recommendations appreciated
- Echo performed 11/16/2024 showing LVEF 30-35% with stage III diastolic dysfunction with increased filling pressures, normal RV size with mildly reduced function, with elevated RAP at 18 mmHg and PASP moderately elevated at 47 mmHg; there was
akinesis of the entire LV with some dyskinesis of the IV septum and apex --> hence diagnosis of Takotsubo's CM
- Her CTA chest showed bilateral dependent confluent parenchymal opacities with RUL consolidation, likely due to pneumonia although component of atelectasis from bilateral pleural effusions with pulmonary edema is more likely at least at the bases
- She also has suspected RLE cellulitis --> check LE duplex to eval for DVT
- Patient has group A strep bacteremia from blood culture on 11/16/2024 --> continue antibiotics, but discontinue doxycycline and IV vancomycin given negative MRSA swab and nonpurulent RLE cellulitis
- Follow-up BCx sensitivities from 11/16/2024
- Repeat 1 set of surveillance blood Cx on 11/17
- Sputum Cx from ETT on 11/16/2024 also growing GAS
- Negative urine antigens for legionella and Strep PNA
- Follow up urine Cx as well
- MRSA swab negative --> IV vancomycin DC'd
- Trend WBC and monitor fever curve
- Consult ID due to Strep pyrogenes in SCx and BCx
- She will need repeat imaging in 4-6 weeks to follow-up pneumonia resolution
- Maintain MAP>65
- Not currently requiring vasopressors since 11/17
- Lactate is now 2 as of 11/17, no need to continue trending
- Troponin peaked at 11.2 on 11/16/2024 --> no longer need to continue trending at this time
- Replete electrolytes with K>4, Mg>2
- Maintain euglycemia with goal BG 140-180 using ISS AC (may need to change to q6hr if remains on BiPAP); continue lantus
- Trend H/H and transfuse if needed to keep Hb>7-8g/dL; keep plt>20k, unless there is concern for bleeding then keep plt>50k
- DVT ppx: LMWH
Will consider downgrade to IMU later today if she stabilizes. Once downgraded then pulmonary service will continue to follow along.
Data:
CTA Chest 11/16/2024:
Respiratory motion degradation limits evaluation of pulmonary vasculature beyond the segmental level. As far as visualized, no pulmonary arterial filling defects are identified to suggest pulmonary embolus.
Pulmonary parenchymal process, as described, suspicious for combination of pneumonia and atelectasis. Scattered regions of subtle groundglass opacity are noted. Possible mild edema or nonspecific pneumonitis.
Total time spent today was 76 minutes for this encounter. Time includes reviewing laboratory test/imaging results, reviewing pertinent medical records, obtaining and reviewing medical history, performing an appropriate exam, ordering medications,
tests and procedures. Time also includes documentation of this encounter, coordinating patient care and communicating with other healthcare professionals. Total time does not include separately billed tests performed on this date of service.
Subjective Dataa
Subjective Data
Date of Service:
Date of Service: November 18, 2024
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
Subjective:
Patient seen and evaluated this morning. Febrile last night to 100.4 �F. Extubated yesterday. Currently saturating 95% on 5 L/min. Amiodarone stopped this AM. Getting low #'s on IS (125cc). Patient says she feels short of breath and has a dry
cough. Current heart rate 81 and BP 144/84. She is awake, alert and answering questions. Patient's and daughter are both at bedside and all questions were answered.
Review of Systems
General: Other (Negative unless mentioned above)
Objective Data
Data Reviewed
Vital Signs / I&O / Oxygen:
Vital Signs
Temp Pulse Resp BP Pulse Ox
99.4 F 80 31 155/81 95
11/18/24 07:00 11/18/24 08:30 11/18/24 08:30 11/18/24 08:14 11/18/24 08:30
Intake and Output
11/17/24 11/18/24 11/19/24
06:59 06:59 06:59
Intake Total 5144.2 / 5349.0 3240.3 / 3257.0 153.4 / 153.4
Output Total 1750 / 1850 1035 / 1035 100 / 100
Balance 3394.2 / 3499.0 2205.3 / 2222.0 53.4 / 53.4
SaO2 [CPAP] 96
SaO2 [A/C] 96
SaO2 95
Nasal Cannula flow liters per 5
minute
Physical Exam
General: Respiratory Distress (negative), Comfortable, Chills (negative) and Sweats (negative)
HEENT: Normocephalic and Anicteric
Cardiovascular: S1-S2 and Peripheral Edema (Trace lower extremity edema bilaterally)
Respiratory: Wheeze (negative), Crackles (Bibasilar), Rhonchi (negative), Accessory Resp Muscle Use (negative) and Stridor (negative)
GI: Soft, Distended (Abdominal obesity), Non Tender and Normal Bowel Sounds
Neurology: AO x 3 and Tremors (negative)
Skin: Warm, Dry, Cyanosis (negative), Jaundice (negative) and Rash (Erythematous, warm and tender region of the right lower extremity)
Labs/Micro/Reports
Lab Data
11/18/24 03:08
11/18/24 03:08
Laboratory Results
11/17/24
12:32
pH 7.35
pCO2 36 H
pO2 106
HCO3 19.9 L
O2 Delivery Level
Microbiology
11/16/24 16:38 Nose MRSA Screen - Final
No Methicillin Resistant Staphylococcus aureus isolated.
11/16/24 13:05 Urine Urine Culture - Final
NO GROWTH
11/16/24 07:10 Blood/Venous Blood Culture - Preliminary
No Growth in 48 hours- Final report to follow
11/16/24 23:13 Endotracheal Gram Stain - Preliminary
11/16/24 07:10 Blood/Venous Blood Culture - Preliminary
Streptococcus pyogenes
11/16/24 07:10 Blood/Venous Gram Stain - Preliminary
11/16/24 16:38 Urine Legionella Urinary Antigen - Final
Negative for Legionella pneumophila Serogroup 1 antigen.
A negative result does not rule out the possiblity of
Legionella infection due to other serogroups or species of
Legionella. Clinical correlation is recommended.
11/16/24 16:38 Urine Streptococcus pneumoniae Antigen (M - Final
Negative for Streptococcus pneumoniae antigen.
A negative result does not exclude infection with
Streptococcus pneumoniae. Clinical correlation is
recommended.
11/16/24 07:07 Nasal Swab Influenza Types A & B (BLAISE) - Final
Negative for Influenza A & B, NAAT
Negative results must be combined with clinical observations
and patient history.
Nucleic Acid Amplification test (NAAT)performed on the
[employer] platform.
[2024-11-18] MEDS: DESENEX/MITRAZOL/ZEASORB 1 APPLIC TOPICAL ×2 (09:03→21:12)
--- NOTE | 2024-11-18 09:11 | W.PN.CD ---
Today's Communication / Plan
-
stop IV amiodarone
start Toprol XL. if BP will allow then start low dose valsartan ( will rob Entresto and can chnage to Entresto when BP will alllow)
Impression / Plan
-
79-year-old woman with a history of chronic left bundle branch block hypertension, hypercholesterolemia and diabetes who presented with acute shortness of breath and respiratory failure requiring intubation in the emergency department. . Patient
with suspected NSVT prior to intubation and was given IV amiodarone patient then had heart rate in the 150s which may have represented SVT with underlying left bundle.Chest CT consistent with pneumonia. In the ER echocardiogram showed LV
dysfunction with apical, distal anterior, distal lateral distal inferior distal septal hypokinesis. Patient underwent cardiac catheterization. LAD 50% stenosis large first diagonal branch with 70% stenosis no significant obstructive disease
involving left circumflex or RCA. Ventriculogram with estimated ejection fraction of 30%. There is suspected that the patient's coronary artery disease did not fully explain the degree of LV dysfunction and wall motion abnormality and that the
appearance appeared more consistent with Takotsubo cardiomyopathy.. No coronary intervention was performed.
Hypotension/shock. Multiple factors may contribute suspected sepsis in patient with temp of 103 and pneumonia on chest x-ray. There may also be a cardiogenic component with Takotsubo cardiomyopathy. Now improved. Off pressors. Continue to monitor
BP with addtion of GDMT for cardiomyopathy
-Continue to wean Levophed.-Pressor requirements have continued to decrease.
.
- -Antibiotics as per primary team.
-Patient had a significant reduction and pressor requirements since yesterday. If we are limited in and weaning then we can consider additional inotropic support. Could use low-dose dobutamine but will need to watch for development of recurrent
arrhythmias.
.
VDRF.
- PNA
- extubated 11/18/24 - now on 4 liters
- tx per pulmonary
- daily assessment to seeif needs diuretic
Cardiomyopathy. Suspected Takotsubo cardiomyopathy ejection fraction of 30 to 35%
-Continue supportive treatment.
-Now off pressors
- add low dose BB and valsartan
- rob e Entresto ( may cosndier ans BP improves )
.
Coronary artery disease. Catheterization with large diagonal with 70% stenosis. and LAD with 50% stenosis peak troponin 11
-Continue aspirin
-recommend statin
.
Wide-complex tachycardia. Patient with underlying left bundle branch block patient with a heart rate of 150 with stable blood pressure. Likely aberrantly conducted SVT or possible atrial flutter. However not clearly flutter at this point to
warrant long-term anticoagulation. Will continue to monitor on telemetry.
-stop IV amiodarone.
- initiate beta inderjit
,
Right lower extremity pain. Has been persistent for weeks patient with previous knee replacement and hip replacement exact etiology unclear. With WBC count of 26 possibility of underlying infection a consideration.
-Additional evaluation as directed by primary team.
.
Diabetes management directed by primary team
-Hypertension. Stable. Monitor
Hypercholesterolemia. Continue statin
Physical Exam
Vital Signs/Labs
Vital Signs
Temp Pulse Resp BP Pulse Ox
99.4 F 80 31 155/81 95
11/18/24 07:00 11/18/24 08:30 11/18/24 08:30 11/18/24 08:14 11/18/24 08:30
11/17/24 11/18/24 11/19/24
06:59 06:59 06:59
Actual Weight 122 kg 122.5 kg
11/18/24 03:08
11/18/24 03:08
PT 13.7 Sec (11.4-14.6) 11/16/24 06:42
INR 1.02 11/16/24 06:42
APTT 26.2 Sec (23.4-35.0) 11/16/24 06:42
Magnesium 1.8 mg/dl (1.6-2.3) 11/18/24 03:08
Triglycerides 210 mg/dl (10-149) H 11/17/24 04:21
LDL Cholesterol, Calc 18 mg/dl 11/17/24 04:21
VLDL Cholesterol, Calc 42 mg/dl (0-30) H 11/17/24 04:21
HDL Cholesterol 30 mg/dl 11/17/24 04:21
11/16/24
06:42
Fcl-A-Hiblgkpsqgb Pept 353
LAB Results
11/16/24 11/16/24 11/16/24
09:17 12:35 17:37
Troponin I 0.030 2.650 H* D 6.520 H* D
11/16/24 11/17/24
23:06 04:21
Troponin I 11.200 H* D 9.850 H*
Physical Exam
Constitutional: No acute distress
Cardiovascular: Rhythm & rate is regular
Respiratory: Wheeze Absent, Rhonchi Absent and Other (crackles at bases )
GI: Soft
Neuro/Psych: Alert
Data Reviewed
-
Date of Service: November 18, 2024
Medical Decision Making: Reviewed Test Results
Echo: Report Reviewed by me
Medical Tests (PFT, Pathology etc): Report Reviewed by me
Labs: Labs Reviewed by me
[2024-11-18 09:53] VITALS: BP 144/84
[2024-11-18] MEDS: TOPROL XL 12.5 MG PO ×2 (09:54→21:12)
[2024-11-18 10:45] LABS: B.E. -4.5 mmol/L; HCO3 20.2 mmol/L (21-28); O2 Saturation % 97.9 % (94-98); PCO2 35 mmHg (32-35); PO2 100 mmHg (83-108); pH 7.37 (7.35-7.45)
[2024-11-18] MEDS: LASIX 40 MG IV (12:04)
[2024-11-18 12:12] VITALS: PULSE 2; PULSE 80
--- NOTE | 2024-11-18 12:25 | PTCARENOTE ---
reassessed. patient with increased work of breathing, cxr taken, abg sent. lasix given, placed on Bipap by RT. family at bedside, updated. crackles unchanged.
[2024-11-18 12:45] LABS: Glucose - Point of Care 181 mg/dl (70-99)
--- NOTE | 2024-11-18 13:15 | W.PN.HOSP.TC ---
Addendum entered and electronically signed by Tara Blunt MD 11/18/24 16:59:
I saw and evaluated the patient independently. I reviewed the resident�s note and agree with findings and plan as documented by Dr. Valles.
GENERAL: well developed, well nourished, female in no apparent distress
HEENT: NC/AT
HEART: regular rate and rhythm, +S1, +S2
LUNGS : clear to auscultation bilaterally
ABDOM: soft, nontender, nondistended, + bowel sounds
EXT: no cyanosis, clubbing--2+ LE edema bilaterally with redness to Right lower leg with scabs/lesions on both legs
NEUROLOGIC: grossly intact
septic shock with Acute hypoxemic respiratory failure requiring intubation and lactic acidosis--blood and resp cultures positive for strep pyogenes (group A) --cont rocephin--apprec ID--CAT scan of the chest is negative for pulmonary embolism but
suspicion for PNA--off levophed--apprec international exchange coordinator--Place Castillo catheter for critical care I/Os, can d/c
acute congestive heart failure with reduced EF--STAT echo done due to chronic LBBB--EF 30%--s/p cath with large diagonal 70% stenosis and LAD 50% with peak troponin 11--suspect Takusubo--cont amio for wide complex tachycardia--pro BNP was
353---apprec cards--will cont asa--off IV amio, starting toprol XL
Leukocytosis--due to strep pneumonia/bacteremia--lactates now WNL--pt with c/o RLE pain (weeks)(has knee and hip replacement)--consider ortho eval if infection considered a possibility--apprec ID
acute anemia--HGB 14 on admission, now 10.2--? dilutional--follow counts
hyponatremia/hypocalcemia/hypomagnesemia--replete all as needed
Type 2 diabetes mellitus--blood sugar elevated on arrival --will start with basal bolus sliding scale insulin coverage, increase to high dose-- HGB A1C 7.7--restart diabetic diet and meds when able
Essential hypertension--all outpatient meds on hold given need for pressors
Hyperlipidemia--oral meds on hold
DVT prophylaxis--Lovenox ordered
CODE STATUS--full code
downgrade to tele
Original Note:
Today's Communication/Plan
-
ID consult
CXR for tachypnea
Lower extremity ultrasound for RLE erythema and swelling
Cardiology following --> dc amiodarone and start low dose metoprolol, consider valsartan if BP allows
Consider statin for echo findings
Continue to monitor vitals
Assessment / Plan
Assessment / Plan
79 year old female with:
#Acute hypoxemic respiratory failure requiring intubation with shock physiology/lactic acidosis--with fevers and leukocytosis, septic shock now most likely--culture streptococcus pyogenes--cont vanco/cefepime/doxy--CAT scan of the chest is negative
for pulmonary embolism but suspicion for PNA----now off Levophed--continue to monitor BPs--patient tachypneic--consider cxr
#Acute congestive heart failure with reduced EF--STAT echo done due to chronic LBBB--EF 30%--s/p cath with large diagonal 70% stenosis and LAD 50% with peak troponin 11--suspect Takusubo--cardiology following for wide complex tachycardia--amiodarone
dc'ed--low dose metoprolol started and valsartan if BP allows
#Leukocytosis--possibly reactive?--although patient with lactic acidosis and CT chest with suspicion for pneumonia--blood culture gram + cocci, urine culture neg, continue cefepime/vanco/doxy--lactates now WNL--pt with c/o RLE pain (weeks)(has
redness and swelling)--appreciate ID consult and consider lower extremity ultrasound
#Acute anemia--HGB 14 on admission, now 10.2--? site of blood draw a line--follow counts
#Hyponatremia--replete as needed
#Type 2 diabetes mellitus--on sliding scale insulin coverage--HGB A1C 7.7%
#Essential hypertension--all outpatient meds on hold given BPs
#Hyperlipidemia--consider statin
DVT prophylaxis--Lovenox ordered
CODE STATUS--full code
Anticipated Discharge: 24 - 48 hours
Subjective/Interval History
-
Date of Service: November 18, 2024
Objective Data
-
Labs:
Laboratory Results
11/18/24 11/18/24
03:08 10:34
WBC 20.4 H
Hgb 10.2 L
Hct 30.7 L
Plt Count 199 D
HCO3 20.2 L
Sodium 132 L
Potassium 4.0
Chloride 103
Carbon Dioxide 21 L
BUN 33 H
Creatinine 0.9
Glucose 157 H
Calcium 7.7 L
Total Bilirubin 0.4
AST 122 H
ALT 111 H
Alkaline Phosphatase 67
Vital Signs:
Vital Signs
Temp Pulse Resp BP Pulse Ox
100.9 F H 80 39 117/52 96
11/18/24 12:00 11/18/24 12:04 11/18/24 12:00 11/18/24 12:04 11/18/24 12:13
I&O
11/17/24 11/18/24 11/19/24
06:59 06:59 06:59
Intake Total 5144.2 / 5349.0 3240.3 / 3257.0 353.5 / 353.5
Output Total 1750 / 1850 1035 / 1035 265 / 265
Balance 3394.2 / 3499.0 2205.3 / 2222.0 88.5 / 88.5
Review of Systems
-
History Source: Patient, Family and Records
EENT: Reports No Symptoms Reported
Respiratory: Reports Trouble Breathing
Cardiac: Reports No Symptoms
Abdomen/GI: Reports No Symptoms
Breast: Reports No Symptoms
Genitourinary: Reports No Symptoms
Musculoskeletal: Reports Other (Right lower extremity pain radiating from upper to lower leg)
Neuro: Reports No Symptoms
Endocrine: Reports No Symptoms
Hematologic / Lymphatic: Reports No Symptoms
Allergy / Immunology: Reports No Symptoms
Physical Exam
-
General: Well Developed, Well Nourished, Respiratory Distress and Obese
HEENT: Normocephalic
Respiratory: Rales
Cardiac: Regular Rhythm and S1/S2
GI: Soft, Nontender and Nondistended
Genito-urinary: No Costovertebral Tender
Musculoskeletal: No Clubbing, No Cyanosis and Edema, Right Lower Extrem (Redness and tender to touch, no decreased range of motion)
Neuro: Awake, Alert and Oriented
Hematologic / Lymphatic: No Lymphadenopathy
Psych: Calm
--- NOTE | 2024-11-18 13:58 | WOUNDNOTE ---
L MEDIAL LOWER LEG
--- NOTE | 2024-11-18 13:58 | WOUNDNOTE ---
R POSTERIOR LOWER LEG
--- NOTE | 2024-11-18 14:00 | WOUNDNOTE ---
VALERIE RN note: Patient admitted with sepsis, pneumonia, hypoxia.
See H&P for complete history. Lives with .
PMH: NIDDM, HTN, b/l knee and L hip replacement,
Wound Location and type/assessment: Patient admitted with: dry scabs on both legs, suspect were diabetic vs venous ulcers. Nurse reports the ulcers were draining on admission. R leg with cellulitis, heels intact. Patient has mild MASD in skin
folds, sacrum intact, fungal powder in use. + palpable pedal pulses, nurse reports vascular ultrasound of legs on order.
Appetite: Fair
Pressure redistribution devices in place: On [place] air bed, turning schedule and pillows under calves in effect.
Plan: Moisturized legs with A&D ointment, will order mineral oil. Apply b/l hari wraps knee high if ultrasound negative for DVT. Nurse Cee aware, hari wraps placed in rm. Will confirm orders with hospitalist and updated nurse.
Updated care plan and will follow as needed.
Note to case management of equipment requested for discharge: TBD
Recommend follow up at wound care center upon discharge.
--- NOTE | 2024-11-18 14:24 | CON.ID ---
Consultation
-
Date/Time Consultation Requested: November 18, 2024 1023
Date/Time Consultation Performed: November 18, 2024 1425
Requesting Provider: Dr. Kobe Dickey
Performing Provider: Dr. Parris Palomo
Reason for Consultation: Group a strep bacteremia, pneumonia, cellulitis
Chief Complaint / Past History
Chief Complaint
Shortness of breath
History of Present Illness
79-year-old female with diabetes mellitus, hypertension presented to the hospital November 16 with respiratory distress. Patient reports that she has had left leg pruritic lesions for about 2 weeks. She then had difficulty ambulating due to
weakness. She develop worsening shortness of breath. No fever at home. Her O2 sat was 82%. EMS brought her to the ER November 16. She was febrile temperature 102 with maximum 103.4, white count 26, blood pressure in the 70s, lactic acid 5.8.
Patient was intubated and placed on pressors. Troponin peaked to 11.2. She underwent left heart catheterization which diagnosis of Takotsubo cardiomyopathy. Admission blood culture positive for Streptococcus pyogenes, sputum culture positive
Streptococcus pyogenes. Patient also noted to have erythematous right lower extremity. Peripheral ultrasound no DVT. Patient was intubated extubated. Patient states she is feeling a little bit better today. She denies recent sore throat. No
ill contacts.
Past History
Additional Past Medical History:
Diabetes mellitus
Hypertension
Dyslipidemia
Appendectomy
Bilateral TKR
Bilateral THR
Allergy History:
No Known Allergies Allergy (Verified 11/16/24 06:32)
Medications Reviewed: Yes
Current Antibiotics:
Cefepime d3
Social History
Tobacco: Non-Smoker
Alcohol: None
Drug: None
Personal:
Living: With Family
Family History
Family History: Not Pertinent
Review of Systems
Review of Systems
General: Change in Appetite
HEENT: Negative Sinus Problems, Headache or Pharyngitis
Respiratory: Dyspnea and Cough
Gasteroenterology: Negative Nausea, Vomiting or Diarrhea
Genital / Urological: Negative Dysuria or Flank Pain
Endocrine: Weakness
Musculoskeletal: Negative Arthralgias
All systems: All other systems were reviewed and were negative
Vital Signs
Temp Pulse Resp BP Pulse Ox
100.9 F H 75 30 117/52 94
11/18/24 12:00 11/18/24 13:00 11/18/24 13:00 11/18/24 12:04 11/18/24 14:23
Physical Exam
Physical Exam
Constitutional: Comfortable and Obese
Eyes: No Conjunctival Hemorrhage and Sclera Anicteric
Pharynx: Benign
Cardiovascular: Regular Rate and S1/S2
Pulmonary: Rales (bibase crackles)
Gastrointestinal: Soft, Non Tender, Non Distended and Normal Bowel Sounds
Genito-Urinary: Castillo and Clear Urine; Negative CVA Tenderness
Extremities: Edema (BLE) and Erythema (RLE patchy erythema calf and velarde to distal thigh. Few dry scabs on both LE. )
Neurological: AO x 3
Lab / Diagnostic Study Results
11/18/24 03:08
11/18/24 03:08
Abs Immat Gran (auto) 0.3 10^3/uL (0-0.05) H 11/16/24 06:42
Absolute Neuts (auto) 22.2 10^3/uL (1.4-6.5) H 11/16/24 06:42
Absolute Lymphs (auto) 2.4 10^3/uL (1.2-3.4) 11/16/24 06:42
Absolute Monos (auto) 0.8 10^3/uL (0.1-0.6) H 11/16/24 06:42
Absolute Basos (auto) 0.1 10^3/uL (0-0.2) 11/16/24 06:42
Immature Gran % 1.3 % (0-0.5) H 11/16/24 06:42
Neutrophils % 85.3 % (42.2-75.2) H 11/16/24 06:42
Lymphocytes % 9.2 % (20.5-51.1) L 11/16/24 06:42
Monocytes % 3.1 % (1.7-9.3) 11/16/24 06:42
Eosinophils % 0.6 % (0-6) 11/16/24 06:42
Basophils % 0.5 % (0-2) 11/16/24 06:42
PT 13.7 Sec (11.4-14.6) 11/16/24 06:42
INR 1.02 11/16/24 06:42
Lactic Acid 2.0 mmol/L (0.7-2.0) 11/17/24 04:21
Ur Squamous Epith Cells 11-15 /LPF (Few) 11/16/24 13:05
Microbiology Results
Micro:
11/16/24 23:13 Respiratory Culture - Preliminary
Endotracheal Streptococcus pyogenes
Gram Stain - Preliminary
11/16/24 16:38 MRSA Screen - Final
Nose No Methicillin Resistant Staphylococcus aureus isolated.
11/16/24 13:05 Urine Culture - Final
Urine NO GROWTH
11/16/24 07:10 Blood Culture - Preliminary
Blood/Venous No Growth in 48 hours- Final report to follow
11/17/24 15:17 Blood Culture - Pending
Blood/Venous
11/16/24 07:10 Blood Culture - Preliminary
Blood/Venous Streptococcus pyogenes
Gram Stain - Preliminary
11/16/24 16:38 Legionella Urinary Antigen - Final
Urine Negative for Legionella pneumophila Serogroup 1 antigen.
A negative result does not rule out the possiblity of
Legionella infection due to other serogroups or species of
Legionella. Clinical correlation is recommended.
Streptococcus pneumoniae Antigen (M - Final
Negative for Streptococcus pneumoniae antigen.
A negative result does not exclude infection with
Streptococcus pneumoniae. Clinical correlation is
recommended.
11/16/24 07:07 Influenza Types A & B (BLAISE) - Final
Nasal Swab Negative for Influenza A & B, NAAT
Negative results must be combined with clinical observations
and patient history.
Nucleic Acid Amplification test (NAAT)performed on the
[employer] platform.
11/18/24 CXR: Mild atelectasis in the lung bases. Low lung volumes. No large pleural effusion or pneumothorax. Stable cardiomediastinal silhouette.
11/16/[address]: Respiratory motion degradation limits evaluation of pulmonary vasculature beyond the segmental level. As far as visualized, no pulmonary arterial filling defects are identified to suggest pulmonary embolus. Pulmonary parenchymal
process, as described, suspicious for combination of pneumonia and atelectasis. Scattered regions of subtle groundglass opacity are noted. Possible mild edema or nonspecific pneumonitis.
Assessment / Plan
# Group A strep bacteremia
# Group A strep pneumonia
# RLE cellulitis (group A strep)
# s/p septic shock off pressor.
# Fever trending down
# Leukocytosis persists
# Takotsubo cardiomyopathy
- Narrow cefepime to ceftriaxone.
- No need for protein synthesis inhibitor at this time.
- Follow repeat blood cx.
- Trend temps/wbc.
Care Review
Plan reviewed with: Nurse (Elana)
--- NOTE | 2024-11-18 14:30 | PTCARENOTE ---
patient tolerated bipap for 2 hours. ultrasound negative for DVT, AZUL wraps applied per orders.
[2024-11-18] MEDS: ATROVENT NEBULES 0.5 MG INH ×2 (15:05→20:38)
[2024-11-18] MEDS: XOPENEX 1.25 MG INHALANT SOLUTION INH ×2 (15:05→20:38)
--- NOTE | 2024-11-18 15:22 | CM ---
Addendum entered by Rosemary Turk 11/18/24 16:56:
Patient does not have pharmacy listed or medical insurance coverage. CM called to patient and requested updated information via .
Addendum entered by Rosemary Turk 11/18/24 15:23:
Patient family did express intrest in [facility] when medically appropriate.
Original Note:
Patient seen at bedside with physicians and patient . CM updated him that patient physicians asked for costs of medications and patient expressed frustration that she was already on the medications. CM will call to confirm farxiga,
jardiance and entresto costs.
--- NOTE | 2024-11-18 15:38 | PN.CDI ---
CDI
- -
CDI:
Physician Documentation Request
Admit Date: 11/16/24 09:57
Dear Doctor Jovita
11/16 patient underwent left heart cath for new cardiomyopathy, left bundle branch block and concern for ST elevation myocardial infarction.
Conclusion states ' Right dominant circulation with a 50%, eccentric lesion in the mid LAD after the origin of a large diagonal and a 70% lesion in the proximal margin of the large first diagonal'
Laboratory Tests
11/16/24 11/16/24 11/16/24
09:17 12:35 17:37
Troponin I 0.030 2.650 H* D 6.520 H* D
11/16/24 11/17/24
23:06 04:21
Troponin I 11.200 H* D 9.850 H*
After study, what is the etiology of the elevated troponin:
Nonischemic myocardial injury
Type II IA demand ischemia
Other
Unable to determine
Use of terms such as suspected, likely, concern for, or probable (associated with a specific diagnosis that is being evaluated, monitored, or treated as if it exists) are acceptable and can be coded in the inpatient setting, when documented at the
time of discharge.
Thank you,
Nanette De La Rosa RN, BSN
CDI Specialist
tiger text
Please use your independent medical judgment in providing your response.
[2024-11-18 16:44] LABS: Glucose - Point of Care 185 mg/dl (70-99)
--- NOTE | 2024-11-18 16:49 | PTCARENOTE ---
patient reassessed. very flat affect, reluctant to participate in plan of care. lungs with basilar crackles, diminished left 1/3 up. frequent passage of flatus. incontinent soft stool. call leyva in reach.poor appetite.
[2024-11-18] MEDS: ROCEPHIN 2000 MG IV (17:24)
[2024-11-18] MEDS: LOVENOX 40 MG SC (17:24)
[2024-11-18] MEDS: STERILE WATER FOR INJECTION 20 ML IV (17:24)
--- NOTE | 2024-11-18 18:08 | PTCARENOTE ---
increased work of breathing after dinner, very poor oral intake, placed back on Bipap by RT
[2024-11-18 20:43] VITALS: PULSE 2; PULSE 83
[2024-11-18] MEDS: NEURONTIN 300 MG PO (21:13)
[2024-11-18] MEDS: LANTUS 0.12 UNITS SC (21:13)
[2024-11-18] MEDS: LIPITOR 20 MG PO (21:13)
[2024-11-18 21:22] LABS: Glucose - Point of Care 157 mg/dl (70-99)
--- NOTE | 2024-11-18 22:15 | PTCARENOTE ---
On assessment pt AAOx3, denies pain and SOB, temp 100.5, SR BBB, BIPAP 12/6 with 6L, 4L when off BIPAP, pills whole with bonnie ryan for critical Is&Os, B/LLE with AZUL wraps, heels elevated, R fem triple lumen, L radial Livier, call leyva in reach.
[2024-11-19] VITALS (21 sets, daily range): BP systolic 111–148; BP diastolic 52–83; PULSE 2–88; O2SAT 97; BMI 41.0
--- NOTE | 2024-11-19 | PTCARENOTE ---
pt repositioned q2h, incontinent of bowel, moderate soft BM, pt cleaned up, BIPAP on and functioning, call leyva in reach
[2024-11-19 05:20] LABS: Hematocrit 28.5 % (37.0-47.0); Hemoglobin 9.5 g/dL (12.0-16.0); Mean Corp Hgb Conc. 33.3 g/dL (33.0-37.0); Mean Corpuscular Hgb 28.3 pg (27.0-31.0); Mean Corpuscular Volume 84.8 fL (81.0-99.0); Mean Platelet Volume 9.9 fL (7.4-10.4); Platelet Count 196 10^3/uL (130-400); Red Blood Cell Count 3.36 10^6/uL (4.20-5.40); Red Cell Dist. Width 13.9 % (11.5-14.5); White Blood Cell Count 17.2 10^3/uL (4.8-10.8)
[2024-11-19 05:43] LABS: Blood Urea Nitrogen 36 mg/dl (7-17); Carbon Dioxide 21 mmol/L (22-30); Chloride 102 mmol/L (98-107); Estimated Creatinine Clearance 60 ml/min; Glucose 156 mg/dl (70-99); Sodium 133 mmol/L (135-145); Triglycerides 231 mg/dl (10-149); eGFR 51.75
[2024-11-19 05:48] LABS: Potassium 4.2 mmol/L (3.5-5.1)
--- NOTE | 2024-11-19 06:29 | PTCARENOTE ---
no changes from prior assessment, call leyva in reach, pt remains on BIPAP
[2024-11-19] MEDS: ASPIR LOW (ENTERIC COATED) 81 MG PO (07:39)
[2024-11-19] MEDS: JANUVIA 100 MG PO (07:39)
[2024-11-19] MEDS: NOVOLOG FLEXPEN-HIGH RESISTANCE 2 UNITS SC ×4 (07:39→20:12)
[2024-11-19] MEDS: TOPROL XL 12.5 MG PO (07:39)
[2024-11-19] MEDS: ZESTRIL 20 MG PO (07:39)
[2024-11-19] MEDS: ATROVENT NEBULES 0.5 MG INH ×3 (07:43→20:43)
[2024-11-19] MEDS: XOPENEX 1.25 MG INHALANT SOLUTION INH ×3 (07:43→20:44)
[2024-11-19] MEDS: HYDROPHOR 1 APPLIC TOPICAL (07:44)
[2024-11-19] MEDS: DESENEX/MITRAZOL/ZEASORB 1 APPLIC TOPICAL ×2 (07:44→20:13)
[2024-11-19 07:49] LABS: Glucose - Point of Care 171 mg/dl (70-99)
--- NOTE | 2024-11-19 07:56 | PTCARENOTE ---
pt received from previous rn- aox3, forgetful at times, able to make needs known. nsr with lbbb on monitor, resting comfortably on 4LNC at this time with no complaints. RR wnl. left radial miles zeroed and functioning. turned and repositioned. pt
educated about plan of care for shift- verbalized understanding. see assessment for further details. all safety precautions in place, call leyva within reach.
--- NOTE | 2024-11-19 08:40 | W.PN.PUL3 ---
Today's Communication / Plan
-
Continue prn BiPAP
ABx per ID
Aspiration precautions
Titrate down O2 while keeping SpO2 >90-94%
Check walking pulse oximetry prior to discharge
Continue Xopenex + Atrovent
Continue diuresis as tolerated
Repeat echo in near future to reassess EF given Takotsubo's cardiomyopathy diagnosed this admission
Outpatient evaluation to discuss sleep disordered breathing
negative
Patient is stable for downgrade to IMU. Pulmonary will continue to briefly follow along. Outpatient pulmonary office follow-up will be arranged for sleep apnea evaluation as well as PFTs and 6MWT.
Assessment
-
Assessment: 79-year-old female with a past medical history of hypertension, hyperlipidemia, DM type II and history of recurrent UTI who presents with shortness of breath. Saturation at home while on room air was 82%. She has been having right leg
pain for about 3 months. Patient's shortness of breath worsened en route here to the hospital. In arrival to the ER she was short of breath with conversational dyspnea and hypoxic, and was intubated. Initial EKG showed a left bundle branch block.
After intubation she developed wide-complex tachycardia and placed onto IV amiodarone. She also was cardioverted which failed. Cardiology consulted with plans for left heart catheterization. Initially in the ER she was tachypneic to 25
breaths/min, saturating 96% on BiPAP, and pulse rate 79. Initial labs showed leukocytosis to 26, respiratory acidosis with pH 7.22, pCO2 56, glucose 304, lactate 4.2, and COVID-19 antigen negative. Flu A/B swab was negative and blood cultures were
collected. CXR showed bibasilar parenchymal opacities suspicious for atelectasis versus pneumonia, as well as acute interstitial edema with prominent vascular congestion. Subsequent CTA chest showed volume overload with bilateral pleural
effusions, bibasilar consolidative opacities, and upper lobe predominant interlobular septal thickening with scattered subtle groundglass opacities. Patient was brought to the [facility] and found to have a 50% eccentric lesion in the mid LAD as well
as a 70% lesion in the proximal margin of the large first diagonal branch. Also severely elevated LVEDP at 26 mmHg and akinesis of the mid and apical left ventricle consistent with Takotsubo's cardiomyopathy patient transferred to the ICU for
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
Impression:
#Acute respiratory failure with hypoxia + hypercapnia in setting of acute decompensated heart failure + suspected pneumonia requiring intubation (11/16/2024) --> extubated 11/17/2024
#Shock due to cardiogenic + septic - shock state resolved as of 11/17/2024
#Multifocal consolidative opacities in the right upper lobe + lower lobes (seen on CTA chest from 11/16/2024) concerning for pneumonia
#Streptococcal (GAS) bacteremia (BCx + SCx from 11/16/2024 growing Streptococcus pyogenes)
#Nonpurulent right lower extremity cellulitis
#Hx of LBBB s/p left heart cath showing a 50% eccentric lesion in the mid LAD as well as a 70% lesion in the proximal margin of the diagonal vessel, with severely elevated LVEDP at 26 mmHg and mid and apical LV akinesis consistent with Takotsubo's
cardiomyopathy
#Leukocytosis
#WCT due to NSVT vs A-fib with aberrancy now on amiodarone drip
#DM type II complicated by hyperglycemia
#Lactic acidosis � resolved as of 11/17/2024
#Elevated troponin (initial troponin negative at 0.03 and then rise to 2.65 after left heart cath - peaked at 11.2 on 11/16/2024)
#History of hypertension
#History of hyperlipidemia
#History of recurrent UTI
#Morbid obesity (BMI: 41)
Plan:
- Extubated on 11/17/2024 and now currently on nasal cannula
- She was tachypneic during the day on 11/18/2024 requiring BiPAP and diuresis � tolerated BiPAP throughout the night on 11/18 - 11/19/2024 and she is much better today
- Currently saturating 95% on 5 L/min
- Continue to titrate O2 flow rate to keep SpO2 >90-94%
- Aspiration precautions by keeping HOB >30-45�
- Continue xopenex and atrovent TID
- prn nebulized bronchodilators - not currently bronchospastic
- Check walking pulse oximetry prior to discharge
- Patient underwent left heart cath on 11/16/2024 and was diagnosed with Takotsubo's cardiomyopathy. She does have a 50% eccentric lesion in the mid LAD as well as a 70% lesion in the proximal margin of the first diagonal branch - no PCI performed
- Of note, prior EKG from 2018 also showed evidence of LBBB
- Defer GDMT to cardiology (toprol-XL started today)
- ASA started 11/17; unable to do high intensity statin given transaminitis; recommend to start statin once able to given her LAD lesions --> defer to cardiology
- Given wide-complex tachycardia that was present after intubation, continue with amiodarone, currently at 0.5 mg/min
- Cardiology on board and recommendations appreciated
- Echo performed 11/16/2024 showing LVEF 30-35% with stage III diastolic dysfunction with increased filling pressures, normal RV size with mildly reduced function, with elevated RAP at 18 mmHg and PASP moderately elevated at 47 mmHg; there was
akinesis of the entire LV with some dyskinesis of the IV septum and apex --> hence diagnosis of Takotsubo's CM
- Her CTA chest showed bilateral dependent confluent parenchymal opacities with RUL consolidation, likely due to pneumonia although component of atelectasis from bilateral pleural effusions with pulmonary edema is more likely at least at the bases
- She also has suspected RLE cellulitis --> LE duplex negative for DVT
- Patient has group A strep bacteremia from blood culture on 11/16/2024 --> continue rocephin s/p cefepime (11/16-11/18/2024), doxycycline (11/16-11/18/2024) and IV vancomycin (11/16-11/18/2024) given negative MRSA swab and nonpurulent RLE cellulitis
- Follow-up BCx sensitivities from 11/16/2024
- Follow up set of surveillance blood Cx from 11/17
- Sputum Cx from ETT on 11/16/2024 also growing GAS
- Negative urine antigens for legionella and Strep PNA
- Follow up urine Cx (NGTD - 11/16/2024)
- MRSA swab negative --> IV vancomycin DC'd
- Trend WBC and monitor fever curve
- ID consulted due to Strep pyrogenes in SCx and BCx - defer Abx to them
- She will need repeat imaging in 4-6 weeks to follow-up pneumonia resolution
- Maintain MAP>65
- Not currently requiring vasopressors since 11/17
- Lactate was 2 as of 11/17, no need to continue trending
- Troponin peaked at 11.2 on 11/16/2024 --> no longer need to continue trending at this time
- Replete electrolytes with K>4, Mg>2
- Maintain euglycemia with goal BG 140-180 using ISS AC (may need to change to q6hr if remains on BiPAP); continue lantus
- Trend H/H and transfuse if needed to keep Hb>7-8g/dL; keep plt>20k, unless there is concern for bleeding then keep plt>50k
- DVT ppx: LMWH
Patient is stable for downgrade to IMU. Pulmonary will continue to briefly follow along. Outpatient pulmonary office follow-up will be arranged for sleep apnea evaluation as well as PFTs and 6 MWT.
Data:
CTA Chest 11/16/2024:
Respiratory motion degradation limits evaluation of pulmonary vasculature beyond the segmental level. As far as visualized, no pulmonary arterial filling defects are identified to suggest pulmonary embolus.
Pulmonary parenchymal process, as described, suspicious for combination of pneumonia and atelectasis. Scattered regions of subtle groundglass opacity are noted. Possible mild edema or nonspecific pneumonitis.
Total time spent today was 37 minutes for this encounter. Time includes reviewing laboratory test/imaging results, reviewing pertinent medical records, obtaining and reviewing medical history, performing an appropriate exam, ordering medications,
tests and procedures. Time also includes documentation of this encounter, coordinating patient care and communicating with other healthcare professionals. Total time does not include separately billed tests performed on this date of service.
Subjective Data
-
Date of Service:
Date of Service: November 19, 2024
Chief Complaint: Pulmonary Follow Up and Pneumonia Follow Up
Subjective:
Patient seen earlier today (late note entry). She is resting in bed in no acute distress. She says she feels much better today than she did yesterday. Currently saturating 95% on 5 L/min, BP 124/62 and heart rate 76. Placed onto BiPAP last night
on 12/5cmH2O bled with 5 L/min. She seemed to tolerate it for the remainder of the night. She currently denies chest pain, JOHN, nausea, vomiting, fevers or chills. She is eager to go home.
Review of Systems
General: Other (Negative unless mentioned above)
Objective Data
Data Reviewed
Vital Signs / I&O / Oxygen:
Vital Signs
Temp Pulse Resp BP Pulse Ox
98.1 F 75 32 132/69 91
11/19/24 15:54 11/19/24 16:00 11/19/24 16:00 11/19/24 16:00 11/19/24 16:00
Intake and Output
11/18/24 11/19/24 11/20/24
06:59 06:59 06:59
Intake Total 3240.3 / 3257.0 553.5 / 553.5
Output Total 1035 / 1035 1510 / 1535 575 / 575
Balance 2205.3 / 2222.0 -956.5 / -981.5 -575 / -575
SaO2 [CPAP] 96
SaO2 [A/C] 96
SaO2 91
Nasal Cannula flow liters per 4
minute
Physical Exam
General: Respiratory Distress (negative), Comfortable, Chills (negative) and Sweats (negative)
HEENT: Normocephalic and Anicteric
Cardiovascular: S1-S2 and Peripheral Edema (Trace lower extremity edema bilaterally)
Respiratory: Wheeze (negative), Crackles (Bibasilar), Rhonchi (negative) and Non-Labored Respirations
GI: Soft, Distended (Abdominal obesity), Non Tender and Normal Bowel Sounds
Neurology: AO x 3 and Tremors (negative)
Skin: Warm, Dry, Cyanosis (negative) and Jaundice (negative)
Labs/Micro/Reports
Lab Data
11/19/24 04:57
11/19/24 04:57
Microbiology
11/17/24 15:17 Blood/Venous Blood Culture - Preliminary
No Growth in 48 hours- Final report to follow
11/16/24 07:10 Blood/Venous Blood Culture - Preliminary
Streptococcus pyogenes
11/16/24 07:10 Blood/Venous Gram Stain - Preliminary
11/16/24 23:13 Endotracheal Respiratory Culture - Final
Streptococcus pyogenes
11/16/24 23:13 Endotracheal Gram Stain - Final
11/16/24 07:10 Blood/Venous Blood Culture - Preliminary
No Growth in 72 hours- Final report to follow
11/16/24 16:38 Nose MRSA Screen - Final
No Methicillin Resistant Staphylococcus aureus isolated.
11/16/24 13:05 Urine Urine Culture - Final
NO GROWTH
11/16/24 16:38 Urine Legionella Urinary Antigen - Final
Negative for Legionella pneumophila Serogroup 1 antigen.
A negative result does not rule out the possiblity of
Legionella infection due to other serogroups or species of
Legionella. Clinical correlation is recommended.
11/16/24 16:38 Urine Streptococcus pneumoniae Antigen (M - Final
Negative for Streptococcus pneumoniae antigen.
A negative result does not exclude infection with
Streptococcus pneumoniae. Clinical correlation is
recommended.
--- NOTE | 2024-11-19 09:51 | PTCARENOTE ---
plan of care discussed with mds- downgrade to imu, left radial miles removed, pressure held, dressing c/d/i. right fem central line removed by iv team, site c/d/i. assessment unchanged. pt at bedside and updated.
--- NOTE | 2024-11-19 10:03 | W.PN.ID1 ---
Date of Service
Date of Service: November 19, 2024
Today's Communication
Continue Ceftriaxone.
Assessment / Plan
# Group A strep bacteremia
# Group A strep pneumonia
# RLE cellulitis (group A strep)
# s/p septic shock off pressor.
# Fever trending down
# Leukocytosis trending down
# Takotsubo cardiomyopathy
- Continue ceftriaxone (d4 abx)
- repeat blood cx negative
- Trend temps/wbc.
- Follow clinically.
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
Diabetes mellitus
Hypertension
Dyslipidemia
Appendectomy
Bilateral TKR
Bilateral THR
Chief Complaint
-: Pneumonia, Cellulitis and Bacteremia
Subjective / Review of Systems
Feels better today. Not as weak. Less SOB.
Vital Signs / Physical Exam
Vital Signs
Vital Signs
Temp Pulse Resp BP Pulse Ox
99.7 F 79 25 124/61 95
11/19/24 07:53 11/19/24 09:00 11/19/24 09:00 11/18/24 21:12 11/19/24 09:00
Selected Entries
11/18/24
20:00
Temp 100.4 F H
Physical Exam
Constitutional: No Acute Distress and Comfortable
Eyes: Sclera Anicteric
Pulmonary: Coarse
Gastrointestinal: Soft, Non Tender and Non Distended
Genito-Urinary: Negative CVA Tenderness
Extremities: Edema and Erythema (RLE stable)
Neurological: AO x 3
Objective Data
Lab Data
Lab Results
11/19/24 04:57
11/19/24 04:57
PT 13.7 Sec (11.4-14.6) 11/16/24 06:42
INR 1.02 11/16/24 06:42
APTT 26.2 Sec (23.4-35.0) 11/16/24 06:42
Estimated Creat Clear 60 ml/min 11/19/24 04:57
Lactic Acid 2.0 mmol/L (0.7-2.0) 11/17/24 04:21
Total Bilirubin 0.4 mg/dl (0.2-1.3) 11/18/24 03:08
AST 122 U/L (14-36) H 11/18/24 03:08
ALT 111 U/L (0-35) H 11/18/24 03:08
Alkaline Phosphatase 67 U/L (38-126) 11/18/24 03:08
Most recent labs reviewed.
Micro Results:
11/16/24 23:13 Respiratory Culture - Final
Endotracheal Streptococcus pyogenes
Gram Stain - Final
11/16/24 07:10 Blood Culture - Preliminary
Blood/Venous No Growth in 72 hours- Final report to follow
11/17/24 15:17 Blood Culture - Preliminary
Blood/Venous No Growth in 24 hours- Final report to follow
11/16/24 16:38 MRSA Screen - Final
Nose No Methicillin Resistant Staphylococcus aureus isolated.
11/16/24 13:05 Urine Culture - Final
Urine NO GROWTH
11/16/24 07:10 Blood Culture - Preliminary
Blood/Venous Streptococcus pyogenes
Gram Stain - Preliminary
11/16/24 16:38 Legionella Urinary Antigen - Final
Urine Negative for Legionella pneumophila Serogroup 1 antigen.
A negative result does not rule out the possiblity of
Legionella infection due to other serogroups or species of
Legionella. Clinical correlation is recommended.
Streptococcus pneumoniae Antigen (M - Final
Negative for Streptococcus pneumoniae antigen.
A negative result does not exclude infection with
Streptococcus pneumoniae. Clinical correlation is
recommended.
11/16/24 07:07 Influenza Types A & B (BLAISE) - Final
Nasal Swab Negative for Influenza A & B, NAAT
Negative results must be combined with clinical observations
and patient history.
Nucleic Acid Amplification test (NAAT)performed on the
[employer] platform.
11/18/24 CXR: Mild atelectasis in the lung bases. Low lung volumes. No large pleural effusion or pneumothorax. Stable cardiomediastinal silhouette.
11/16/[address]: Respiratory motion degradation limits evaluation of pulmonary vasculature beyond the segmental level. As far as visualized, no pulmonary arterial filling defects are identified to suggest pulmonary embolus. Pulmonary parenchymal
process, as described, suspicious for combination of pneumonia and atelectasis. Scattered regions of subtle groundglass opacity are noted. Possible mild edema or nonspecific pneumonitis.
--- NOTE | 2024-11-19 10:24 | W.PN.CD ---
Today's Communication / Plan
-
Increase metoprolol to 25 mg twice daily
Switch lisinopril to valsartan with eventual transition to Entresto
Spironolactone tomorrow if creatinine is stable
Follow-up case management pricing of SGLT2 inhibitor
Impression / Plan
-
79-year-old woman with a history of chronic left bundle branch block, hypertension, hypercholesterolemia and diabetes who presented with acute shortness of breath and respiratory failure requiring intubation, found to have group A strep bacteremia
and pneumonia. In the ER echocardiogram showed LVEF 30-35% with apical, distal anterior, distal lateral distal inferior distal septal hypokinesis. Subsequent cardiac catheterization revealed 50% LAD and 70% D1 stenoses which were not felt to be
significant enough to explain her cardiomyopathy. No coronary intervention was performed. Presumed diagnosis is Takotsubo's cardiomyopathy. She has since been extubated.
Mixed shock, distributive and cardiogenic -- RESOLVED
-She is now off of vasopressors
-Being treated for group A strep bacteremia and pneumonia with ID following
-Continue antibiotics per primary team
-Treatment of heart failure as below
Heart failure with reduced ejection fraction (LVEF 30-35%), acute
-Etiology presumed to be Takotsubo's cardiomyopathy in the setting of bacteremia and pneumonia
-[facility] 11/16/2024: 50% mLAD, 70% D1; LVEDP 26 mmHg (124 kg)
-GDMT:
-Increase metoprolol to 25 mg twice daily
-Switch lisinopril to valsartan 40mg BID. If she tolerates this and Entresto is affordable, switch to Entresto prior to discharge
-Start spironolactone 25 mg daily tomorrow if creatinine is stable (1.1 today from 0.9 yesterday)
-Case management to rob SGLT2 inhibitors
-Appears euvolemic. Elevated LVEDP on cath but this may be due to poor LV function. Hold on diuresis for now.
-Consideration of ICD after at least 3 months of GDMT
Ventilator dependent respiratory failure, resolved
-Likely due to group A strep pneumonia
-Extubated 11/18/2024. Continuing to require nasal cannula, wean as able.
-Pulmonary following
Nonobstructive coronary artery disease
-Continue aspirin and atorvastatin
Wide-complex tachycardia, resolved
-Had WCT on admission in ER. Patient with underlying left bundle branch block patient with a heart rate of 150 and stable blood pressure. Likely aberrantly conducted SVT or possible atrial flutter. However not clearly flutter at this point to
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 Will continue to monitor on telemetry.
-IV amiodarone stopped
-continue beta inderjit
Subjective: She feels improved today. Still confused about what happened during hospitalization. No alarms on telemetry.
Physical Exam
Vital Signs/Labs
Vital Signs
Temp Pulse Resp BP Pulse Ox
99.7 F 79 25 124/61 95
11/19/24 07:53 11/19/24 09:00 11/19/24 09:00 11/18/24 21:12 11/19/24 09:00
11/18/24 11/19/24 11/20/24
06:59 06:59 06:59
Actual Weight 122.5 kg 125.7 kg
11/19/24 04:57
11/19/24 04:57
PT 13.7 Sec (11.4-14.6) 11/16/24 06:42
INR 1.02 11/16/24 06:42
APTT 26.2 Sec (23.4-35.0) 11/16/24 06:42
Magnesium 2.0 mg/dl (1.6-2.3) 11/19/24 04:57
Triglycerides 231 mg/dl (10-149) H 11/19/24 04:57
LDL Cholesterol, Calc 18 mg/dl 11/17/24 04:21
VLDL Cholesterol, Calc 42 mg/dl (0-30) H 11/17/24 04:21
HDL Cholesterol 30 mg/dl 11/17/24 04:21
11/16/24
06:42
[id number] Pept 353
LAB Results
11/16/24 11/16/24 11/16/24
12:35 17:37 23:06
Troponin I 2.650 H* D 6.520 H* D 11.200 H* D
11/17/24
04:21
Troponin I 9.850 H*
Physical Exam
Constitutional: No acute distress and Comfortable
Cardiovascular: Rhythm & rate is regular, Pedal edema is absent, S1S2 is normal and Murmur/rub/gallop absent
Respiratory: Respiratory effort normal and Crackles Present (R base)
Neuro/Psych: AO x 3
Data Reviewed
-
Date of Service: November 19, 2024
Medical Decision Making: Reviewed Test Results, Independent Historian Assessment, Test Interpretation and Review of Case with other Provider
EKG: Tracing Personally Visualized and interpreted
Echo: Report Reviewed by me
X-Ray/CT/US/MRI/NUC/PET: Image Personally Visualized and interpreted
Labs: Labs Reviewed by me
[2024-11-19 11:45] LABS: Glucose - Point of Care 151 mg/dl (70-99)
--- NOTE | 2024-11-19 12:12 | W.PN.HOSP.TC ---
Addendum entered and electronically signed by Mray Donahue MD 11/19/24 14:06:
I saw and evaluated the patient. I reviewed the resident�s note and agree with findings and plan as documented in the resident�s note.
A/P:
# Septic shock with Acute hypoxic respiratory failure
# Lactic acidosis, resolved
# strep pneumonia with Bacteremia
off levophed
Pt extubated 11/17/2024, Cont O2 support with 4L NC and wean as tolerated
blood and resp cultures positive for strep pyogenes (group A Strep)
Cont Rocephin
apprec ID
CAT scan of the chest is negative for pulmonary embolism but suspicion for PNA
# acute systolic congestive heart failure
# Suspected Takotsubo cardiomyopathy with ejection fraction of 30 to 35%
troponin peaked at 11
s/p cath with large diagonal 70% stenosis and LAD 50%
Pt was started with amiodarone, now off
Cont newly added Toprol XL 25 mg BID
# Increase in SCr
Cr 1.1 from baseline 0.9
Monitor
# acute anemia, likely dilutional
follow counts
# hyponatremia
# hypocalcemia
# hypomagnesemia, resolved
# Type 2 diabetes mellitus
HGB A1C 7.7%
started Lantus 12 units HS
cont ISS
restart diabetic diet and meds when able
# Essential hypertension
BP stable on Toprol and Valsartan
# Hyperlipidemia
oral meds on hold
DVT prophylaxis--Lovenox SQ
CODE STATUS--full code
Original Note:
Today's Communication/Plan
-
Continue Ceftriaxone
Continue lopressor and add valsartan
Continue to monitor BP and vitals
Downgrade to IMU
PT/OT consult
remove nicole catheter
Assessment / Plan
Assessment / Plan
79 year old female with:
#Acute hypoxemic respiratory failure requiring intubation with shock physiology/lactic acidosis--with fevers and leukocytosis, septic shock now most likely--CAT scan of the chest is negative for pulmonary embolism but suspicion for PNA--culture
streptococcus pyogenes--likely 2/2 right leg cellulitis vs pneumonia -- ID following -- switched cefepime to ceftriaxone -- CAT scan of the chest is negative for pulmonary embolism but suspicion for PNA-- off Levophed --continue to monitor
BPs--patient tachypneic, has been on and off on BiPAP-- cxr showed mild atelectasis, will need repeat cxr in 4 weeks -- repeat BCx no growth in 24 hrs - will downgrade to IMU
#Acute congestive heart failure with reduced EF--STAT echo done due to chronic LBBB--EF 30%--s/p cath with large diagonal 70% stenosis and LAD 50% with peak troponin 11--suspect Takusubo--cardiology following for wide complex tachycardia--amiodarone
dc'ed--cont low dose metoprolol and start valsartan today--monitor BPs
#Leukocytosis--likely 2/2 infection, patient with lactic acidosis and CT chest with suspicion for pneumonia--blood culture gram + cocci, urine culture neg, switched to ceftriaxone--lactates now WNL--pt with c/o RLE pain (weeks)(has redness and
swelling)--ultrasound negative for lower extremity venous thrombus--pt has wound care
#Acute anemia--HGB 14 on admission, now 9.5--? site of blood draw a line--follow counts
#CAROLYN--mildly elevated Cr of 1.1--likely secondary to diuretics use--not on lasix now--will continue to monitor Cr
#Hyponatremia--replete as needed
#Type 2 diabetes mellitus--on sliding scale insulin coverage--HGB A1C 7.7%
#Essential hypertension--all outpatient meds on hold given BPs--cardiology following--now on valsartan
#Hyperlipidemia--continue statin
DVT prophylaxis--Lovenox ordered
CODE STATUS--full code
Anticipated Discharge: 24 - 48 hours
Subjective/Interval History
-
Date of Service: November 19, 2024
Objective Data
-
Labs:
Laboratory Results
11/19/24
04:57
WBC 17.2 H
Hgb 9.5 L
Hct 28.5 L
Plt Count 196
Sodium 133 L
Potassium 4.2
Chloride 102
Carbon Dioxide 21 L
BUN 36 H
Creatinine 1.1 H
Glucose 156 H
Calcium 8.0 L
Vital Signs:
Vital Signs
Temp Pulse Resp BP Pulse Ox
99.7 F 74 29 124/62 97
11/19/24 07:53 11/19/24 11:00 11/19/24 11:00 11/19/24 11:00 11/19/24 11:00
I&O
11/18/24 11/19/24 11/20/24
06:59 06:59 06:59
Intake Total 3240.3 / 3257.0 553.5 / 553.5
Output Total 1035 / 1035 1510 / 1535 275 / 275
Balance 2205.3 / 2222.0 -956.5 / -981.5 -275 / -275
Review of Systems
-
History Source: Patient
Constitutional: Reports No Symptoms
EENT: Reports No Symptoms Reported
Respiratory: Reports Trouble Breathing (Significantly improved)
Cardiac: Reports No Symptoms
Abdomen/GI: Reports No Symptoms
Breast: Reports No Symptoms
Genitourinary: Reports No Symptoms
Musculoskeletal: Reports No Symptoms
Skin: Reports No Symptoms
Neuro: Reports No Symptoms
Endocrine: Reports No Symptoms
Hematologic / Lymphatic: Reports No Symptoms
Allergy / Immunology: Reports No Symptoms
Physical Exam
-
General: Well Developed, Well Nourished, Comfortable and Morbidly Obese
HEENT: Normocephalic
Respiratory: Decreased Breath Sounds (base of lungs bilaterally)
Cardiac: S1/S2
GI: Soft, Nontender, Nondistended and Normal Bowel Sounds
Genito-urinary: No Costovertebral Tender
Musculoskeletal: No Clubbing, No Cyanosis and Other (AZUL wrap on bilateral lower extremeties)
Skin: Warm
Neuro: Awake, Alert and Oriented
Hematologic / Lymphatic: No Lymphadenopathy
Psych: Calm
--- NOTE | 2024-11-19 15:05 | CM ---
CM following re: discharge planning.
Reviewed pt's chart, met with pt and pt's at bedside. Pt requires 4L NC of O2 and a plan is to continue weaning it off.
PT and OT evaluations pending.
Both pt and her stated they will go with MD team recommendations regarding next level of care.
D/C plan: Awaiting PT/OT evaluations and recommendations. Pt's made it very clear he would prefer discussion regarding next level of care after PT/OT evaluations.
CM will follow with discharge plan updates as hospitalization progresses.
--- NOTE | 2024-11-19 16:25 | PTCARENOTE ---
pt oob to chair with pt/ot, on room air, no complaints at this time. assessment unchanged.
[2024-11-19 16:27] LABS: Glucose - Point of Care 153 mg/dl (70-99)
[2024-11-19] MEDS: LOVENOX 40 MG SC (17:38)
[2024-11-19] MEDS: ROCEPHIN 2000 MG IV (17:38)
[2024-11-19] MEDS: STERILE WATER FOR INJECTION 20 ML IV (17:38)
[2024-11-19] MEDS: DIOVAN 40 MG PO (20:07)
[2024-11-19] MEDS: TOPROL XL 25 MG PO (20:07)
[2024-11-19] MEDS: LIPITOR 20 MG PO (20:07)
[2024-11-19] MEDS: NEURONTIN 300 MG PO (20:07)
[2024-11-19] MEDS: LANTUS 0.12 UNITS SC (20:11)
[2024-11-19 20:22] LABS: Glucose - Point of Care 157 mg/dl (70-99)
--- NOTE | 2024-11-19 21:50 | PTCARENOTE ---
On assessment pt AAOx3, denies pain and SOB at this time, afebrile, SR BBB, 2L NC 98%, pills whole with thins, purwick in place, B/LLE with AZUL wraps, heels elevated, call leyva in reach.
[2024-11-20] VITALS (26 sets, daily range): BP systolic 102–134; BP diastolic 53–75; PULSE 77–81; O2SAT 96; BMI 40.6
[2024-11-20 05:36] LABS: % Basophils 0.4 % (0-2); % Immature Granulocytes 1.2 % (0-0.5); % Lymphocytes 8.5 % (20.5-51.1); % Monocytes 6.2 % (1.7-9.3); % Neutrophils 80.7 % (42.2-75.2); Absolute Basophils 0.1 10^3/uL (0-0.2); Absolute Eosinophils 0.4 10^3/uL (0-0.7); Absolute Immature Granulocytes 0.2 10^3/uL (0-0.05); Absolute Lymphocytes 1.2 10^3/uL (1.2-3.4); Absolute Monocytes 0.8 10^3/uL (0.1-0.6); Absolute Neutrophils 10.8 10^3/uL (1.4-6.5); Hematocrit 29.9 % (37.0-47.0); Hemoglobin 9.9 g/dL (12.0-16.0); Mean Corp Hgb Conc. 33.1 g/dL (33.0-37.0); Mean Corpuscular Hgb 28.4 pg (27.0-31.0); Mean Corpuscular Volume 85.7 fL (81.0-99.0); Mean Platelet Volume 9.6 fL (7.4-10.4); Nucleated Red Blood Cells % 0 %; Platelet Count 221 10^3/uL (130-400); Red Blood Cell Count 3.49 10^6/uL (4.20-5.40); Red Cell Dist. Width 14.1 % (11.5-14.5); White Blood Cell Count 13.5 10^3/uL (4.8-10.8)
--- NOTE | 2024-11-20 05:36 | PTCARENOTE ---
pt bladder scanned at 0430 for 402cc, pt encouraged to void with purwick. 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
[2024-11-20 06:06] LABS: Blood Urea Nitrogen 42 mg/dl (7-17); Calcium 8.3 mg/dl (8.4-10.2); Carbon Dioxide 21 mmol/L (22-30); Chloride 105 mmol/L (98-107); Estimated Creatinine Clearance 67 ml/min; Glucose 127 mg/dl (70-99); Magnesium 2.4 mg/dl (1.6-2.3); Potassium 4.1 mmol/L (3.5-5.1); Sodium 136 mmol/L (135-145); eGFR 58.02
[2024-11-20 07:11] LABS: Glucose - Point of Care 126 mg/dl (70-99)
[2024-11-20] MEDS: ATROVENT NEBULES 0.5 MG INH ×3 (07:38→19:37)
[2024-11-20] MEDS: XOPENEX 1.25 MG INHALANT SOLUTION INH ×3 (07:38→19:37)
[2024-11-20] MEDS: NOVOLOG FLEXPEN-HIGH RESISTANCE 1 UNITS SC (07:40)
--- NOTE | 2024-11-20 07:41 | W.PN.HOSP.TC ---
Addendum entered and electronically signed by Mary Donahue MD 11/20/24 15:23:
I saw and evaluated the patient. I reviewed the resident�s note and agree with findings and plan as documented in the resident�s note.
A/P:
# Septic shock with Acute hypoxic respiratory failure
# Strep pneumonia with Strep bacteremia
# RLE cellulitis (group A strep)
# Lactic acidosis, resolved
off levophed
Pt extubated 11/17/2024, cont O2 support with 4L NC and wean as tolerated
blood and resp cultures positive for strep pyogenes (group A Strep)
Cont Rocephin
apprec ID
CAT scan of the chest is negative for pulmonary embolism but suspicion for PNA
# acute systolic congestive heart failure
# Suspected Takotsubo cardiomyopathy with ejection fraction of 30 to 35%
troponin peaked at 11
s/p cath with large diagonal 70% stenosis and LAD 50%
Pt was started with amiodarone, now off
Cont newly added Toprol XL 25 mg BID, valsartan 40 mg twice daily (in place of prior to admission lisinopril)
# Dilutional anemia
follow counts
# hyponatremia, resolved
# hypocalcemia, improved
# hypomagnesemia, resolved
# Type 2 diabetes mellitus
A1C 7.7%
started Lantus 12 units HS
cont ISS
restarted diabetic diet and meds when able
# Essential hypertension
BP stable on Toprol and Valsartan
# Hyperlipidemia
oral meds on hold
DVT prophylaxis--Lovenox SQ
CODE STATUS--full code
Original Note:
Today's Communication/Plan
-
Downgrade to telemetry
Continue Rocephin
Monitor counts and vitals
Wean O2 as able
PT/OT after transfer
Assessment / Plan
Assessment / Plan
79 year old female with:
#Acute hypoxemic respiratory failure requiring intubation with shock physiology/lactic acidosis--with fevers and leukocytosis, septic shock now most likely--CAT scan of the chest is negative for pulmonary embolism but suspicion for PNA--culture
streptococcus pyogenes--likely 2/2 right leg cellulitis vs pneumonia -- ID following -- switched cefepime to ceftriaxone -- CAT scan of the chest is negative for pulmonary embolism but suspicion for PNA-- off Levophed --continue to monitor
BPs--patient tachypneic, has been on and off on BiPAP-- cxr showed mild atelectasis, will need repeat cxr in 4 weeks -- repeat BCx no growth in 48 hrs - will downgrade to telemetry, wean O2 as able -- patient wheezing on exam -- will start
prednisone 40mg x5 days
#Acute congestive heart failure with reduced EF--STAT echo done due to chronic LBBB--EF 30%--s/p cath with large diagonal 70% stenosis and LAD 50% with peak troponin 11--suspect Takusubo--cardiology following for wide complex tachycardia--amiodarone
dc'ed--cont low dose metoprolol and valsartan--monitor BPs
#Leukocytosis--likely 2/2 infection, patient with lactic acidosis and CT chest with suspicion for pneumonia--blood culture gram + cocci, urine culture neg, switched to ceftriaxone--lactates now WNL--pt with c/o RLE pain (weeks)(has redness and
swelling)--ultrasound negative for lower extremity venous thrombus--pt has wound care --downtrending -- continue Rocephin
#Acute anemia--hgb trending upwards-- now 9.9 --follow counts
#CAROLYN--mildly elevated Cr of 1.1--likely secondary to diuretics use--not on lasix now--will continue to monitor Cr -- now resolved Cr 1.0
#Hyponatremia--replete as needed
#Type 2 diabetes mellitus--on sliding scale insulin coverage--HGB A1C 7.7% -- continue insulin
#Essential hypertension--all outpatient meds on hold given BPs--cardiology following--now on valsartan
#Hyperlipidemia--continue statin
DVT prophylaxis--Lovenox ordered
CODE STATUS--full code
Anticipated Discharge: Within 24 hours
Subjective/Interval History
-
Date of Service: November 20, 2024
Objective Data
-
Labs:
Laboratory Results
11/20/24
05:20
WBC 13.5 H
Hgb 9.9 L
Hct 29.9 L
Plt Count 221
Sodium 136
Potassium 4.1
Chloride 105
Carbon Dioxide 21 L
BUN 42 H
Creatinine 1.0
Glucose 127 H
Calcium 8.3 L
Vital Signs:
Vital Signs
Temp Pulse Resp BP Pulse Ox
97.5 F 65 24 111/61 98
11/20/24 06:55 11/20/24 06:00 11/20/24 06:00 11/20/24 06:00 11/20/24 06:00
I&O
11/19/24 11/20/24 11/21/24
06:59 06:59 06:59
Intake Total 553.5 / 553.5
Output Total 1510 / 1535 1775 / 1775
Balance -956.5 / -981.5 -1745 / -1745
Review of Systems
-
History Source: Patient
Constitutional: Reports No Symptoms
EENT: Reports No Symptoms Reported
Respiratory: Reports No Symptoms
Cardiac: Reports No Symptoms
Abdomen/GI: Reports No Symptoms
Breast: Reports No Symptoms
Genitourinary: Reports No Symptoms
Musculoskeletal: Reports No Symptoms
Skin: Reports No Symptoms
Neuro: Reports No Symptoms
Endocrine: Reports No Symptoms
Hematologic / Lymphatic: Reports No Symptoms
Allergy / Immunology: Reports No Symptoms
Physical Exam
-
General: Well Developed, Well Nourished, No Apparent Distress, Comfortable and Morbidly Obese
HEENT: Normocephalic
Respiratory: Wheezes
Cardiac: Regular Rhythm and S1/S2
GI: Soft, Nontender and Normal Bowel Sounds
Genito-urinary: No Costovertebral Tender
Musculoskeletal: No Clubbing and No Cyanosis
Skin: Warm
Neuro: Awake, Alert and Oriented
Hematologic / Lymphatic: No Lymphadenopathy
Psych: Calm
[2024-11-20 07:49] LABS: Glucose - Point of Care 143 mg/dl (70-99)
--- NOTE | 2024-11-20 08:15 | PTCARENOTE ---
Assumed care of pt at 0715 following shift report. pt awake and sitting up in bed to eat breakfast. Denies c/o pain or SOB. 'I feel pretty good'. Physial assessment completed as documented. Comfort care provided. Call gordon w/in pt reach and safe
environment maintained.
--- NOTE | 2024-11-20 08:27 | W.PN.CD ---
Today's Communication / Plan
-
Patient tolerating low-dose Toprol and valsartan
Add spironolactone
Monitor renal function
Will titrate meds as tolerated and consider transitioning from valsartan to Entresto prior to discharge if BP will allow
Case management assessing cost of meds including Entresto and Farxiga
Impression / Plan
-
79-year-old woman with a history of chronic left bundle branch block, hypertension, hypercholesterolemia and diabetes who presented with acute shortness of breath and respiratory failure requiring intubation, found to have group A strep bacteremia
and pneumonia. In the ER echocardiogram showed LVEF 30-35% with apical, distal anterior, distal lateral distal inferior distal septal hypokinesis. Subsequent cardiac catheterization revealed 50% LAD and 70% D1 stenoses which were not felt to be
significant enough to explain her cardiomyopathy. No coronary intervention was performed. Presumed diagnosis is Takotsubo's cardiomyopathy. She has since been extubated.
Mixed shock, distributive and cardiogenic -- RESOLVED
-She is now off of vasopressors
-Being treated for group A strep bacteremia and pneumonia with ID following
-Continue antibiotics per primary team
-Treatment of heart failure as below
Heart failure with reduced ejection fraction (LVEF 30-35%), acute
-Etiology presumed to be Takotsubo's cardiomyopathy in the setting of bacteremia and pneumonia
-[facility] 11/16/2024: 50% mLAD, 70% D1; LVEDP 26 mmHg (124 kg)
-GDMT:
-Increase metoprolol to 25 mg twice daily
-Switch lisinopril to valsartan 40mg BID. If she tolerates this and Entresto is affordable, switch to Entresto prior to discharge
-Start spironolactone 25 mg daily tomorrow if creatinine is stable (1.1 today from 0.9 yesterday)
-Case management to rob SGLT2 inhibitors
-Appears euvolemic. Elevated LVEDP on cath but this may be due to poor LV function. Hold on diuresis for now.
-Repeat echo 3 months. Assessment for ICD based on reassessment of LV function after GDMT
Ventilator dependent respiratory failure, resolved
-Likely due to group A strep pneumonia
-Extubated 11/18/2024. Continuing to require nasal cannula, wean as able.
-Pulmonary following
Coronary artery disease
-70% stenosis of large D1. 50% stenosis of LAD.
-Continue medical therapy
Wide-complex tachycardia, resolved
-Had WCT on admission in ER. Patient with underlying left bundle branch block patient with a heart rate of 150 and stable blood pressure. Likely aberrantly conducted SVT or possible atrial flutter. However not clearly flutter at this point to
warrant chcf anticoagulation. Will continue to monitor on telemetry.
-IV amiodarone stopped
-continue beta inderjit
Subjective: She feels improved today. Still confused about what happened during hospitalization. No alarms on telemetry.
Physical Exam
Vital Signs/Labs
Vital Signs
Temp Pulse Resp BP Pulse Ox
97.5 F 65 24 111/61 97
11/20/24 06:55 11/20/24 07:39 11/20/24 07:39 11/20/24 06:00 11/20/24 07:39
11/19/24 11/20/24 11/21/24
06:59 06:59 06:59
Actual Weight 125.7 kg 124.5 kg
11/20/24 05:20
11/20/24 05:20
PT 13.7 Sec (11.4-14.6) 11/16/24 06:42
INR 1.02 11/16/24 06:42
APTT 26.2 Sec (23.4-35.0) 11/16/24 06:42
Magnesium 2.4 mg/dl (1.6-2.3) H 11/20/24 05:20
Triglycerides 231 mg/dl (10-149) H 11/19/24 04:57
LDL Cholesterol, Calc 18 mg/dl 11/17/24 04:21
VLDL Cholesterol, Calc 42 mg/dl (0-30) H 11/17/24 04:21
HDL Cholesterol 30 mg/dl 11/17/24 04:21
11/16/24
06:42
[id number]-L-[id number] Pept 353
Physical Exam
Constitutional: No acute distress
Cardiovascular: Rhythm & rate is regular
Respiratory: Rhonchi Absent, Wheeze Present and Crackles Present (bases)
GI: Soft
Neuro/Psych: Alert
Data Reviewed
-
Date of Service: November 20, 2024
Medical Decision Making: Reviewed Test Results
X-Ray/CT/US/MRI/NUC/PET: Report Reviewed by me
Medical Tests (PFT, Pathology etc): Report Reviewed by me
Labs: Labs Reviewed by me
--- NOTE | 2024-11-20 08:31 | W.PN.PUL3 ---
Today's Communication / Plan
-
Continue prn BiPAP
ABx per ID
Aspiration precautions
Titrate down O2 while keeping SpO2 >90-94%
Check walking pulse oximetry prior to discharge
Continue Xopenex + Atrovent
Continue diuresis as tolerated
Repeat echo in near future to reassess EF given Takotsubo's cardiomyopathy diagnosed this admission
Outpatient evaluation to discuss sleep disordered breathing
Patient improving with her oxygen requirements. Outpatient pulmonary office follow-up will be arranged for sleep apnea evaluation as well as PFTs and 6 MWT. No additional recommendations at this time. Pulmonary service will now sign off. Please
reconsult if there are any additional questions/concerns, or if patient's respiratory status deteriorates.
Assessment
-
Assessment: 79-year-old female with a past medical history of hypertension, hyperlipidemia, DM type II and history of recurrent UTI who presents with shortness of breath. Saturation at home while on room air was 82%. She has been having right leg
pain for about 3 months. Patient's shortness of breath worsened en route here to the hospital. In arrival to the ER she was short of breath with conversational dyspnea and hypoxic, and was intubated. Initial EKG showed a left bundle branch block.
After intubation she developed wide-complex tachycardia and placed onto IV amiodarone. She also was cardioverted which failed. Cardiology consulted with plans for left heart catheterization. Initially in the ER she was tachypneic to 25
breaths/min, saturating 96% on BiPAP, and pulse rate 79. Initial labs showed leukocytosis to 26, respiratory acidosis with pH 7.22, pCO2 56, glucose 304, lactate 4.2, and COVID-19 antigen negative. Flu A/B swab was negative and blood cultures were
collected. CXR showed bibasilar parenchymal opacities suspicious for atelectasis versus pneumonia, as well as acute interstitial edema with prominent vascular congestion. Subsequent CTA chest showed volume overload with bilateral pleural
effusions, bibasilar consolidative opacities, and upper lobe predominant interlobular septal thickening with scattered subtle groundglass opacities. Patient was brought to the [facility] and found to have a 50% eccentric lesion in the mid LAD as well
as a 70% lesion in the proximal margin of the large first diagonal branch. Also severely elevated LVEDP at 26 mmHg and akinesis of the mid and apical left ventricle consistent with Takotsubo's cardiomyopathy patient transferred to the ICU for
further care and referral clerk services consulted for additional management/recommendations.
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
Impression:
#Acute respiratory failure with hypoxia + hypercapnia in setting of acute decompensated heart failure + suspected pneumonia requiring intubation (11/16/2024) --> extubated 11/17/2024
#Shock due to cardiogenic + septic - shock state resolved as of 11/17/2024
#Multifocal consolidative opacities in the right upper lobe + lower lobes (seen on CTA chest from 11/16/2024) concerning for pneumonia
#Streptococcal (GAS) bacteremia (BCx + SCx from 11/16/2024 growing Streptococcus pyogenes)
#Nonpurulent right lower extremity cellulitis
#Hx of LBBB s/p left heart cath showing a 50% eccentric lesion in the mid LAD as well as a 70% lesion in the proximal margin of the diagonal vessel, with severely elevated LVEDP at 26 mmHg and mid and apical LV akinesis consistent with Takotsubo's
cardiomyopathy
#Leukocytosis
#WCT due to NSVT vs A-fib with aberrancy now on amiodarone drip
#DM type II complicated by hyperglycemia
#Lactic acidosis � resolved as of 11/17/2024
#Elevated troponin (initial troponin negative at 0.03 and then rise to 2.65 after left heart cath - peaked at 11.2 on 11/16/2024)
#History of hypertension
#History of hyperlipidemia
#History of recurrent UTI
#Morbid obesity (BMI: 41)
Plan:
- Extubated on 11/17/2024 and now currently on nasal cannula
- She was tachypneic during the day on 11/18/2024 requiring BiPAP and diuresis � tolerated BiPAP throughout the night on 11/18 - 11/19/2024 and she is much better today
- Currently saturating 97% on 4 L/min
- Continue to titrate O2 flow rate to keep SpO2 >90-94%
- Aspiration precautions by keeping HOB >30-45�
- Continue xopenex and atrovent TID
- prn nebulized bronchodilators - not currently bronchospastic, although the hospitalist heard wheezing on exam and started her on prednisone 40 mg daily with plan to give x 5 days total
- Check walking pulse oximetry prior to discharge
- Patient underwent left heart cath on 11/16/2024 and was diagnosed with Takotsubo's cardiomyopathy. She does have a 50% eccentric lesion in the mid LAD as well as a 70% lesion in the proximal margin of the first diagonal branch - no PCI performed
- Of note, prior EKG from 2018 also showed evidence of LBBB
- Defer GDMT to cardiology (toprol-XL started 11/19/2024)
- ASA started 11/17; unable to do high intensity statin given transaminitis; recommend to start statin once able to given her LAD lesions --> defer to cardiology
- Given wide-complex tachycardia that was present after intubation, continue with amiodarone, currently at 0.5 mg/min
- Cardiology on board and recommendations appreciated
- Echo performed 11/16/2024 showing LVEF 30-35% with stage III diastolic dysfunction with increased filling pressures, normal RV size with mildly reduced function, with elevated RAP at 18 mmHg and PASP moderately elevated at 47 mmHg; there was
akinesis of the entire LV with some dyskinesis of the IV septum and apex --> hence diagnosis of Takotsubo's CM
- Her CTA chest on 11.16.2024 showed bilateral dependent confluent parenchymal opacities with RUL consolidation, likely due to pneumonia although component of atelectasis from bilateral pleural effusions with pulmonary edema is more likely at least
at the bases
- She also has suspected RLE cellulitis --> LE duplex negative for DVT
- Patient has group A strep bacteremia from blood culture on 11/16/2024 --> continue rocephin s/p cefepime (11/16-11/18/2024), doxycycline (11/16-11/18/2024) and IV vancomycin (11/16-11/18/2024) given negative MRSA swab and nonpurulent RLE cellulitis
- Follow-up BCx sensitivities from 11/16/2024
- Follow up set of surveillance blood Cx from 11/17 (NGTD)
- Sputum Cx from ETT on 11/16/2024 also growing GAS
- Negative urine antigens for legionella and Strep PNA
- Follow up urine Cx (NGTD - 11/16/2024)
- MRSA swab negative --> IV vancomycin DC'd
- Trend WBC and monitor fever curve
- ID consulted due to Strep pyrogenes in SCx and BCx - defer Abx to them
- She will need repeat imaging in 4-6 weeks to follow-up pneumonia resolution
- Maintain MAP>65
- Not currently requiring vasopressors since 11/17
- Lactate was 2 as of 11/17, no need to continue trending
- Troponin peaked at 11.2 on 11/16/2024 --> no longer need to continue trending at this time
- Replete electrolytes with K>4, Mg>2
- Maintain euglycemia with goal BG 140-180 using ISS AC + continue lantus
- Trend H/H and transfuse if needed to keep Hb>7-8g/dL; keep plt>20k, unless there is concern for bleeding then keep plt>50k
- PT/OT - PT rec'd skilled vs home PT; OT rec'd skilled rehab
- DVT ppx: LMWH
Patient improving with her oxygen requirements. Outpatient pulmonary office follow-up will be arranged for sleep apnea evaluation as well as PFTs and 6 MWT. No additional recommendations at this time. Pulmonary service will now sign off. Thank
you for allowing us to be involved in the care of this patient. Please reconsult if there are any additional questions/concerns, or if patient's respiratory status deteriorates.
Data:
CTA Chest 11/16/2024:
Respiratory motion degradation limits evaluation of pulmonary vasculature beyond the segmental level. As far as visualized, no pulmonary arterial filling defects are identified to suggest pulmonary embolus.
Pulmonary parenchymal process, as described, suspicious for combination of pneumonia and atelectasis. Scattered regions of subtle groundglass opacity are noted. Possible mild edema or nonspecific pneumonitis.
Total time spent today was 39 minutes for this encounter. Time includes reviewing laboratory test/imaging results, reviewing pertinent medical records, obtaining and reviewing medical history, performing an appropriate exam, ordering medications,
tests and procedures. Time also includes documentation of this encounter, coordinating patient care and communicating with other healthcare professionals. Total time does not include separately billed tests performed on this date of service.
Subjective Data
-
Date of Service:
Date of Service: November 20, 2024
Chief Complaint: Pulmonary Follow Up and Pneumonia Follow Up
Subjective:
Patient seen and evaluated this morning. On 4 L/min saturating 97%, heart rate 69 and BP 120/68. Her daughter was in the room and all questions were answered. Patient eager to leave the hospital but still too weak to walk around independently.
She currently feels well and denies chest pain, SOB at rest, JOHN, nausea, fevers or chills.
Review of Systems
General: Other (Negative unless mentioned above)
Objective Data
Data Reviewed
Vital Signs / I&O / Oxygen:
Vital Signs
Temp Pulse Resp BP Pulse Ox
97.5 F 75 24 127/63 97
11/20/24 06:55 11/20/24 09:01 11/20/24 07:39 11/20/24 09:01 11/20/24 07:39
Intake and Output
11/19/24 11/20/24 11/21/24
06:59 06:59 06:59
Intake Total 553.5 / 553.5 30
Output Total 1510 / 1535 1775 / 1775
Balance -956.5 / -981.5 -1745 / -1745
SaO2 [CPAP] 96
SaO2 [A/C] 96
SaO2 97
Nasal Cannula flow liters per 4
minute
Physical Exam
General: Respiratory Distress (negative), Comfortable, Chills (negative) and Sweats (negative)
HEENT: Normocephalic and Anicteric
Cardiovascular: S1-S2 and Peripheral Edema (Trace lower extremity edema bilaterally)
Respiratory: Wheeze (negative), Crackles (Bibasilar), Rhonchi (negative) and Non-Labored Respirations
GI: Soft, Distended (Abdominal obesity), Non Tender and Normal Bowel Sounds
Neurology: AO x 3 and Tremors (negative)
Skin: Warm, Dry, Cyanosis (negative), Jaundice (negative) and Other (Bandage lower extremities bilaterally)
Labs/Micro/Reports
Lab Data
11/20/24 05:20
11/20/24 05:20
Microbiology
11/16/24 07:10 Blood/Venous Blood Culture - Preliminary
No Growth in 4 days- Final report to follow
11/17/24 15:17 Blood/Venous Blood Culture - Preliminary
No Growth in 48 hours- Final report to follow
11/16/24 07:10 Blood/Venous Blood Culture - Preliminary
Streptococcus pyogenes
11/16/24 07:10 Blood/Venous Gram Stain - Preliminary
11/16/24 23:13 Endotracheal Respiratory Culture - Final
Streptococcus pyogenes
11/16/24 23:13 Endotracheal Gram Stain - Final
11/16/24 16:38 Nose MRSA Screen - Final
No Methicillin Resistant Staphylococcus aureus isolated.
11/16/24 13:05 Urine Urine Culture - Final
NO GROWTH
11/16/24 16:38 Urine Legionella Urinary Antigen - Final
Negative for Legionella pneumophila Serogroup 1 antigen.
A negative result does not rule out the possiblity of
Legionella infection due to other serogroups or species of
Legionella. Clinical correlation is recommended.
11/16/24 16:38 Urine Streptococcus pneumoniae Antigen (M - Final
Negative for Streptococcus pneumoniae antigen.
A negative result does not exclude infection with
Streptococcus pneumoniae. Clinical correlation is
recommended.
--- NOTE | 2024-11-20 08:58 | CM ---
Patient and at bedside. Patient for possible transition out of ICU per physician. Patient and indicated that they do not want to go to a SNF if possible. PT recommendation is home PT vs SNF, plan is to continue to monitor and family
will assess options as patient is closer to discharge. CM will continue to follow for discharge planning needs.
Plan; home with VN vs SNF
[2024-11-20] MEDS: ASPIR LOW (ENTERIC COATED) 81 MG PO (08:59)
[2024-11-20] MEDS: DIOVAN 40 MG PO ×2 (09:00→20:04)
[2024-11-20] MEDS: TOPROL XL 25 MG PO ×2 (09:01→20:03)
[2024-11-20] MEDS: JANUVIA 100 MG PO (09:01)
[2024-11-20] MEDS: HYDROPHOR 1 APPLIC TOPICAL (09:02)
[2024-11-20] MEDS: DESENEX/MITRAZOL/ZEASORB 1 APPLIC TOPICAL ×2 (09:02→20:05)
--- NOTE | 2024-11-20 12:00 | PTCARENOTE ---
Pt OOB in chair following visit from PT/OT. Pt tolerating increased activity w/o complication or complaint. Pt requesting to use BSC. Moderate assist one staff w/ use of walker to transfer/ambulate chair to BSC. Returned to chair. Assisted w/ AM
hygiene. No changes from previous assessment findings.
[2024-11-20] MEDS: NOVOLOG FLEXPEN-HIGH RESISTANCE 4 UNITS SC ×2 (12:12→17:46)
[2024-11-20] MEDS: DELTASONE 40 MG PO (12:12)
[2024-11-20 12:21] LABS: Glucose - Point of Care 216 mg/dl (70-99)
--- NOTE | 2024-11-20 13:18 | W.PN.ID1 ---
Date of Service
Date of Service: November 20, 2024
Today's Communication
Continue ceftriaxone.
Assessment / Plan
# Group A strep bacteremia
# Group A strep pneumonia
# RLE cellulitis (group A strep)
# s/p septic shock off pressor.
# Fever resovled
# Leukocytosis trending down
# Takotsubo cardiomyopathy
- repeat blood cx negative
- Trend wbc.
- Continue ceftriaxone (d5 abx)
- Eventual po abx.
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
Diabetes mellitus
Hypertension
Dyslipidemia
Appendectomy
Bilateral TKR
Bilateral THR
Chief Complaint
-: Pneumonia, Cellulitis and Bacteremia
Subjective / Review of Systems
Continues to feel better.
Vital Signs / Physical Exam
Vital Signs
Vital Signs
Temp Pulse Resp BP Pulse Ox
97.7 F 75 24 127/63 98
11/20/24 11:00 11/20/24 09:01 11/20/24 07:39 11/20/24 09:01 11/20/24 07:55
Physical Exam
Constitutional: No Acute Distress and Comfortable
Eyes: No Conjunctival Hemorrhage and Sclera Anicteric
Cardiovascular: Regular Rate and S1/S2
Pulmonary: Coarse (bases)
Gastrointestinal: Soft, Non Tender and Non Distended
Extremities: Edema and Erythema (RLE receding from above knee, darker in color)
Neurological: Awake and AO x 3
Objective Data
Lab Data
Lab Results
11/20/24 05:20
11/20/24 05:20
PT 13.7 Sec (11.4-14.6) 11/16/24 06:42
INR 1.02 11/16/24 06:42
APTT 26.2 Sec (23.4-35.0) 11/16/24 06:42
Estimated Creat Clear 67 ml/min 11/20/24 05:20
Lactic Acid 2.0 mmol/L (0.7-2.0) 11/17/24 04:21
Total Bilirubin 0.4 mg/dl (0.2-1.3) 11/18/24 03:08
AST 122 U/L (14-36) H 11/18/24 03:08
ALT 111 U/L (0-35) H 11/18/24 03:08
Alkaline Phosphatase 67 U/L (38-126) 11/18/24 03:08
Most recent labs reviewed.
Micro Results:
11/16/24 07:10 Blood Culture - Preliminary
Blood/Venous No Growth in 4 days- Final report to follow
11/17/24 15:17 Blood Culture - Preliminary
Blood/Venous No Growth in 48 hours- Final report to follow
11/16/24 07:10 Blood Culture - Preliminary
Blood/Venous Streptococcus pyogenes
Gram Stain - Preliminary
11/16/24 23:13 Respiratory Culture - Final
Endotracheal Streptococcus pyogenes
Gram Stain - Final
11/16/24 16:38 MRSA Screen - Final
Nose No Methicillin Resistant Staphylococcus aureus isolated.
11/16/24 13:05 Urine Culture - Final
Urine NO GROWTH
11/16/24 16:38 Legionella Urinary Antigen - Final
Urine Negative for Legionella pneumophila Serogroup 1 antigen.
A negative result does not rule out the possiblity of
Legionella infection due to other serogroups or species of
Legionella. Clinical correlation is recommended.
Streptococcus pneumoniae Antigen (M - Final
Negative for Streptococcus pneumoniae antigen.
A negative result does not exclude infection with
Streptococcus pneumoniae. Clinical correlation is
recommended.
11/16/24 07:07 Influenza Types A & B (BLAISE) - Final
Nasal Swab Negative for Influenza A & B, NAAT
Negative results must be combined with clinical observations
and patient history.
Nucleic Acid Amplification test (NAAT)performed on the
[employer] platform.
11/18/24 CXR: Mild atelectasis in the lung bases. Low lung volumes. No large pleural effusion or pneumothorax. Stable cardiomediastinal silhouette.
11/16/[address]: Respiratory motion degradation limits evaluation of pulmonary vasculature beyond the segmental level. As far as visualized, no pulmonary arterial filling defects are identified to suggest pulmonary embolus. Pulmonary parenchymal
process, as described, suspicious for combination of pneumonia and atelectasis. Scattered regions of subtle groundglass opacity are noted. Possible mild edema or nonspecific pneumonitis.
--- NOTE | 2024-11-20 15:07 | PTCARENOTE ---
Transfer report called to 'Orestes DUVAL'. Pt to transfer to Rm [id number] via . No changes noted or new complaints received.
--- NOTE | 2024-11-20 16:57 | PTCARENOTE ---
Pt arrived as transfer from ICU. Pt is alert and conversive. Breathing unlabored on 3L NC. Reviewed plan of care w/ pt and at bedside.
[2024-11-20 17:19] LABS: Glucose - Point of Care 226 mg/dl (70-99)
[2024-11-20] MEDS: ROCEPHIN 2000 MG IV (18:05)
[2024-11-20] MEDS: LOVENOX 40 MG SC (18:05)
[2024-11-20] MEDS: STERILE WATER FOR INJECTION 20 ML IV (18:06)
[2024-11-20] MEDS: LIPITOR 20 MG PO (21:34)
[2024-11-20] MEDS: LANTUS 0.12 UNITS SC (21:34)
[2024-11-20] MEDS: NEURONTIN 300 MG PO (21:34)
[2024-11-20] MEDS: NOVOLOG FLEXPEN-HIGH RESISTANCE 10 UNITS SC (21:40)
[2024-11-20 21:44] LABS: Glucose - Point of Care 303 mg/dl (70-99)
[2024-11-21] VITALS (7 sets, daily range): BP systolic 110–153; BP diastolic 57–81; PULSE 62; O2SAT 94; BMI 39.9
[2024-11-21 06:12] LABS: Hematocrit 29.8 % (37.0-47.0); Hemoglobin 9.6 g/dL (12.0-16.0); Mean Corp Hgb Conc. 32.2 g/dL (33.0-37.0); Mean Corpuscular Hgb 28.2 pg (27.0-31.0); Mean Corpuscular Volume 87.4 fL (81.0-99.0); Mean Platelet Volume 9.7 fL (7.4-10.4); Platelet Count 263 10^3/uL (130-400); Red Blood Cell Count 3.41 10^6/uL (4.20-5.40)
[2024-11-21 06:41] LABS: Blood Urea Nitrogen 45 mg/dl (7-17); Calcium 8.4 mg/dl (8.4-10.2); Carbon Dioxide 24 mmol/L (22-30); Chloride 106 mmol/L (98-107); Estimated Creatinine Clearance 66 ml/min; Glucose 129 mg/dl (70-99); Potassium 4.8 mmol/L (3.5-5.1); Sodium 140 mmol/L (135-145); eGFR 58.02
[2024-11-21] MEDS: ATROVENT NEBULES 0.5 MG INH ×3 (07:12→20:11)
[2024-11-21] MEDS: XOPENEX 1.25 MG INHALANT SOLUTION INH ×3 (07:12→20:11)
[2024-11-21 07:34] LABS: Glucose - Point of Care 140 mg/dl (70-99)
--- NOTE | 2024-11-21 07:46 | W.PN.HOSP.TC ---
Addendum entered and electronically signed by Mary Donahue MD 11/21/24 11:24:
I saw and evaluated the patient. I reviewed the resident�s note and agree with findings and plan as documented in the resident�s note.
A/P:
# Septic shock with Acute hypoxic respiratory failure
# Strep pneumonia with Strep bacteremia
# RLE cellulitis (group A strep)
# Lactic acidosis, resolved
off levophed
Pt extubated 11/17/2024, cont O2 support, currently on 3L NC and wean as tolerated
blood and resp cultures positive for strep pyogenes (group A Strep)
Cont Rocephin
apprec ID
CAT scan of the chest is negative for pulmonary embolism but suspicion for PNA
# acute systolic congestive heart failure
# Suspected Takotsubo cardiomyopathy with ejection fraction of 30 to 35%
troponin peaked at 11
s/p cath with large diagonal 70% stenosis and LAD 50%
Pt was started with amiodarone, now off
Cont newly added Toprol XL 25 mg BID, valsartan 40 mg twice daily (in place of prior to admission lisinopril)
# Dilutional anemia
follow counts
# hyponatremia, resolved
# hypocalcemia, improved
# hypomagnesemia, resolved
# Type 2 diabetes mellitus
A1C 7.7%
started Lantus 12 units HS
cont ISS
restarted diabetic diet and meds when able
# Essential hypertension
BP stable on Toprol and Valsartan
# Hyperlipidemia
oral meds on hold
DVT prophylaxis--Lovenox SQ
CODE STATUS--full code
Original Note:
Today's Communication/Plan
-
Wean O2 as able
Continue Rocephin and transition to oral amoxicillin 1g q8h at time of discharge (through 11/29/24)
OT/PT
Assessment / Plan
Assessment / Plan
79 year old female with:
#Acute hypoxemic respiratory failure requiring intubation with shock physiology/lactic acidosis--with fevers and leukocytosis, septic shock now most likely--CAT scan of the chest is negative for pulmonary embolism but suspicion for PNA--culture
streptococcus pyogenes--likely 2/2 right leg cellulitis vs pneumonia -- ID following -- switched cefepime to ceftriaxone -- CAT scan of the chest is negative for pulmonary embolism but suspicion for PNA-- off Levophed --continue to monitor
BPs--patient tachypneic, has been on and off on BiPAP-- cxr showed mild atelectasis, will need repeat cxr in 4 weeks -- repeat BCx no growth -- wean O2 as able, currently on 3L -- continue prednisone 40mg x5 days (D2)
#Acute congestive heart failure with reduced EF--STAT echo done due to chronic LBBB--EF 30%--s/p cath with large diagonal 70% stenosis and LAD 50% with peak troponin 11--suspect Takusubo--cardiology following for wide complex tachycardia--amiodarone
dc'ed--cont low dose metoprolol and valsartan--monitor BPs
#Leukocytosis--likely 2/2 infection, patient with lactic acidosis and CT chest with suspicion for pneumonia--blood culture gram + cocci, urine culture neg, switched to ceftriaxone--lactates now WNL--pt with c/o RLE pain (weeks)(has redness and
swelling)--ultrasound negative for lower extremity venous thrombus--pt has wound care --downtrending -- continue Rocephin (D4 on Rocephin, D6 on abx) -- ID following -- Transition to amoxicillin 1g po q8h through 11/29/24 at time of dc
#Acute anemia--hgb trending upwards-- now 9.6 --follow counts
#CAROLYN--mildly elevated Cr of 1.1--likely secondary to diuretics use--not on lasix now--will continue to monitor Cr -- now resolved Cr 1.0
#Hyponatremia--replete as needed -- now resolved
#Type 2 diabetes mellitus--on sliding scale insulin coverage--HGB A1C 7.7% -- continue insulin
#Essential hypertension--all outpatient meds on hold given BPs--cardiology following--now on valsartan
#Hyperlipidemia--continue statin
DVT prophylaxis--Lovenox ordered
CODE STATUS--full code
Anticipated Discharge: Within 24 hours
Subjective/Interval History
-
Date of Service: November 21, 2024
Objective Data
-
Labs:
Laboratory Results
11/21/24
05:26
WBC 12.0 H
Hgb 9.6 L
Hct 29.8 L
Plt Count 263
Sodium 140
Potassium 4.8
Chloride 106
Carbon Dioxide 24
BUN 45 H
Creatinine 1.0
Glucose 129 H
Calcium 8.4
Vital Signs:
Vital Signs
Temp Pulse Resp BP Pulse Ox
98.3 F 68 18 110/57 98
11/21/24 03:31 11/21/24 07:15 11/21/24 07:15 11/21/24 03:31 11/21/24 07:15
I&O
11/20/24 11/21/24 11/22/24
06:59 06:59 06:59
Intake Total 720 / 720
Output Total 177 / 177
Balance -1745 / -174 720 / 720
Review of Systems
-
History Source: Patient
Constitutional: Reports No Symptoms
EENT: Reports No Symptoms Reported
Respiratory: Reports No Symptoms
Cardiac: Reports No Symptoms
Abdomen/GI: Reports No Symptoms
Breast: Reports No Symptoms
Genitourinary: Reports No Symptoms
Musculoskeletal: Reports No Symptoms
Skin: Reports Other (redness of right lower extremity)
Neuro: Reports No Symptoms
Endocrine: Reports No Symptoms
Hematologic / Lymphatic: Reports No Symptoms
Allergy / Immunology: Reports No Symptoms
Physical Exam
-
General: Well Developed and Well Nourished
HEENT: Normocephalic
Respiratory: Clear to Auscultation
Cardiac: Regular Rhythm and S1/S2
Breast: Deferred by me
GI: Soft, Nontender and Nondistended
Genito-urinary: No Costovertebral Tender
Musculoskeletal: No Clubbing, No Cyanosis and Other (right leg cellulitis)
Skin: Warm
Neuro: Awake, Alert and Oriented
Hematologic / Lymphatic: No Lymphadenopathy
Psych: Calm
[2024-11-21] MEDS: NOVOLOG FLEXPEN-HIGH RESISTANCE 1 UNITS SC (08:11)
[2024-11-21] MEDS: DELTASONE 40 MG PO (08:12)
[2024-11-21] MEDS: TOPROL XL 25 MG PO ×2 (08:12→20:35)
[2024-11-21] MEDS: ASPIR LOW (ENTERIC COATED) 81 MG PO (08:12)
[2024-11-21] MEDS: JANUVIA 100 MG PO (08:12)
[2024-11-21] MEDS: DIOVAN 40 MG PO ×2 (08:12→20:35)
[2024-11-21] MEDS: DESENEX/MITRAZOL/ZEASORB 1 APPLIC TOPICAL ×2 (08:14→20:36)
[2024-11-21] MEDS: HYDROPHOR 1 APPLIC TOPICAL (08:15)
--- NOTE | 2024-11-21 08:55 | W.PN.CD ---
Today's Communication / Plan
-
Wean O2 as tolerated. Currently on 4 L. Appears to have room to wean. Respiratory failure was primarily due to pneumonia. If there is a limit on how much we can wean the O2 then can try a dose of Lasix to see if we get further reduction.
Continue with current therapy.
Can start Farxiga if okay with primary team. They are managing issues related to her diabetes. Patient does report having issues with UTIs about 7 years ago some of this appeared to be the around the time she had a Castillo catheter and had surgery
has not had recent UTIs. Of note they are comfortable with Farxiga since her is on
Case management checking cost of Entresto if affordable would change valsartan to low-dose Entresto.
Impression / Plan
-
79-year-old woman with a history of chronic left bundle branch block, hypertension, hypercholesterolemia and diabetes who presented with acute shortness of breath and respiratory failure requiring intubation, found to have group A strep bacteremia
and pneumonia. In the ER echocardiogram showed LVEF 30-35% with apical, distal anterior, distal lateral distal inferior distal septal hypokinesis. Subsequent cardiac catheterization revealed 50% LAD and 70% D1 stenoses which were not felt to be
significant enough to explain her cardiomyopathy. No coronary intervention was performed. Presumed diagnosis is Takotsubo's cardiomyopathy. She has since been extubated.
Mixed shock, distributive and cardiogenic -- RESOLVED
-She is now off of vasopressors
-Being treated for group A strep bacteremia and pneumonia with ID following
-Continue antibiotics per primary team
-Treatment of heart failure as below
Heart failure with reduced ejection fraction (LVEF 30-35%), acute
-Etiology presumed to be Takotsubo's cardiomyopathy in the setting of bacteremia and pneumonia
-[facility] 11/16/2024: 50% mLAD, 70% D1; LVEDP 26 mmHg (124 kg)
-GDMT:
-Increase metoprolol to 25 mg twice daily
- valsartan 40mg BID. If she tolerates this and Entresto is affordable, switch to Entresto prior to discharge
-S pironolactone 25 mg daily- monitor labs
-Case management to rob SGLT2 inhibitors
-Appears euvolemic. Elevated LVEDP on cath but this may be due to poor LV function. Hold on diuresis for now.
-Repeat echo 3 months. Assessment for ICD based on reassessment of LV function after GDMT
Ventilator dependent respiratory failure, resolved
-Likely due to group A strep pneumonia
-Extubated 11/18/2024. Continuing to require nasal cannula, wean as able.
-Pulmonary following
Coronary artery disease
-70% stenosis of large D1. 50% stenosis of LAD.
-Continue medical therapy
Wide-complex tachycardia, resolved
-Had WCT on admission in ER. Patient with underlying left bundle branch block patient with a heart rate of 150 and stable blood pressure. Likely aberrantly conducted SVT or possible atrial flutter. However not clearly flutter at this point to
warrant fpc anticoagulation. Will continue to monitor on telemetry.
-IV amiodarone stopped
-continue beta inderjit
Subjective: She feels improved today. Still confused about what happened during hospitalization. No alarms on telemetry.
Physical Exam
Vital Signs/Labs
Vital Signs
Temp Pulse Resp BP Pulse Ox
97.4 F 68 24 130/68 96
11/21/24 07:44 11/21/24 08:12 11/21/24 07:44 11/21/24 08:12 11/21/24 07:44
11/20/24 11/21/24 11/22/24
06:59 06:59 06:59
Actual Weight 124.5 kg 122.515 kg
11/21/24 05:26
11/21/24 05:26
PT 13.7 Sec (11.4-14.6) 11/16/24 06:42
INR 1.02 11/16/24 06:42
APTT 26.2 Sec (23.4-35.0) 11/16/24 06:42
Magnesium 2.4 mg/dl (1.6-2.3) H 11/20/24 05:20
Triglycerides 231 mg/dl (10-149) H 11/19/24 04:57
LDL Cholesterol, Calc 18 mg/dl 11/17/24 04:21
VLDL Cholesterol, Calc 42 mg/dl (0-30) H 11/17/24 04:21
HDL Cholesterol 30 mg/dl 11/17/24 04:21
11/16/24
06:42
[id number]-[id number] Pept 353
Physical Exam
Constitutional: No acute distress
Cardiovascular: Rhythm & rate is regular
Respiratory: Wheeze Absent and Rhonchi Absent
GI: Soft
Neuro/Psych: Alert
Data Reviewed
-
Date of Service: November 21, 2024
Medical Decision Making: Reviewed Test Results
Echo: Report Reviewed by me
X-Ray/CT/US/MRI/NUC/PET: Report Reviewed by me
Medical Tests (PFT, Pathology etc): Report Reviewed by me
Labs: Labs Reviewed by me
--- NOTE | 2024-11-21 10:46 | W.PN.ID1 ---
Date of Service
Date of Service: November 21, 2024
Today's Communication
- Continue ceftriaxone (d6 abx)
- At time of dc, can transition to amoxicillin 1g po q8h through 11/29/24.
Assessment / Plan
# Group A strep bacteremia
# Group A strep pneumonia
# RLE cellulitis (group A strep)
# s/p septic shock off pressor.
# Fever resolved
# Leukocytosis trending down
# Takotsubo cardiomyopathy
- repeat blood cx negative
- Trend wbc.
- Waen off oxygen as tolerated
- Continue ceftriaxone (d6 abx)
- At time of dc, can transition to amoxicillin 1g po q8h through 11/29/24.
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
Diabetes mellitus
Hypertension
Dyslipidemia
Appendectomy
Bilateral TKR
Bilateral THR
Chief Complaint
-: Pneumonia, Cellulitis and Bacteremia
Subjective / Review of Systems
Continues to feel better. Asking if she can amublate out in hallway.
Vital Signs / Physical Exam
Vital Signs
Vital Signs
Temp Pulse Resp BP Pulse Ox
97.4 F 68 24 130/68 96
11/21/24 07:44 11/21/24 08:12 11/21/24 07:44 11/21/24 08:12 11/21/24 10:02
Physical Exam
Constitutional: No Acute Distress and Comfortable
Pulmonary: Rales (Mild bibasilar crackles. )
Gastrointestinal: Soft, Non Tender, Non Distended and Normal Bowel Sounds
Extremities: Edema (BLE) and Erythema (RLE: darker, receding)
Neurological: AO x 3
Objective Data
Lab Data
Lab Results
11/21/24 05:26
11/21/24 05:26
PT 13.7 Sec (11.4-14.6) 11/16/24 06:42
INR 1.02 11/16/24 06:42
APTT 26.2 Sec (23.4-35.0) 11/16/24 06:42
Estimated Creat Clear 66 ml/min 11/21/24 05:26
Lactic Acid 2.0 mmol/L (0.7-2.0) 11/17/24 04:21
Total Bilirubin 0.4 mg/dl (0.2-1.3) 11/18/24 03:08
AST 122 U/L (14-36) H 11/18/24 03:08
ALT 111 U/L (0-35) H 11/18/24 03:08
Alkaline Phosphatase 67 U/L (38-126) 11/18/24 03:08
Most recent labs reviewed.
Micro Results:
11/16/24 07:10 Blood Culture - Final
Blood/Venous No Growth - Final Report
11/17/24 15:17 Blood Culture - Preliminary
Blood/Venous No Growth in 72 hours- Final report to follow
11/16/24 07:10 Blood Culture - Preliminary
Blood/Venous Streptococcus pyogenes
Gram Stain - Preliminary
11/16/24 23:13 Respiratory Culture - Final
Endotracheal Streptococcus pyogenes
Gram Stain - Final
11/16/24 16:38 MRSA Screen - Final
Nose No Methicillin Resistant Staphylococcus aureus isolated.
11/16/24 13:05 Urine Culture - Final
Urine NO GROWTH
11/16/24 16:38 Legionella Urinary Antigen - Final
Urine Negative for Legionella pneumophila Serogroup 1 antigen.
A negative result does not rule out the possiblity of
Legionella infection due to other serogroups or species of
Legionella. Clinical correlation is recommended.
Streptococcus pneumoniae Antigen (M - Final
Negative for Streptococcus pneumoniae antigen.
A negative result does not exclude infection with
Streptococcus pneumoniae. Clinical correlation is
recommended.
11/16/24 07:07 Influenza Types A & B (BLAISE) - Final
Nasal Swab Negative for Influenza A & B, NAAT
Negative results must be combined with clinical observations
and patient history.
Nucleic Acid Amplification test (NAAT)performed on the
[employer] platform.
11/18/24 CXR: Mild atelectasis in the lung bases. Low lung volumes. No large pleural effusion or pneumothorax. Stable cardiomediastinal silhouette.
11/16/[address]: Respiratory motion degradation limits evaluation of pulmonary vasculature beyond the segmental level. As far as visualized, no pulmonary arterial filling defects are identified to suggest pulmonary embolus. Pulmonary parenchymal
process, as described, suspicious for combination of pneumonia and atelectasis. Scattered regions of subtle groundglass opacity are noted. Possible mild edema or nonspecific pneumonitis.
[2024-11-21 11:55] LABS: Glucose - Point of Care 202 mg/dl (70-99)
[2024-11-21] MEDS: NOVOLOG FLEXPEN-HIGH RESISTANCE 4 UNITS SC ×2 (12:31→22:06)
--- NOTE | 2024-11-21 14:15 | PTCARENOTE ---
MD, cardio and ID made aware patient ambulated in room with PT, 89% on RA, MARROQUIN, O2 sat improved to 92% on RA after sitting in chair with pursed lip breathing per PT. Patient 96% on 2L at this time, states no concerns.
--- NOTE | 2024-11-21 14:38 | PN.CDI ---
CDI
- -
CDI:
Physician Documentation Request
Admit Date: 11/16/24 09:57
Dear Doctor Hai,
Patient admitted with sepsis. Progress notes also contain a diagnosis of shock.
Hospitalist states 'septic shock'
Cardiology states 'mixed, distributive and cardiogenic'
Pulmonary states 'cardiogenic and septic'
Please clarify the type of shock:
Septic shock
Cardiogenic shock
Distributive shock
Multifactorial - please specify
Other
Use of terms such as suspected, likely, concern for, or probable (associated with a specific diagnosis that is being evaluated, monitored, or treated as if it exists) are acceptable and can be coded in the inpatient setting, when documented at the
time of discharge.
Thank you,
Nanette De La Rosa RN, BSN
CDI Specialist
tiger text
Please use your independent medical judgment in providing your response.
[2024-11-21 16:08] LABS: Glucose - Point of Care 281 mg/dl (70-99)
[2024-11-21] MEDS: STERILE WATER FOR INJECTION 20 ML IV (17:23)
[2024-11-21] MEDS: ROCEPHIN 2000 MG IV (17:23)
[2024-11-21] MEDS: LOVENOX 40 MG SC (17:23)
[2024-11-21] MEDS: NOVOLOG FLEXPEN-HIGH RESISTANCE 7 UNITS SC (17:24)
[2024-11-21 22:04] LABS: Glucose - Point of Care 234 mg/dl (70-99)
[2024-11-21] MEDS: LIPITOR 20 MG PO (22:06)
[2024-11-21] MEDS: NEURONTIN 300 MG PO (22:06)
[2024-11-21] MEDS: LANTUS 0.12 UNITS SC (22:06)
[2024-11-22 03:22] VITALS: BP 139/76
[2024-11-22 05:24] VITALS: BMI 40.0
[2024-11-22 06:20] LABS: % Basophils 0.8 % (0-2); % Eosinophils 2.1 % (0-6); % Immature Granulocytes 4.7 % (0-0.5); % Lymphocytes 14.8 % (20.5-51.1); % Monocytes 8.9 % (1.7-9.3); % Neutrophils 68.7 % (42.2-75.2); Absolute Basophils 0.1 10^3/uL (0-0.2); Absolute Eosinophils 0.2 10^3/uL (0-0.7); Absolute Immature Granulocytes 0.5 10^3/uL (0-0.05); Absolute Lymphocytes 1.6 10^3/uL (1.2-3.4); Absolute Neutrophils 7.4 10^3/uL (1.4-6.5); Hematocrit 30.7 % (37.0-47.0); Hemoglobin 9.8 g/dL (12.0-16.0); Mean Corp Hgb Conc. 31.9 g/dL (33.0-37.0); Mean Corpuscular Hgb 28.3 pg (27.0-31.0); Mean Corpuscular Volume 88.7 fL (81.0-99.0); Mean Platelet Volume 9.5 fL (7.4-10.4); Nucleated Red Blood Cells % 0 %; Platelet Count 298 10^3/uL (130-400); Red Blood Cell Count 3.46 10^6/uL (4.20-5.40); Red Cell Dist. Width 14.1 % (11.5-14.5); White Blood Cell Count 10.7 10^3/uL (4.8-10.8)
[2024-11-22 06:48] LABS: Blood Urea Nitrogen 41 mg/dl (7-17); Calcium 8.8 mg/dl (8.4-10.2); Carbon Dioxide 25 mmol/L (22-30); Chloride 107 mmol/L (98-107); Estimated Creatinine Clearance 83 ml/min; Glucose 115 mg/dl (70-99); Potassium 4.5 mmol/L (3.5-5.1); Sodium 141 mmol/L (135-145); eGFR > 60.00
[2024-11-22 07:05] VITALS: BP 150/75
[2024-11-22] MEDS: XOPENEX 1.25 MG INHALANT SOLUTION INH ×2 (07:12→13:31)
[2024-11-22] MEDS: ATROVENT NEBULES 0.5 MG INH ×2 (07:12→13:32)
[2024-11-22 07:14] LABS: Glucose - Point of Care 117 mg/dl (70-99)
[2024-11-22] MEDS: NOVOLOG FLEXPEN-HIGH RESISTANCE 1 UNITS SC (07:42)
[2024-11-22] MEDS: DELTASONE 40 MG PO (07:43)
[2024-11-22] MEDS: JANUVIA 100 MG PO (07:43)
[2024-11-22] MEDS: DIOVAN 40 MG PO (07:43)
[2024-11-22] MEDS: ASPIR LOW (ENTERIC COATED) 81 MG PO (07:43)
[2024-11-22] MEDS: TOPROL XL 25 MG PO (07:44)
[2024-11-22] MEDS: DESENEX/MITRAZOL/ZEASORB 1 APPLIC TOPICAL (07:47)
[2024-11-22] MEDS: HYDROPHOR 1 APPLIC TOPICAL (07:48)
--- NOTE | 2024-11-22 08:02 | W.PN.CD ---
Today's Communication / Plan
-
Increased valsartan to 160 mg
Started spironolactone 25 mg
Monitor labs
awaiting case management pricing of sglt2i and Entresto
Impression / Plan
-
79-year-old woman with a history of chronic left bundle branch block, hypertension, hypercholesterolemia and diabetes who presented with acute shortness of breath and respiratory failure requiring intubation, found to have group A strep bacteremia
and pneumonia. In the ER echocardiogram showed LVEF 30-35% with apical, distal anterior, distal lateral distal inferior distal septal hypokinesis. Subsequent cardiac catheterization revealed 50% LAD and 70% D1 stenoses which were not felt to be
significant enough to explain her cardiomyopathy. No coronary intervention was performed. Presumed diagnosis is Takotsubo's cardiomyopathy. She has since been extubated.
Mixed shock, distributive and cardiogenic -- RESOLVED
-She is now off of vasopressors
-Being treated for group A strep bacteremia and pneumonia with ID following
-Continue antibiotics per primary team
-Treatment of heart failure as below
Heart failure with reduced ejection fraction (LVEF 30-35%), acute
-Etiology presumed to be Takotsubo's cardiomyopathy in the setting of bacteremia and pneumonia
-[facility] 11/16/2024: 50% mLAD, 70% D1; LVEDP 26 mmHg (124 kg), now 122 kg 11/22
-GDMT:
-Increase metoprolol to 25 mg twice daily
- BP is elevated last two days will increase valsartan to 160mg daily. If she tolerates this and Entresto is affordable, switch to Entresto prior to discharge
-S pironolactone 25 mg daily- monitor labs
-Case management to rob SGLT2 inhibitors
-Appears euvolemic. Elevated LVEDP on cath but this may be due to poor LV function. Hold on diuresis for now.
-Repeat echo 3 months. Assessment for ICD based on reassessment of LV function after GDMT
Ventilator dependent respiratory failure, resolved
-Likely due to group A strep pneumonia
-Extubated 11/18/2024. Continuing to require nasal cannula, wean as able.
-Pulmonary following
Coronary artery disease
-70% stenosis of large D1. 50% stenosis of LAD.
-Continue medical therapy
Wide-complex tachycardia, resolved
-Had WCT on admission in ER. Patient with underlying left bundle branch block patient with a heart rate of 150 and stable blood pressure. Likely aberrantly conducted SVT or possible atrial flutter. However not clearly flutter at this point to
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 Will continue to monitor on telemetry.
-IV amiodarone stopped
-continue beta inderjit
Subjective: Overall feeling improved hopeful to leave in next day or two
Physical Exam
Vital Signs/Labs
Vital Signs
Temp Pulse Resp BP Pulse Ox
98.1 F 70 16 150/75 95
11/22/24 03:22 11/22/24 07:44 11/22/24 07:15 11/22/24 07:44 11/22/24 07:15
11/21/24 11/22/24 11/23/24
06:59 06:59 06:59
Actual Weight 270 lb 1.6 oz 270 lb 9.6 oz
11/22/24 05:27
11/22/24 05:27
PT 13.7 Sec (11.4-14.6) 11/16/24 06:42
INR 1.02 11/16/24 06:42
APTT 26.2 Sec (23.4-35.0) 11/16/24 06:42
Magnesium 2.4 mg/dl (1.6-2.3) H 11/20/24 05:20
Triglycerides 231 mg/dl (10-149) H 11/19/24 04:57
LDL Cholesterol, Calc 18 mg/dl 11/17/24 04:21
VLDL Cholesterol, Calc 42 mg/dl (0-30) H 11/17/24 04:21
HDL Cholesterol 30 mg/dl 11/17/24 04:21
11/16/24
06:42
[id number] Pept 353
Physical Exam
Constitutional: No acute distress
EENT: Anicteric
Cardiovascular: Rhythm & rate is regular
Respiratory: Respiratory effort normal
GI: Soft
Neuro/Psych: AO x 3
Data Reviewed
-
Date of Service: November 22, 2024
Medical Decision Making: Reviewed Test Results
EKG: Tracing Personally Visualized and interpreted (sr)
Echo: Report Reviewed by me
Labs: Labs Reviewed by me
[2024-11-22] MEDS: ALDACTONE 25 MG PO (11:11)
[2024-11-22 11:32] VITALS: BP 135/68
--- NOTE | 2024-11-22 11:34 | CM ---
Addendum entered by Shanta Hunt 11/22/24 15:03:
Met with patient and spouse at bedside
IMM benefit explained; form signed
Plan: Discharge to home with [facility]
will transport home
Original Note:
CM spoke with patient and spouse via phone; explained that PT recommended rehab at SNF when stable for discharge; patient prefers to go home with home health services
Referral sent to [facility]
--- NOTE | 2024-11-22 11:45 | W.PN.ID1 ---
Date of Service
Date of Service: November 22, 2024
Today's Communication
- Continue ceftriaxone (d7 abx)
- At time of dc, can transition to amoxicillin 1g po q8h through 11/29/24.
Assessment / Plan
# Group A strep bacteremia
# Group A strep pneumonia
# RLE cellulitis (group A strep)
# s/p septic shock
# Fever resolved
# Leukocytosis resolved
# Takotsubo cardiomyopathy
- repeat blood cx negative
- Wean off oxygen as tolerated
- Continue ceftriaxone (d7 abx)
- At time of dc, can transition to amoxicillin 1g po q8h through 11/29/24.
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
Diabetes mellitus
Hypertension
Dyslipidemia
Appendectomy
Bilateral TKR
Bilateral THR
Chief Complaint
-: Pneumonia, Cellulitis and Bacteremia
Subjective / Review of Systems
Continues to feel better. Minimal cough.
Vital Signs / Physical Exam
Vital Signs
Vital Signs
Temp Pulse Resp BP Pulse Ox
98.0 F 68 20 135/68 94
11/22/24 11:32 11/22/24 11:32 11/22/24 11:32 11/22/24 11:32 11/22/24 11:32
Physical Exam
Constitutional: No Acute Distress
Pulmonary: Rales (Mild bibasilar crackles. )
Gastrointestinal: Soft, Non Tender, Non Distended and Normal Bowel Sounds
Extremities: Edema (BLE) and Erythema (RLE: erythema decreasing and receding)
Neurological: AO x 3
Objective Data
Lab Data
Lab Results
11/22/24 05:27
11/22/24 05:27
PT 13.7 Sec (11.4-14.6) 11/16/24 06:42
INR 1.02 11/16/24 06:42
APTT 26.2 Sec (23.4-35.0) 11/16/24 06:42
Estimated Creat Clear 83 ml/min 11/22/24 05:27
Lactic Acid 2.0 mmol/L (0.7-2.0) 11/17/24 04:21
Total Bilirubin 0.4 mg/dl (0.2-1.3) 11/18/24 03:08
AST 122 U/L (14-36) H 11/18/24 03:08
ALT 111 U/L (0-35) H 11/18/24 03:08
Alkaline Phosphatase 67 U/L (38-126) 11/18/24 03:08
Most recent labs reviewed.
Micro Results:
11/17/24 15:17 Blood Culture - Preliminary
Blood/Venous No Growth in 4 days- Final report to follow
11/16/24 07:10 Blood Culture - Final
Blood/Venous No Growth - Final Report
11/16/24 07:10 Blood Culture - Preliminary
Blood/Venous Streptococcus pyogenes
Gram Stain - Preliminary
11/16/24 23:13 Respiratory Culture - Final
Endotracheal Streptococcus pyogenes
Gram Stain - Final
11/16/24 16:38 MRSA Screen - Final
Nose No Methicillin Resistant Staphylococcus aureus isolated.
11/16/24 13:05 Urine Culture - Final
Urine NO GROWTH
11/16/24 16:38 Legionella Urinary Antigen - Final
Urine Negative for Legionella pneumophila Serogroup 1 antigen.
A negative result does not rule out the possiblity of
Legionella infection due to other serogroups or species of
Legionella. Clinical correlation is recommended.
Streptococcus pneumoniae Antigen (M - Final
Negative for Streptococcus pneumoniae antigen.
A negative result does not exclude infection with
Streptococcus pneumoniae. Clinical correlation is
recommended.
11/16/24 07:07 Influenza Types A & B (BLAISE) - Final
Nasal Swab Negative for Influenza A & B, NAAT
Negative results must be combined with clinical observations
and patient history.
Nucleic Acid Amplification test (NAAT)performed on the
[employer] platform.
11/18/24 CXR: Mild atelectasis in the lung bases. Low lung volumes. No large pleural effusion or pneumothorax. Stable cardiomediastinal silhouette.
11/16/[address]: Respiratory motion degradation limits evaluation of pulmonary vasculature beyond the segmental level. As far as visualized, no pulmonary arterial filling defects are identified to suggest pulmonary embolus. Pulmonary parenchymal
process, as described, suspicious for combination of pneumonia and atelectasis. Scattered regions of subtle groundglass opacity are noted. Possible mild edema or nonspecific pneumonitis.
[2024-11-22 11:47] LABS: Glucose - Point of Care 205 mg/dl (70-99)
--- NOTE | 2024-11-22 12:30 | VNURNOTE ---
Home Health Liaison met with patient and daughter Cecelia at bedside to discuss [facility] nurse/therapy, visits, schedule and homebound status. Patient is primary CG for spouse who report he has brittle type 1 DM. Patient requested [facility] for spouse also.
She was advised to speak with her PCP who can order [facility] for spouse. Refusing SNF. Discussed with patient and daughter if patient is able to care for herself at home. Patient is interested in hiring private CGs for more assistance at home. Private
CG/homemaker list provided. Patient is agreeable to services and understands that visits at home will be 2-3 x per week to assess and teach medical management. [facility] brochure provided with contact information. Patient is aware that [facility] will contact
them for start of care in 1-2 days after discharge from . [facility] referral completed in [facility]. Watching for new home 02 needs.
[2024-11-22] MEDS: NOVOLOG FLEXPEN-HIGH RESISTANCE 4 UNITS SC (12:31)
--- NOTE | 2024-11-22 12:44 | W.PN.HOSP.TC ---
Addendum entered and electronically signed by Mary Donahue MD 11/22/24 14:30:
Total DC time 40 minutes
Original Note:
Today's Communication/Plan
-
see A/P
Assessment / Plan
Assessment / Plan
A/P:
# Septic shock with Acute hypoxic respiratory failure
# Strep pneumonia with Strep bacteremia
# RLE cellulitis (group A strep)
# Lactic acidosis, resolved
off levophed
Pt extubated 11/17/2024, cont O2 support, currently on 2L NC and wean as tolerated. Check walking pulse ox prior to DC for home O2 need (pt declined SNF)
blood and resp cultures positive for strep pyogenes (group A Strep)
Of note, CAT scan of the chest is negative for pulmonary embolism but suspicion for PNA
Cont Rocephin with plan to transition to amoxicillin 1g po q8h through 11/29/24 per ID
apprec ID
# acute systolic congestive heart failure
# Suspected Takotsubo cardiomyopathy with ejection fraction of 30 to 35%
troponin peaked at 11
s/p cath with large diagonal 70% stenosis and LAD 50%
Pt was started with amiodarone, now off
Cont newly added Toprol XL 25 mg BID, Valsartan increased to 160 mg, Spironolactone 25 mg
# Dilutional anemia
follow counts
# hyponatremia, resolved
# hypocalcemia, improved
# hypomagnesemia, resolved
# Type 2 diabetes mellitus
A1C 7.7%
started Lantus 12 units HS
cont ISS
restarted diabetic diet and meds when able
# Essential hypertension
BP stable on Toprol and Valsartan
# Hyperlipidemia
oral meds on hold
DVT prophylaxis--Lovenox SQ
CODE STATUS--full code
DW at bedside
Anticipated Discharge: Today
Subjective/Interval History
-
Date of Service: November 22, 2024
Objective Data
-
Labs:
Laboratory Results
11/22/24
05:27
WBC 10.7
Hgb 9.8 L
Hct 30.7 L
Plt Count 298
Sodium 141
Potassium 4.5
Chloride 107
Carbon Dioxide 25
BUN 41 H
Creatinine 0.8
Glucose 115 H
Calcium 8.8
Vital Signs:
Vital Signs
Temp Pulse Resp BP Pulse Ox
36.7 C 68 20 135/68 94
11/22/24 11:32 11/22/24 11:32 11/22/24 11:32 11/22/24 11:32 11/22/24 11:32
I&O
11/21/24 11/22/24 11/23/24
06:59 06:59 06:59
Intake Total 720 / 720 1620 / 1620
Output Total 475 / 475
Balance 720 / 720 1145 / 1145
Review of Systems
-
All other systems: Reviewed and negative
Physical Exam
-
General: Comfortable, Respiratory Distress (mild) and Conversant
HEENT: Oxygen (2L NC)
Respiratory: Crackles and Non Labored Respirations; Negative Accessory Resp Muscle Use
Neuro: Awake and Alert
Psych: Calm and Intact Judgement/Insight
Data Reviewed
-
Labs: Labs Reviewed by me
--- NOTE | 2024-11-22 14:06 | W.DCSUMMARY ---
Documented by User: Love Carroll MD, Resident 11/22/24 14:06
Discharge Summary
Discharge Data
Date of Admission: 11/16/24
Date of Discharge: 11/22/24
-
Pending Results: No
Hospital Course
Discharging Physician : Dr. Mary Donahue, Dr. Love Carroll
Disposition : Home with home care
Principal Discharge diagnosis :
Septic and cardiogenic shock
Acute respiratory hypoxemic failure
Right lower extremity cellulitis
Pneumonia
Takotsubo cardiomyopathy
Left bundle branch block
Wide complex tachycardia
Chronic Discharge diagnosis :
Chronic left bundle branch block
Premature ventricular complex
Nonsustained ventricular tachycardia
Diabetes type II
Hypertension
Recurrent urinary tract infections
Hospital Course :
79 y/o female with pmhx of HT, DM, history of chronic LBBB, NSVT, and PVCs brought to the ED via EMS after sudden onset SOB and hypoxia (82% on RA), and a history of right leg pain for the past 3 months. Pt was intubated upon arrival to the ED.
Developed wide complex tachycardia, cardioversion was done and amiodarone was started. Sgarbossa criteria was negative, trop negative. Cardiology was on board, echo revealed Takotsubo cardiomyopathy, EF=30-35%. With findings of wall motion
abnormalities on echocardiogram, there was concern for acute AZ and pt was taken to track repair laborer. Patient met criteria for shock (mixed, cardiogenic and septic). Blood culture was positive for streptococcus pyogenes. Abx treatment with
Vanco/Cefepime/Doxy was initiated. Chest CT was negative for PE, suspicious for atelectasis vs pneumonia. COVID, Flu neg. Pt was admitted to the ICU, extubated after one day and weaned off of amiodarone and levophed drips. Patient's clinical status
improved and was downgraded to telemetry. Infectious disease switched antibiotic to Rocephin. Pt also developed anemia during hospital stay but blood counts have been improving. Repeat blood culture is negative.
With overall improvement in patient's status, patient is medically stable for discharge. Patient weaned off of her oxygen. PT OT recommended SNF but patient wanted to go home. Discharged to home with home care, on amoxicillin 1g po q8h through
11/29/24. Newly started on Lantus during her hospital stay , continued at discharge. Advised to follow-up with cardiology outpatient for Matt and Andres.
Important imaging findings :
Chest CT (11/16/24): Pulmonary parenchymal process suspicious for combination of pneumonia and atelectasis. Scattered regions of subtle groundglass opacity are noted. Possible mild edema or nonspecific pneumonitis.
Fatty infiltration of liver. 2.5 cm left lobe hepatic cyst.
Bilateral LE venous US (11/18/24): No sonographic evidence for lower extremity venous thrombosis.
Procedure findings :
Clinical Informatics Specialist (11/16/24):
CONCLUSIONS
1. Right dominant circulation with a 50%, eccentric lesion in the mid LAD after the origin of a large diagonal and a 70% lesion in the proximal margin of the large first diagonal.
2. Severely elevated filling pressures (LVEDP = 26 mmHg at 124.0 kg).
3. Akinesis of the mid and apical left ventricle consistent with Takotsubo cardiomyopathy, LV ejection fraction = 30%.
RECOMMENDATIONS:
1. Expectant management after cardiac catheterization via right radial and left common femoral approach.
2. Limited weight bearing on the right wrist for one week.
3. Supportive care for Takotsubo cardiomyopathy with vasopressors and inotropic therapy.
4. Guideline directed medical therapy when hemodynamics will tolerate.
Discharge Plan
-
Patient Disposition: Home with Home Care
Discharge Diagnosis/Procedures: Septic and cardiogenic shock
Acute respiratory hypoxemic failure
Right lower extremity cellulitis
Pneumonia
Takotsubo cardiomyopathy
Left bundle branch block/ Wide complex tachycardia/Chronic left bundle branch block
Nonsustained ventricular tachycardia
Diabetes type II
Hypertension
Recurrent urinary tract infections
Condition: Fair
Diet: As tolerated and Diabetic, Carb Controlled
Activity: As tolerated
Driving Restrictions: Not until seen by your Dr
Others Tests: CXR in 4 weeks with your PCP
Activity Restrictions/Additional Instructions:
Wound Care Instructions
Can shower and wash with soap and water.
moisturize legs with mineral oil daily
If scabs start to drain on legs apply dry dressing daily.
Jed wraps knee high daily can remove at hs
leg elevation when sitting
Follow up at wound care center if wounds not healing, call for an appointment.
Referrals:
Kobe Dickey MD [Active] - in two to four weeks (full PFTs on day of office visit)
Yue Banks CRNP [Specified Professional Personl] - 12/13/24 7:40 am
Jennifer Gallardo MD [Family Provider] - in less than 1 week
Additional Discharge Medication Instructions: We have stopped your prior to admission lisinopril and hydrochlorothiazide.
We have added Toprol 25 mg daily, valsartan 160 mg daily, Aldactone 25 mg daily for blood pressure control and for your heart failure.
We have started you with insulin, continue with long-acting insulin Lantus at 12 units at night
Follow-up with your PCP for blood glucose monitoring
Prescriptions:
New
insulin glargine [Lantus Solostar U-100 Insulin] 100 unit/mL (3 mL) Insulin Pen
12 unit SC HS Qty: 5 2RF
(DME) pen needle, diabetic [BD Ultra-Fine Caridad Pen Needle] 32 gauge x 5/32' Needle
Qty: 200 0RF
Rx Instructions:
As Directed
spironolactone 25 mg Tablet
25 mg PO DAILY Qty: 30 0RF
prednisone 20 mg Tablet
40 mg PO DAILY Qty: 2 0RF
valsartan 160 mg Tablet
160 mg PO DAILY Qty: 30 0RF
metoprolol succinate 25 mg Tablet Extended Release 24 Hr
25 mg PO BID Qty: 60 0RF
amoxicillin 500 mg capsule
1,000 mg PO Q8H Qty: 23 0RF
Continued
Aspirin
81 mg PO DAILY
simvastatin 40 MG tablet
40 mg PO HS
ascorbic acid (vitamin C) [Vitamin C] 500 MG tablet
500 mg PO BID
vitamin B complex 1 EACH tablet
1 ea PO DAILY
cholecalciferol (vitamin D3) 1,000 UNIT capsule
1,000 unit PO DAILY
coenzyme Q10 [CoQ-10] 100 MG capsule
200 mg PO DAILY
lutein 20 MG capsule
20 mg PO DAILY
Calcium/Magnesium/Zinc
1 tab PO DAILY
Patient Comments:
patient not taking
Colon Health - Probiotic
1 tab PO DAILY
Over 40 Multivitamin
1 tab PO DAILY
Tramadol Hcl
50 mg PO DAILY
acetaminophen 325 MG tablet
2 PO BID
meclizine 25 mg Tablet
25 mg PO BID PRN (Reason: dizziness)
meloxicam 15 mg Tablet
7.5 mg PO HS
methenamine hippurate 1 gram Tablet
1 g PO BID
gabapentin 100 mg Capsule
300 mg PO HS
Januvia 100 mg Tablet
100 mg PO DAILY
Discontinued
hydrochlorothiazide 50 MG tablet
50 mg PO DAILY
lisinopril 10 MG tablet
20 mg PO DAILY
metformin [Glucophage XR] 500 MG tablet extended release 24 hr
1,000 mg PO BID
Discharge Orders:
Discharge Patient (As Directed); Ordered 11/22/24
Ordered By: Love Carroll
Discharge Date and Time
Print Language: SERBIAN

Documented by User: Mary Donahue MD 11/22/24 14:29
Discharge Summary
Discharge Data
Date of Admission: 11/16/24
Date of Discharge: 11/22/24
Hospital Course
Discharging Physician : Dr. Mary Donahue, Dr. Love Carroll
Disposition : Home with home care
Principal Discharge diagnosis :
Septic and cardiogenic shock
Acute hypoxic respiratory failure
Streptococcus pneumonia, with Streptococcus bacteremia
Right lower extremity cellulitis
Takotsubo cardiomyopathy
Left bundle branch block
Wide complex tachycardia
Chronic Discharge diagnosis :
Chronic left bundle branch block
Premature ventricular complex
Nonsustained ventricular tachycardia
Diabetes type II
Hypertension
Recurrent urinary tract infections
Hospital Course :
79 y/o female with pmhx of HT, DM, history of chronic LBBB, NSVT, and PVCs brought to the ED via EMS after sudden onset SOB and hypoxic respiratory failure (82% on RA).
Pt was intubated upon arrival to the ED. She was noted to have wide complex tachycardia. Cardioversion was done and amiodarone was started. Enterprise Business Architect took the patient to the track repair laborer for echo finding of EF 30-35% and wall motion abnormalities
(concern for cardiogenic shock). Her cardiac cath revealed clean coronaries with likely Takotsubo cardiomyopathy. She was started with Toprol, valsartan (in place of prior to admission lisinopril), and Aldactone this admission. She can continue
these meds following discharge.
Her blood culture and respiratory culture were positive for Streptococcus pyogenes, and she received empiric antibiotics Vanco/Cefepime/Doxy initially. She was supported with Levophed for septic shock, and levo was subsequently weaned off. She was
maintained on IV Rocephin while in the hospital and was discharged with amoxicillin 1 g every 8 hours (this would also cover for her right leg cellulitis).
With overall improvement in patient's status, she was cleared for discharge. Patient was weaned off of oxygen prior to discharge (her walking pulse ox did not reveal need for home oxygen therapy). PT OT recommended SNF but patient wanted to go
home, hence she was discharged home with home health.
Of note, she was started with insulin Lantus this admission and she can continue Lantus 12 units at bedtime following discharge.
Important imaging findings :
Chest CT (11/16/24): Pulmonary parenchymal process suspicious for combination of pneumonia and atelectasis. Scattered regions of subtle groundglass opacity are noted. Possible mild edema or nonspecific pneumonitis.
Fatty infiltration of liver. 2.5 cm left lobe hepatic cyst.
Bilateral LE venous US (11/18/24): No sonographic evidence for lower extremity venous thrombosis.
Procedure findings :
Clinical Informatics Specialist (11/16/24):
CONCLUSIONS
1. Right dominant circulation with a 50%, eccentric lesion in the mid LAD after the origin of a large diagonal and a 70% lesion in the proximal margin of the large first diagonal.
2. Severely elevated filling pressures (LVEDP = 26 mmHg at 124.0 kg).
3. Akinesis of the mid and apical left ventricle consistent with Takotsubo cardiomyopathy, LV ejection fraction = 30%.
RECOMMENDATIONS:
1. Expectant management after cardiac catheterization via right radial and left common femoral approach.
2. Limited weight bearing on the right wrist for one week.
3. Supportive care for Takotsubo cardiomyopathy with vasopressors and inotropic therapy.
4. Guideline directed medical therapy when hemodynamics will tolerate.
Discharge Plan
-
Patient Disposition: Home with Home Care
Discharge Diagnosis/Procedures: Septic and cardiogenic shock
Acute respiratory hypoxemic failure
Right lower extremity cellulitis
Pneumonia
Takotsubo cardiomyopathy
Left bundle branch block/ Wide complex tachycardia/Chronic left bundle branch block
Nonsustained ventricular tachycardia
Diabetes type II
Hypertension
Recurrent urinary tract infections
Condition: Fair
Diet: As tolerated and Diabetic, Carb Controlled
Activity: As tolerated
Driving Restrictions: Not until seen by your Dr
Others Tests: CXR in 4 weeks with your PCP
Activity Restrictions/Additional Instructions:
Wound Care Instructions
Can shower and wash with soap and water.
moisturize legs with mineral oil daily
If scabs start to drain on legs apply dry dressing daily.
Jed wraps knee high daily can remove at hs
leg elevation when sitting
Follow up at wound care center if wounds not healing, call for an appointment.
Referrals:
Kobe Dickey MD [Active] - in two to four weeks (full PFTs on day of office visit)
Yue Banks CRNP [Specified Professional Personl] - 12/13/24 7:40 am
Jennifer Gallardo MD [Family Provider] - in less than 1 week
Additional Discharge Medication Instructions: We have stopped your prior to admission lisinopril and hydrochlorothiazide.
We have added Toprol 25 mg daily, valsartan 160 mg daily, Aldactone 25 mg daily for blood pressure control and for your heart failure.
We have started you with insulin, continue with long-acting insulin Lantus at 12 units at night
Follow-up with your PCP for blood glucose monitoring
Prescriptions:
New
insulin glargine [Lantus Solostar U-100 Insulin] 100 unit/mL (3 mL) Insulin Pen
12 unit SC HS Qty: 5 2RF
(DME) pen needle, diabetic [BD Ultra-Fine Caridad Pen Needle] 32 gauge x 5/32' Needle
Qty: 200 0RF
Rx Instructions:
As Directed
spironolactone 25 mg Tablet
25 mg PO DAILY Qty: 30 0RF
prednisone 20 mg Tablet
40 mg PO DAILY Qty: 2 0RF
valsartan 160 mg Tablet
160 mg PO DAILY Qty: 30 0RF
metoprolol succinate 25 mg Tablet Extended Release 24 Hr
25 mg PO BID Qty: 60 0RF
amoxicillin 500 mg capsule
1,000 mg PO Q8H Qty: 23 0RF
Continued
Aspirin
81 mg PO DAILY
simvastatin 40 MG tablet
40 mg PO HS
ascorbic acid (vitamin C) [Vitamin C] 500 MG tablet
500 mg PO BID
vitamin B complex 1 EACH tablet
1 ea PO DAILY
cholecalciferol (vitamin D3) 1,000 UNIT capsule
1,000 unit PO DAILY
coenzyme Q10 [CoQ-10] 100 MG capsule
200 mg PO DAILY
lutein 20 MG capsule
20 mg PO DAILY
Calcium/Magnesium/Zinc
1 tab PO DAILY
Patient Comments:
patient not taking
Colon Health - Probiotic
1 tab PO DAILY
Over 40 Multivitamin
1 tab PO DAILY
Tramadol Hcl
50 mg PO DAILY
acetaminophen 325 MG tablet
2 PO BID
meclizine 25 mg Tablet
25 mg PO BID PRN (Reason: dizziness)
meloxicam 15 mg Tablet
7.5 mg PO HS
methenamine hippurate 1 gram Tablet
1 g PO BID
gabapentin 100 mg Capsule
300 mg PO HS
Januvia 100 mg Tablet
100 mg PO DAILY
Discontinued
hydrochlorothiazide 50 MG tablet
50 mg PO DAILY
lisinopril 10 MG tablet
20 mg PO DAILY
metformin [Glucophage XR] 500 MG tablet extended release 24 hr
1,000 mg PO BID
Discharge Orders:
Discharge Patient (As Directed); Ordered 11/22/24
Ordered By: Love Carroll
Discharge Date and Time
Print Language: SERBIAN
[2024-11-22 15:42] VITALS: BP 142/72
[2024-11-22 15:56] LABS: Glucose - Point of Care 263 mg/dl (70-99)
[2024-11-22] MEDS: NOVOLOG FLEXPEN-HIGH RESISTANCE 7 UNITS SC (16:16)
--- NOTE | 2024-11-22 17:23 | PTCARENOTE ---
Patient discharged home. Home O2 eval completed by resp prior to discharge - patient stable on RA. Patient being discharged on Lantus pen per MD, this RN provided teaching on how to use insulin pen and self inject insulin with patient and patient's
at bedside. Patient performed insulin injection for dinnertime insulin with this RN, verbalized and demonstrated understanding, verbalizing understanding as well. Patient's IV and tele pack removed by this RN. Patient dressed and
gathered belongings in room, taken down to 's car at [facility] via staff escort and wheelchair.
== END 2024-11-22 18:04 | disposition home health service (06) | DRG 871 ==
LOC: 2 NORTH 09:57
PROVIDERS: Emergency Medicine; Internal Medicine Cardiovascular Disease; Nurse Practitioner Primary Care; Radiology Diagnostic Radiology; Student in an Organized Health Care Education/Training Program; ADMITTING PHYSICIAN Internal Medicine; ATTENDING PHYSICIAN Internal Medicine; CONSULT PHYSICIAN Internal Medicine Cardiovascular Disease; CONSULT PHYSICIAN Internal Medicine Infectious Disease; EMERGENCY PHYSICIAN Student in an Organized Health Care Education/Training Program; FAMILY PHYSICIAN Internal Medicine; OTHER PHYSICIAN Internal Medicine Critical Care Medicine
PROC: 5A1935Z Respiratory Ventilation, Less than 24 Consecutive Hours (ICD-10-PCS; 2024-11-16)
PROC: B2151ZZ Fluoroscopy of Left Heart using Low Osmolar Contrast (ICD-10-PCS; 2024-11-16)
PROC: B2111ZZ Fluoroscopy of Multiple Coronary Arteries using Low Osmolar Contrast (ICD-10-PCS; 2024-11-16)
PROC: 4A023N7 Measurement of Cardiac Sampling and Pressure, Left Heart, Percutaneous Approach (ICD-10-PCS; 2024-11-16)
PROC: 5A09357 Assistance with Respiratory Ventilation, Less than 24 Consecutive Hours, Continuous Positive Airway Pressure (ICD-10-PCS; 2024-11-16)
PROC: 0BH17EZ Insertion of Endotracheal Airway into Trachea, Via Natural or Artificial Opening (ICD-10-PCS; 2024-11-16)
PROC: 0DH67UZ Insertion of Feeding Device into Stomach, Via Natural or Artificial Opening (ICD-10-PCS; 2024-11-17)
PROC: 0BP1XDZ Removal of Intraluminal Device from Trachea, External Approach (ICD-10-PCS; 2024-11-18)
DX: A40.0 Sepsis due to streptococcus, group A (principal); I50.21 Acute systolic (congestive) heart failure; J96.01 Acute respiratory failure with hypoxia; R65.21 Severe sepsis with septic shock; R57.0 Cardiogenic shock; J15.4 Pneumonia due to other streptococci; I48.92 Unspecified atrial flutter; I47.10 Supraventricular tachycardia, unspecified; I47.20 Ventricular tachycardia, unspecified; E87.20 Acidosis, unspecified; Z68.41 Body mass index [BMI] 40.0-44.9, adult; I51.81 Takotsubo syndrome; E87.1 Hypo-osmolality and hyponatremia; J98.11 Atelectasis; J90 Pleural effusion, not elsewhere classified; L03.115 Cellulitis of right lower limb; N17.9 Acute kidney failure, unspecified; Z99.11 Dependence on respirator [ventilator] status; E78.00 Pure hypercholesterolemia, unspecified; E11.65 Type 2 diabetes mellitus with hyperglycemia; M19.90 Unspecified osteoarthritis, unspecified site; I44.7 Left bundle-branch block, unspecified; E83.42 Hypomagnesemia; D64.9 Anemia, unspecified; I10 Essential (primary) hypertension; K76.0 Fatty (change of) liver, not elsewhere classified; K76.89 Other specified diseases of liver; E83.51 Hypocalcemia; E66.01 Morbid (severe) obesity due to excess calories; Z96.653 Presence of artificial knee joint, bilateral; Z96.643 Presence of artificial hip joint, bilateral; Z11.52 Encounter for screening for COVID-19; Z79.84 Long term (current) use of oral hypoglycemic drugs; Z79.82 Long term (current) use of aspirin; Z87.440 Personal history of urinary (tract) infections; Z82.49 Family history of ischemic heart disease and other diseases of the circulatory system; Z83.3 Family history of diabetes mellitus
CPT/HCPCS: 31500; 36556; 36600; 71045; 71275; 80048; 80053; 80061; 81003; 81015; 82330; 82805; 82962; 83036; 83605; 83735; 83880; 84100; 84132; 84302; 84443; 84478; 84484; 85025; 85027; 85610; 85730; 87040; 87070; 87077; 87086; 87147; 87205; 87449; 87502; 87811; 87899; 92960; 93005; 93306; 93458; 93970; 94002; 94003; 94640; 94660; 96365; 96366; 96367; 96375; 97163; 97167; 97530; 99152; 99153; 99291; 99292; C1760; C1894; Q9967

== ENCOUNTER → 2024-12-03 12:25 | Outpatient (REF) | payer MEDICARE, SELFPAY | LOC: WOUND 12:25 | PROVIDERS: ATTENDING PHYSICIAN Surgery; FAMILY PHYSICIAN Internal Medicine | DX: I87.311 Chronic venous hypertension (idiopathic) with ulcer of right lower extremity (principal); L97.311 Non-pressure chronic ulcer of right ankle limited to breakdown of skin; R60.1 Generalized edema; E11.9 Type 2 diabetes mellitus without complications; I44.7 Left bundle-branch block, unspecified; E66.09 Other obesity due to excess calories | CPT/HCPCS: 99213 ==

== ENCOUNTER → 2024-12-17 09:47 | Outpatient (REF) | payer MEDICARE, SELFPAY | LOC: WOUND 09:47 | PROVIDERS: ATTENDING PHYSICIAN Surgery; FAMILY PHYSICIAN Internal Medicine | DX: I87.311 Chronic venous hypertension (idiopathic) with ulcer of right lower extremity (principal); L97.311 Non-pressure chronic ulcer of right ankle limited to breakdown of skin; R60.1 Generalized edema; E11.9 Type 2 diabetes mellitus without complications; I44.7 Left bundle-branch block, unspecified; E66.09 Other obesity due to excess calories | CPT/HCPCS: 99213 ==

== ENCOUNTER → 2024-12-31 10:10 | Outpatient (REF) | payer MEDICARE, SELFPAY | LOC: WOUND 10:10 | PROVIDERS: ATTENDING PHYSICIAN Surgery; FAMILY PHYSICIAN Internal Medicine | DX: I87.311 Chronic venous hypertension (idiopathic) with ulcer of right lower extremity (principal); L97.311 Non-pressure chronic ulcer of right ankle limited to breakdown of skin; R60.1 Generalized edema; E11.9 Type 2 diabetes mellitus without complications; I44.7 Left bundle-branch block, unspecified; E66.09 Other obesity due to excess calories | CPT/HCPCS: 99213 ==

== ENCOUNTER → 2025-01-23 10:24 | Outpatient (REF) | payer MEDICARE, SELFPAY | LOC: RAD 10:24 | PROVIDERS: ATTENDING PHYSICIAN Nurse Practitioner Adult Health; FAMILY PHYSICIAN Internal Medicine | DX: J18.9 Pneumonia, unspecified organism (principal); A40.0 Sepsis due to streptococcus, group A | CPT/HCPCS: 71046 ==

== ENCOUNTER → 2025-02-18 09:50 | Outpatient (REF) | payer MEDICARE, SELFPAY | LOC: RCS 09:50 | PROVIDERS: ATTENDING PHYSICIAN Nurse Practitioner; FAMILY PHYSICIAN Internal Medicine | DX: I51.81 Takotsubo syndrome (principal) | CPT/HCPCS: 93308; 93321; 93325 ==